=== PATIENT | female | born 1955 | race Caucasian/White ===

== ENCOUNTER 2019-09-01 10:49 | Outpatient (CLI) | payer MEDICAID, SELFPAY ==
--- NOTE | 2019-09-01 | XR_ITS ---
WS: [id number] RIGHT KNEE: 2 VIEW(S) TECHNIQUE: AP and lateral. HISTORY: PAIN JOINT KNEE RIGHT COMPARISON: None available. Moderate narrowing of patellofemoral joint space with osteophytes. Mild narrowing of the medial and l ateral compartments. No fractures or dislocation. Hypertrophic osteophytes along the joint lines, gre atest at the patellofemoral joint space. No joint effusion. No soft tissue abnormality. XR/XR knee RT 1-2V [id number] IMPRESSION: 1. Moderate patellofemoral joint space arthritis. 2. No fracture.
== END 2019-09-01 10:50 | disposition home or self-care (01) ==
LOC: RADWPI 13:18
PROVIDERS: Family Provider Internal Medicine; Visit Provider Family Medicine
DX: M25.561 Pain in right knee (principal)

== ENCOUNTER → 2019-11-02 10:04 | Outpatient (BNVA) | payer MEDICAID, SELFPAY | PROVIDERS: Family Provider Internal Medicine; Referring Provider Family Medicine; Visit Provider Specialist | DX: M25.561 Pain in right knee (principal); M25.562 Pain in left knee; M17.11 Unilateral primary osteoarthritis, right knee | CPT/HCPCS: 73560; 73565 ==

== ENCOUNTER 2020-05-18 08:41 | Emergency (ER) | payer MEDICAID, SELFPAY ==
[2020-05-18 08:50] VITALS: BP 132/77; PULSE 56; RESP 16; TEMP 37.1; O2SAT 96; BMI 40.7
--- NOTE | 2020-05-18 08:50 | XR_ITS ---
WS: [id number] XR chest 1V portable [id number] REASON FOR EXAM: syncope FINDINGS: Mild to moderate tortuosity and ectasia of the thoracic aorta. Normal heart size. Calcified granulomatous changes in both hemithoraces, predominating on the right. No active pulmonary parenchymal pleural disease. Dorsal kyphosis with no significant thoracic vertebral body compression deformity. Mild degenerative spondylosis in the thoracic spine. XR/XR chest 1V portable [id number] IMPRESSION: No acute chest abnormality.
--- NOTE | 2020-05-18 09:20 | ED_ITS ---
HPI - Altered Mental Status General: Chief Complaint: Altered Mental Status Stated Complaint: ALOC, low BS Time Seen by Provider: 05/18/20 08:52 History of Present Illness: HPI narrative: 64-year-old female patient presents to the emergency department via EMS. She was found unresponsive by her spouse, EMS was contacted, CBG reading 47. Glucagon was administered during EMS transport. Patient became alert and oriented. She reports hypoglycemic episodes x2 days. She reports yesterday morning, a.m. CBG fasting was 54. She reports 2-day history of cough congestion. She reports low-grade fever last night at 100.0. She reports history of COPD, she is not on home O2 supplementation. She reports use of inhalers, Ventolin. She reports wheezing. She reports hungry upon exam, she reports feels well, O2 saturation on room air 96%. She denies chest pain or increased shortness of breath. MD complaint: decreased responsiveness (Due to hypoglycemia, now resolved) Timing confirmed by: spouse Context: change in medication and recent fever (100.0 last night) Associated symptoms: Reports no associated symptoms Treatments prior to arrival: glucose Review of Systems General: Reports: 10 or more systems reviewed and unremarkable except in HPI and below Const: Reports: fever(s) and chills; Denies: body aches, fatigue or diaphoresis Eyes: Denies: blurry vision or eye redness ENMT: Denies: throat pain, hoarseness, dental pain, ear or mastoid pain, disequilibrium, nasal discharge, nasal congestion, post nasal drip or sinus pain Card: Reports: swelling of feet/ankles (Chronic, lymphedema); Denies: chest pain, palpitations, irregular heart rhythm or orthopnea Resp: Reports: productive cough (White), wheezing, change in phlegm color and chest congestion; Denies: dyspnea, non-productive cough, pain on inspiration or hemoptysis GI: Denies: abdominal pain, nausea, vomiting, heartburn or constipation : Denies: difficulty voiding or dysuria Musc: Denies: neck pain, back pain or extremity pain Skin/Breast: Denies: rash or pruritus Neuro: Denies: headache(s), weakness in extremities or behavioral changes Mario/Lymph: Denies: easy bruising PFS ED PFSH: Social History Smoking and tobacco status: never smoked Alcohol intake: never Physical Exam Const: COMMON NORMALS: no acute distress, patient oriented x3, healthy appearing, alert and well nourished GENERAL APPEARANCE: cooperative, comfortable, well kempt and well hydrated NUTRITIONAL APPEARANCE: obese ORIENTATION/CONSCIOUSNESS: Yes awake, Yes oriented to person, Yes oriented to place and Yes oriented to time HENMT: COMMON NORMALS: normocephalic, atraumatic, external ears normal, Normal external nose present and moist oral mucous membranes HEAD & SCALP: normal to inspection, normocephalic and atraumatic FACE & SINUS: normal facial exam NOSE: Normal external nose present EXTERNAL EAR: Yes external ears normal MOUTH: Normal oral and palatal mucosa present THROAT: posterior oropharynx normal Eye: COMMON NORMALS: Equal, round and reactive pupils present and EOMs intact bilaterally GENERAL EYE: appearance normal, both eyes and all related structures PUPIL: Yes Equal, round and reactive pupils present Neck/C-Spine: COMMON NORMALS: full ROM, no lymphadenopathy and supple GENERAL: Yes normal visual inspection and Yes trachea midline CERVICAL SPINE: Yes cervical ROM normal Lymph: LYMPHATIC: no lymphadenopathy noted Chest: COMMONS NORMALS: normal inspection of the chest and normal palpation of entire chest wall Resp: COMMON NORMALS: normal respiratory effort and clear to auscultation bilaterally AUSCULTATION: clear to auscultation bilaterally, no rhonchi, no wheezes and diminished lung sounds on the left in the lower lung corona Cardio: COMMON NORMALS: regular rate, regular rhythm, S1 normal heart sound present, S2 normal heart sound present and Peripheral pulses 2+ throughout RATE: regular rate RHYTHM: regular rhythm HEART SOUNDS: S1 normal heart sound present and S2 normal heart sound present PERIPHERAL PULSES: Peripheral pulses 2+ throughout and other (Lymphedema to the BLE. Negative erythema or tenderness to the BLE) GI: COMMON NORMALS: Normal to inspection, nondistended, normoactive bowel sounds present, Soft to palpation and non-tender INSPECTION: Yes normal to inspection PALPATION: Yes Soft to palpation : COMMON NORMALS: Yes no CVA tenderness BLADDER/KIDNEY EXAM: Yes no CVA tenderness Back/Pelvis: COMMON NORMALS: no CVA tenderness and thoracic and lumbar spine normal to inspection Extremity: COMMON NORMALS: normal to inspection and capillary refill normal Neuro: COMMON NORMALS: patient oriented x3 and no focal motor deficits SENSORIUM/ORIENTATION: Yes alert, Yes oriented to person, Yes oriented to place and Yes oriented to time Psych: COMMON NORMALS: mental status grossly normal, Normal thought process present and cooperative APPEARANCE: Yes well kempt ACTIVITY/MOTOR BEHAVIOR: Yes appropriate eye contact THOUGHT PROCESS: Normal thought process present Skin: COMMON NORMALS: no rashes or lesions noted and turgor normal GENERAL SKIN EXAM: no rashes or lesions noted and turgor normal Course ED course: 64-year-old female patient presents to the emergency department with altered mental status, unresponsive secondary to hypoglycemia, blood sugar reading 47. She reports past 2 days of hypoglycemia, remains on glyburide at home. Accu-Chek here in the ED was 170 after eating breakfast. She reports feels great and is requesting to go home. She does not wish to stay in the hospital, she reports upon further evaluation potential possible COVID exposure through healthcare worker who cares for her daughter. Healthcare worker did not have symptoms but is being tested. She agrees to be tested here in the ED with call back to her tomorrow with results. She will be sent home with oxygen sensor, will monitor her oxygen at home and return to the emergency room if her oxygen drops below 92%. During her stay here in the emergency department her O2 saturation has remained 96 to 98% on room air. Reports feels great and agrees to follow-up with her primary care physician Dr. Richards in 5 to 7 days. She agrees to return to the emergency department if she develops chest pain, worsening shortness of breath or worsening symptoms. She is also requesting an antibiotic for her bronchitis. She reports can take amoxicillin but is allergic to penicillin, states penicillin gives her elevated temperature. She states unable to take doxycycline secondary to nausea vomiting that develops. She is requesting amoxicillin as antibiotic choice for bronchitis. She is aware cough and congestion could be related to COVID, viral illness. Agrees to continue with Ventolin inhalers. Vital Signs: Vital signs: Vital Signs Temperature 98.8 F 05/18/20 08:50 Pulse Rate 66 05/18/20 12:30 Respiratory Rate 20 H 05/18/20 12:30 Blood Pressure 158/80 05/18/20 12:30 Pulse Oximetry 96 05/18/20 12:30 MDM - Altered Mental Status Lab Data: Labs: Lab Results 10/07/20 10/07/20 10/07/20 Range/Units 09:39 09:39 09:39 WBC 9.2 (4.0-10.0) 10^3/ uL RBC 4.46 (4.1-5.3) 10^6/u L Hgb 13.7 (11.5-15.3) g/dL Hct 43.2 (37.0-47.0) % MCV 96.9 (81-99) fL MCH 30.7 (28.0-34.0) pg MCHC 31.7 (30.0-36.0) g/dL RDW 13.0 (12.1-15.1) % Plt Count 162 (130-400) 10^3/c mm MPV 10.7 H (7.4-10.4) fL Neut % (Auto) 83.2 % Lymph % (Auto) 7.5 % [place] % (Auto) 9.0 % Eos % (Auto) 0.0 % Baso % (Auto) 0.1 % Neut # (Auto) 7.68 (1.8-7.7) 10^3/u L Lymph # (Auto) 0.7 L (0.8-4.8) 10^3/u L [place] # (Auto) 0.8 (0.2-0.9) 10^3/u L Eos # (Auto) 0.0 (0.0-0.8) 10^3/u L Baso # (Auto) 0.0 (0.0-0.1) 10^3/u L Nucleated RBC % (a uto) 0 % Nucleated RBCs # 0.0 /100WBC Sodium 138 (136-145) mmol/L Potassium 4.2 (3.5-5.1) mmol/L Chloride 101 (98-107) mmol/L Carbon Dioxide 29 (22-29) mmol/L Anion Gap 12.2 (5-19) BUN 20 (8-23) mg/dL Creatinine 1.0 H (0.5-0.9) mg/dL GFR Calculation 55.8 L (90-130) mL/min Glucose 122 H (65-115) mg/dL POC Glucose (70-110) mg/dL Calculated Osmolal ity 290 (285-295) mOsm/k g Lactate 1.3 (0.5-2.2) mmol/L Calcium 9.4 (8.5-10.5) mg/dL Total Bilirubin 0.2 (0.15-1.2) mg/dL AST 32 (0-32) U/L ALT 27 (0-33) U/L Alkaline Phosphata se 74 (35-105) IU/L Total Protein 7.0 (6.6-8.7) g/dL Albumin 4.0 (3.5-5.2) g/dL Globulin 3.0 (1.3-4.6) g/dL Urine Color (Yellow) Urine Appearance (CLEAR) Urine pH (5-7) Ur Specific Gravit y (1.005-1.030) Urine Protein (Negative) Urine Glucose (UA) (Normal) Urine Ketones (Negative) Urine Blood (Negative) Urine Nitrate (Negative) Urine Bilirubin (Negative) Urine Urobilinogen (Negative) mg/dL Ur Leukocyte Esha ase (Negative) Urine RBC (0-2) /hpf Urine WBC (0-5) /hpf Ur Squamous Epith Cells (0-5) /hpf Amorphous Sediment Urine Bacteria (NONE) /hpf 05/18/20 05/18/20 Range/Units 11:13 11:30 WBC (4.0-10.0) 10^3/ uL RBC (4.1-5.3) 10^6/u L Hgb (11.5-15.3) g/dL Hct (37.0-47.0) % MCV (81-99) fL MCH (28.0-34.0) pg MCHC (30.0-36.0) g/dL RDW (12.1-15.1) % Plt Count (130-400) 10^3/c mm MPV (7.4-10.4) fL Neut % (Auto) % Lymph % (Auto) % [place] % (Auto) % Eos % (Auto) % Baso % (Auto) % Neut # (Auto) (1.8-7.7) 10^3/u L Lymph # (Auto) (0.8-4.8) 10^3/u L [place] # (Auto) (0.2-0.9) 10^3/u L Eos # (Auto) (0.0-0.8) 10^3/u L Baso # (Auto) (0.0-0.1) 10^3/u L Nucleated RBC % (a uto) % Nucleated RBCs # /100WBC Sodium (136-145) mmol/L Potassium (3.5-5.1) mmol/L Chloride (98-107) mmol/L Carbon Dioxide (22-29) mmol/L Anion Gap (5-19) BUN (8-23) mg/dL Creatinine (0.5-0.9) mg/dL GFR Calculation (90-130) mL/min Glucose (65-115) mg/dL POC Glucose 173 (70-110) mg/dL Calculated Osmolal ity (285-295) mOsm/k g Lactate (0.5-2.2) mmol/L Calcium (8.5-10.5) mg/dL Total Bilirubin (0.15-1.2) mg/dL AST (0-32) U/L ALT (0-33) U/L Alkaline Phosphata se (35-105) IU/L Total Protein (6.6-8.7) g/dL Albumin (3.5-5.2) g/dL Globulin (1.3-4.6) g/dL Urine Color Yellow (Yellow) Urine Appearance Sl hazy (CLEAR) Urine pH 5 (5-7) Ur Specific Gravit y 1.025 (1.005-1.030) Urine Protein Neg (Negative) Urine Glucose (UA) Norm (Normal) Urine Ketones Negative (Negative) Urine Blood Neg (Negative) Urine Nitrate Negative (Negative) Urine Bilirubin Neg (Negative) Urine Urobilinogen Norm (Negative) mg/dL Ur Leukocyte Esha ase Trace H (Negative) Urine RBC 0-4 H (0-2) /hpf Urine WBC 5-10 H (0-5) /hpf Ur Squamous Epith Cells 5-10 H (0-5) /hpf Amorphous Sediment Not Reportable Urine Bacteria 4+ H (NONE) /hpf Imaging Data^: CXR: Radiologist's impression: [address] [address] XRay Report Signed Patient: Celeste Rose #: [id number] : 6Acct#:[id number] Age/Sex: 64 / FADM Date: 05/18/20 Loc: ERRoom/Bed: Attending Dr: Ordering Provider/Ordering MD: Christine Conley Date of Service: 05/18/20 Procedure(s): XR chest 1V portable [id number] Accession Number(s): [id number] Report Number: [id number] WS: [id number] XR chest 1V portable [id number] REASON FOR EXAM: syncope FINDINGS: Mild to moderate tortuosity and ectasia of the thoracic aorta. Normal heart size. Calcified granulomatous changes in both hemithoraces, predominating on the right. No active pulmonary parenchymal pleural disease. Dorsal kyphosis with no significant thoracic vertebral body compression deformity. Mild degenerative spondylosis in the thoracic spine. XR/XR chest 1V portable [id number] IMPRESSION: No acute chest abnormality. Dictated By:Dagobetro Covington Jr, MD Signed By:Dagoberto Covington Jr MDSigned Date/Time:05/18/20912 DD/ 0 Discharge Plan Discharge Patient Disposition: Home Clinical Impression: Hypoglycemia, Acute bronchitis with COPD, Suspected 2019-nCoV infection Condition: Stable Prescriptions: New Augmentin 875-125 mg tablet 1 tab PO Q12H Qty: 14 RF: 0 Discontinued glyburide 5 mg Tablet 10 mg PO BID RF: 0 No Action acyclovir 200 mg capsule 400 mg PO BID RF: 0 cholecalciferol (vitamin D3) 25,000 unit capsule 50,000 unit PO .weekly RF: 0 fluoxetine 20 mg capsule 20 mg PO DAILY RF: 0 rosuvastatin 10 mg tablet 10 mg PO DAILY RF: 0 furosemide [Lasix] 40 mg tablet 40 mg PO DAILY RF: 0 losartan 50 mg tablet 50 mg PO DAILY RF: 0 Bydureon BCise 2 mg/0.85 mL auto-injector 2 mg SUBCUT Q7D RF: 0 valacyclovir 500 mg tablet 500 mg PO DAILY PRNRF: 0 psyllium husk [Daily Fiber] 0.52 gram capsule 0.52 gm PO TID RF: 0 Discharge Orders: Discharge Order (Routine); Ordered 05/18/20 Ordered By: Christine Conley Referrals: Irene Valladares [Family Provider] - Discharge Diet: Usual diet Discharge Activity: Resume usual activity Patient Instructions: Hypoglycemia, Chronic Bronchitis (ED) Activity Restrictions/Additional Instructions: COVID-19 results will be called to you, you were tested in the emergency department You have been supplied in oxygen sensor. Monitor your oxygen several times daily, if oxygen saturation drops below 92%, you are to return to the emergency department. Continue Tylenol as needed for fever/chills. Take antibiotics until all gone. Continue inhalers as directed Follow-up with your primary care provider in 5 to 7 days If you develop worsening shortness of breath, worsening cough or development of chest pain, low oxygen level of less than 92%, you will need to return to the emergency department for evaluation. Appointment with Dr. Richards on May 25, 2020, Saturday, at 10:45 AM. Eat frequent meals. Continue to monitor blood sugars and record for your follow-up appointment with Dr. Richards, stop glyburide Discharge Date/Time: 05/18/20 13:21 Coding Level of Care Code ED Livestock Farmworker for Chg Fwd Exam Comprehensive
[2020-05-18 09:47] LABS: Basophils % 0.1 %; Hematocrit 43.2 % (37.0-47.0); Hemoglobin 13.7 g/dL (11.5-15.3); Lymphocytes # 0.7 10^3/uL (0.8-4.8); Lymphocytes % 7.5 %; Mean Corpuscular HGB Conc 31.7 g/dL (30.0-36.0); Mean Corpuscular Hemoglobin 30.7 pg (28.0-34.0); Mean Corpuscular Volume 96.9 fL (81-99); Mean Platelet Volume 10.7 fL (7.4-10.4); Monocytes # 0.8 10^3/uL (0.2-0.9); Neutrophils # 7.68 10^3/uL (1.8-7.7); Neutrophils % 83.2 %; Nucleated Red Blood Cells % 0 %; Platelet Count 162 10^3/cmm (130-400); Red Blood Count 4.46 10^6/uL (4.1-5.3); White Blood Count 9.2 10^3/uL (4.0-10.0)
[2020-05-18 10:04] LABS: Alanine Aminotransferase 27 U/L (0-33); Alkaline Phosphatase 74 IU/L (35-105); Anion Gap 12.2 (5-19); Aspartate Amino Transferase 32 U/L (0-32); Blood Urea Nitrogen 20 mg/dL (8-23); Calcium 9.4 mg/dL (8.5-10.5); Carbon Dioxide 29 mmol/L (22-29); Chloride 101 mmol/L (98-107); Glomerular Filtration Rate 55.8 mL/min (90-130); Glucose 122 mg/dL (65-115); Osmolality Calculated 290 mOsm/kg (285-295); Potassium 4.2 mmol/L (3.5-5.1); Sodium 138 mmol/L (136-145); Total Bilirubin 0.2 mg/dL (0.15-1.2)
[2020-05-18 10:05] LABS: Lactate (Lactic Acid level) 1.3 mmol/L (0.5-2.2)
[2020-05-18 11:15] LABS: Glucose Point of Care 173 mg/dL (70-110)
[2020-05-18 11:48] LABS: Add Urine Microscopic? YES; Bilirubin Urine Neg (Negative); Blood Urine Neg (Negative); Glucose Urine UA Norm (Normal); Ketones Urine Negative (Negative); Leukocyte Esterase Urine Trace (Negative); Nitrate Urine Negative (Negative); Protein Urine Neg (Negative); Specific Gravity, Urine 1.025 (1.005-1.030); Urine Appearance SL Hazy (CLEAR); Urine Color Yellow (Yellow); Urobilinogen Urine Norm (Negative); pH Urine 5 (5-7)
[2020-05-18 11:51] LABS: Bacteria Urine 4+ /hpf; RBC Urine 0-4 /hpf (0-2)
[2020-05-18 11:52] LABS: Add Urine Culture? Yes
--- NOTE | 2020-05-18 11:57 | DCPLANNER ---
auto fleet manager was asked to schedule a follow up appointment for patient with primary care physician. auto fleet manager called [facility] [place], a follow up appointment was scheduled for Monday, May 25, 2020 at 10:[address] Richards. auto fleet manager informed ED physician of the scheduled appointment.
[2020-05-18 12:30] VITALS: BP 158/80; PULSE 66; RESP 20; O2SAT 96
[2020-05-19 20:17] LABS: Quest SARS-CoV-2 RNA DETECTED (NOT DETECTED)
--- NOTE | 2020-05-20 08:32 | PC.NURSE ---
Pt called and notified of positive COVID result.
--- NOTE | 2020-06-03 16:48 | DCPLANNER ---
Patient had a follow up appointment scheduled for 05.25.20 at [facility] with Dr. Richards - appointment was cancelled.
== END 2020-05-18 13:21 | disposition home or self-care (01) ==
PROVIDERS: Emergency Provider Nurse Practitioner Family; Family Provider Internal Medicine
DX: U07.1 COVID-19 (principal); J44.0 Chronic obstructive pulmonary disease with (acute) lower respiratory infection; E16.2 Hypoglycemia, unspecified
CPT/HCPCS: 12345; 36416; 71045; 80053; 81001; 82962; 83605; 85025; 87086; 87635; 99283; 99284; 99291

== ENCOUNTER 2020-05-28 12:05 | Emergency (ER) | payer MEDICAID, SELFPAY ==
[2020-05-28 12:13] VITALS: PULSE 63; RESP 14; TEMP 36.8; O2SAT 94; BMI 42.3
--- NOTE | 2020-05-28 12:23 | XRR_ITS ---
PROCEDURE INFORMATION: Exam: XR Chest, 1 View Exam date and time: 05/28/2020 12:24 PM Age: 64 years old Clinical indication: Cough; Additional info: Covid +, cough TECHNIQUE: Imaging protocol: XR of the chest Views: 1 view. COMPARISON: CR XR chest 1V portable [id number] 05/18/2020 8:55 AM FINDINGS: Lungs: Right upper lobe granuloma is seen stable since prior. The lungs are otherwise clear Pleural space: Unremarkable. No pleural effusion. No pneumothorax. Heart/Mediastinum: Unremarkable. No cardiomegaly. Bones/joints: Unremarkable. XR/XR chest 1V portable [id number] IMPRESSION: No acute findings.
--- NOTE | 2020-05-28 12:29 | ED_ITS ---
HPI - General Adult General: Chief complaint: General Medical Stated complaint: COVID +/cough Time Seen by Provider: 05/28/20 12:23 History of Present Illness: HPI narrative: Patient presents with Covid positive patient today she got a cough going on is got some sinus drainage. Sats have been up and high 80s low 90s up to 94% while walking. Denies fever diarrhea loss of taste or smell. Does have some dysuria. She states that she not take her diabetic medications right now because I told her to stop and then she tells medication person that she just out. She had some medicines filled at the end of the month. She said blood sugars she is checking them the run about the 120s 140s complaint: Covid positive with cough Onset (ago): day(s) Associated symptoms: Reports cough; Deny chest pain, dyspnea, headache(s), nausea, rash or vomiting Review of Systems Const: Denies: fever(s), chills or body aches Eyes: Denies: change in vision or blurry vision ENMT: Reports: nasal congestion and sinus pain; Denies: throat pain Card: Denies: chest pain or dyspnea on exertion Resp: Reports: non-productive cough; Denies: dyspnea or productive cough GI: Denies: abdominal pain, nausea or vomiting Musc: Denies: extremity pain Skin/Breast: Denies: rash Neuro: Denies: headache(s) Psych: Denies: anxiety or depression Mario/Lymph: Denies: easy bruising PFS ED PFSH: Social History Smoking and tobacco status: never smoked Alcohol intake: never Physical Exam Const: COMMON NORMALS: no acute distress, average body habitus and patient oriented x3 HENMT: COMMON NORMALS: normocephalic HEAD & SCALP: normal to inspection and normocephalic FACE & SINUS: normal facial exam Eye: COMMON NORMALS: conjunctivae normal GENERAL EYE: appearance normal, both eyes and all related structures CONJUNCTIVA: Yes conjunctivae normal Neck/C-Spine: COMMON NORMALS: no JVD Chest: COMMONS NORMALS: normal inspection of the chest Resp: COMMON NORMALS: normal respiratory effort Cardio: COMMON NORMALS: no JVD, regular rate and regular rhythm RATE: regular rate RHYTHM: regular rhythm Extremity: COMMON NORMALS: normal to inspection and full ROM Neuro: COMMON NORMALS: patient oriented x3 Course Vital Signs: Vital signs: Vital Signs Temperature 98.2 F 05/28/20 12:13 Pulse Rate 87 05/28/20 13:08 Respiratory Rate 18 05/28/20 13:08 Blood Pressure 152/86 05/28/20 13:08 Pulse Oximetry 97 05/28/20 13:08 [facility] - General Adult Lab Data: Labs: Lab Results 05/28/20 05/28/20 05/28/20 Range/Units 12:49 12:49 13:07 WBC 4.2 (4.0-10.0) 10^3/ uL RBC 4.45 (4.1-5.3) 10^6/u L Hgb 13.4 (11.5-15.3) g/dL Hct 41.8 (37.0-47.0) % MCV 93.9 (81-99) fL MCH 30.1 (28.0-34.0) pg MCHC 32.1 (30.0-36.0) g/dL RDW 12.7 (12.1-15.1) % Plt Count 169 (130-400) 10^3/c mm MPV 10.1 (7.4-10.4) fL Neut % (Auto) 44.3 % Lymph % (Auto) 39.2 % [place] % (Auto) 14.7 % Eos % (Auto) 1.4 % Baso % (Auto) 0.2 % Neut # (Auto) 1.86 (1.8-7.7) 10^3/u L Lymph # (Auto) 1.7 (0.8-4.8) 10^3/u L [place] # (Auto) 0.6 (0.2-0.9) 10^3/u L Eos # (Auto) 0.1 (0.0-0.8) 10^3/u L Baso # (Auto) 0.0 (0.0-0.1) 10^3/u L Nucleated RBC % (a uto) 0 % Nucleated RBCs # 0.0 /100WBC Sodium 142 (136-145) mmol/L Potassium 4.0 (3.5-5.1) mmol/L Chloride 109 H (98-107) mmol/L Carbon Dioxide 24 (22-29) mmol/L Anion Gap 13.0 (5-19) BUN 16 (8-23) mg/dL Creatinine 0.8 (0.5-0.9) mg/dL GFR Calculation 72.2 L (90-130) mL/min Glucose 155 H (65-115) mg/dL Calculated Osmolal ity 298 H (285-295) mOsm/k g Calcium 9.9 (8.5-10.5) mg/dL Total Bilirubin 0.4 (0.15-1.2) mg/dL AST 26 (0-32) U/L ALT 21 (0-33) U/L Alkaline Phosphata se 77 (35-105) IU/L Total Protein 6.8 (6.6-8.7) g/dL Albumin 3.4 L (3.5-5.2) g/dL Globulin 3.4 (1.3-4.6) g/dL Urine Color Dark yellow (Yellow) Urine Appearance Hazy A (CLEAR) Urine pH 5 (5-7) Ur Specific Gravit y 1.020 (1.005-1.030) Urine Protein 1+ H (Negative) Urine Glucose (UA) Norm (Normal) Urine Ketones 1+ H (Negative) Urine Blood 3+ H (Negative) Urine Nitrate Negative (Negative) Urine Bilirubin 1+ H (Negative) Urine Urobilinogen 4 H (Negative) mg/dL Ur Leukocyte Esha ase Trace H (Negative) Urine RBC 25-40 H (0-2) /hpf Urine WBC 25-40 H (0-5) /hpf Ur Squamous Epith Cells 80-100 H (0-5) /hpf Ur Transition Epit h Cell 5-10 /hpf Amorphous Sediment Not Reportable Urine Bacteria 2+ H (NONE) /hpf Urine Mucus 3+ /hpf Discharge Plan Discharge Patient Disposition: Home Clinical Impression: COVID-19, Sinus complaint Hematuria Qualifiers: Hematuria type: benign essential microscopic Qualified Code(s): R31.1 - Benign essential microscopic hematuria Condition: Stable Prescriptions: New Decadron 6 mg tablet 6 mg PO DAILY Qty: 7 RF: 0 Zithromax Z-Rizwan 250 mg tablet See Rx Instructions .ROUTE .COMPLEX Qty: 6 RF: 0 No Action acyclovir 200 mg capsule 400 mg PO BID RF: 0 cholecalciferol (vitamin D3) 25,000 unit capsule 50,000 unit PO .weekly RF: 0 fluoxetine 20 mg capsule 20 mg PO DAILY RF: 0 rosuvastatin 10 mg tablet 10 mg PO DAILY RF: 0 furosemide [Lasix] 40 mg tablet 40 mg PO DAILY RF: 0 losartan 50 mg tablet 50 mg PO DAILY RF: 0 psyllium husk [Daily Fiber] 0.52 gram capsule 0.52 gm PO TID RF: 0 Discharge Orders: Discharge Order (Routine); Ordered 05/28/20 Ordered By: Guido Platt Referrals: Irene Valladares [Primary Care Provider] - Discharge Diet: Advance as tolerated Discharge Activity: Resume usual activity Patient Instructions: Upper Respiratory Infection (ED) Activity Restrictions/Additional Instructions: Follow-up with medical provider as directed. Take medications as prescribed. Return to the ER or your medical provider if condition worsens. Please read and understand discharge instructions. If any questions ask please. Coding Level of Care Code ED Steel Rule Die Maker Apprentice for Karl Fwd Exam Comprehensive
[2020-05-28 12:56] LABS: Basophils % 0.2 %; Eosinophils # 0.1 10^3/uL (0.0-0.8); Eosinophils % 1.4 %; Hematocrit 41.8 % (37.0-47.0); Hemoglobin 13.4 g/dL (11.5-15.3); Lymphocytes # 1.7 10^3/uL (0.8-4.8); Lymphocytes % 39.2 %; Mean Corpuscular HGB Conc 32.1 g/dL (30.0-36.0); Mean Corpuscular Hemoglobin 30.1 pg (28.0-34.0); Mean Corpuscular Volume 93.9 fL (81-99); Mean Platelet Volume 10.1 fL (7.4-10.4); Monocytes # 0.6 10^3/uL (0.2-0.9); Monocytes % 14.7 %; Neutrophils # 1.86 10^3/uL (1.8-7.7); Neutrophils % 44.3 %; Nucleated Red Blood Cells % 0 %; Platelet Count 169 10^3/cmm (130-400); Red Blood Count 4.45 10^6/uL (4.1-5.3); Red Cell Distribution Width 12.7 % (12.1-15.1); White Blood Count 4.2 10^3/uL (4.0-10.0)
[2020-05-28 13:08] VITALS: BP 152/86; PULSE 87; RESP 18; O2SAT 97
[2020-05-28 13:22] LABS: Alanine Aminotransferase 21 U/L (0-33); Albumin Level 3.4 g/dL (3.5-5.2); Alkaline Phosphatase 77 IU/L (35-105); Aspartate Amino Transferase 26 U/L (0-32); Blood Urea Nitrogen 16 mg/dL (8-23); Calcium 9.9 mg/dL (8.5-10.5); Carbon Dioxide 24 mmol/L (22-29); Chloride 109 mmol/L (98-107); Globulin 3.4 g/dL (1.3-4.6); Glomerular Filtration Rate 72.2 mL/min (90-130); Glucose 155 mg/dL (65-115); Osmolality Calculated 298 mOsm/kg (285-295); Sodium 142 mmol/L (136-145); Total Bilirubin 0.4 mg/dL (0.15-1.2); Total Protein 6.8 g/dL (6.6-8.7)
[2020-05-28 13:34] LABS: Blood Urine 3+ (Negative); Glucose Urine UA Norm (Normal); Ketones Urine 1+ (Negative); Protein Urine 1+ (Negative); Urine Appearance Hazy (CLEAR); Urine Color Dark Yellow (Yellow); pH Urine 5 (5-7)
[2020-05-28 13:35] LABS: Nitrate Urine Negative (Negative)
[2020-05-28 13:36] LABS: Add Urine Microscopic? YES; Bilirubin Urine 1+ (Negative); Leukocyte Esterase Urine Trace (Negative); Urobilinogen Urine 4 mg/dL (Negative)
[2020-05-28 13:38] LABS: RBC Urine 25-40 /hpf (0-2); Squamous Epithelial Cell Urine 80-100 /hpf (0-5); WBC Urine 25-40 /hpf (0-5)
[2020-05-28 13:39] LABS: Add Urine Culture? No; Bacteria Urine 2+ /hpf; Mucus Urine 3+ /hpf
--- NOTE | 2020-05-28 13:55 | PC.NURSE ---
pt Pradeep contacted at pt's request for a ride home.
== END 2020-05-28 14:57 | disposition home or self-care (01) ==
PROVIDERS: Emergency Provider Nurse Practitioner Family; PCP Internal Medicine
DX: U07.1 COVID-19 (principal); R31.1 Benign essential microscopic hematuria
CPT/HCPCS: 12345; 36415; 71045; 80053; 81001; 85025; 99281; 99283

== ENCOUNTER 2020-06-06 09:42 | Emergency (ER) | payer MEDICAID, SELFPAY ==
--- NOTE | 2020-06-06 09:49 | XR_ITS ---
WS: [id number] Exam: XR chest 1V portable [id number] Date/Time of Exam: 06/06/2020 9:49 AM Reason For Exam: dyspnea/cough Comparison 05/28/2020. The lungs are clear and fully expanded. Normal cardiomediastinal structures and bony elements. No ple ural effusions. XR/XR chest 1V portable [id number] IMPRESSION: 1. No acute cardiopulmonary finding. No change.
--- NOTE | 2020-06-06 09:50 | ECG_ITS ---
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 Measurements Intervals [place] Rate: 62 P: -1 WV: 149 QRS: -48 QRSD: 102 T: 49 QT: 389 QTc: 396 Interpretive Statements SINUS RHYTHM LEFT ANTERIOR FASCICULAR BLOCK [QRS AXIS <= -45, QR IN I, RS IN II] Compared to ECG 12/06/2015 19:32:45 Left anterior fascicular block now present Sinus bradycardia no longer present Myocardial infarct finding no longer present Electronically Signed On 06-07-2020 7:19:55 CDT by Waleska Dumont M.D. [id number] [email or web address]
[2020-06-06 09:51] VITALS: BP 152/77; PULSE 98; RESP 18; TEMP 36.6; O2SAT 97; BMI 42.3
--- NOTE | 2020-06-06 09:51 | W.ED.SOB ---
HPI - SOB/Dyspnea General: Chief Complaint: Upper Respiratory Infection Stated Complaint: COVID+ 10 Cough/Weak Time Seen by Provider: 06/06/20 09:47 History of Present Illness: HPI Narrative: 64-year-old female who presents to the emergency room with complaints of cough and generalized weakness. She tested positive on May 18 with a PCR test here at the hospital as documented in the chart. Complaining of cough and some chest discomfort. Some generalized weakness. She has not had any vomiting or diarrhea myalgias have resolved as well. MD elicited complaint: shortness of breath and cough Pertinent past history: other (Covid + 05/18/2020) Context: recent illness (COVID-19) Timing: intermittent and progressively worsening Severity: moderate Exacerbating factors: exertion and coughing Relieving factors: rest Known history of: diabetes Associated symptoms: Reports chest congestion, chest pain and cough; Deny abdominal pain, diaphoresis, dizziness, extremity pain, fever(s), hemoptysis, lightheadedness, myalgias, nausea, orthopnea, palpitations, paresthesias, polydipsia, polyuria, rash, sense of impending doom, syncope or vomiting Treatment prior to arrival: none Review of Systems Const: Denies: fever(s) or diaphoresis ENMT: Denies: throat pain, ear or mastoid pain, nasal discharge or nasal congestion Card: Reports: chest pain; Denies: palpitations, lightheadedness, syncope or orthopnea Resp: Reports: chest congestion; Denies: hemoptysis GI: Denies: abdominal pain, nausea or vomiting : Denies: flank pain, difficulty voiding, dysuria, urinary frequency or urinary urgency Musc: Denies: extremity pain Skin/Breast: Denies: rash or pruritus Neuro: Denies: dizziness Endo: Denies: polyuria or polydipsia PFSH ED PFSH: Social History Smoking and tobacco status: never smoked Alcohol intake: never Physical Exam Const: COMMON NORMALS: no acute distress GENERAL APPEARANCE: cooperative and comfortable ORIENTATION/CONSCIOUSNESS: Yes awake, Yes oriented to person, Yes oriented to place and Yes oriented to time HENMT: COMMON NORMALS: normocephalic, atraumatic and hearing grossly normal bilaterally HEAD & SCALP: normocephalic and atraumatic Eye: COMMON NORMALS: Equal, round and reactive pupils present, EOMs intact bilaterally, conjunctivae normal and no scleral icterus CONJUNCTIVA: Yes conjunctivae normal PUPIL: Yes Equal, round and reactive pupils present Neck/C-Spine: COMMON NORMALS: full ROM, no lymphadenopathy, supple and no JVD Lymph: LYMPHATIC: no lymphadenopathy noted and no lymphedema noted Resp: COMMON NORMALS: normal respiratory effort, No retractions, No use of accessory muscles and clear to auscultation bilaterally AUSCULTATION: clear to auscultation bilaterally Cardio: COMMON NORMALS: no JVD, regular rate, regular rhythm and No murmurs present (Cardio) RATE: regular rate RHYTHM: regular rhythm GI: COMMON NORMALS: Soft to palpation and No hepatosplenomegaly present AUSCULTATION: Yes normoactive bowel sounds PALPATION: Yes Soft to palpation, No Tenderness to palpation present (GI), No Guarding due to palpation present (GI) and Yes No hepatosplenomegaly present Extremity: COMMON NORMALS: normal to inspection, capillary refill normal, no clubbing, cyanosis or edema, no calf tenderness and no pedal edema Neuro: SENSORIUM/ORIENTATION: Yes oriented to person, Yes oriented to place and Yes oriented to time Skin: COMMON NORMALS: no rashes or lesions noted GENERAL SKIN EXAM: no rashes or lesions noted Course Vital Signs: Vital signs: Vital Signs Temperature 97.8 F 06/06/20 16:01 Pulse Rate 82 06/06/20 16:01 Respiratory Rate 24 H 06/06/20 16:01 Blood Pressure 133/57 06/06/20 16:01 Pulse Oximetry 94 06/06/20 16:01 MDM - SOB/Dyspnea MDM Narrative: Medical decision making narrative: Patient was found to have pulmonary embolism most likely secondary to her COVID-19 infection as part of this sequela. We will go ahead and start her on Eliquis standard treatment regimen have her follow-up with her regular doctor in 1 to 2 days any worsening or change symptoms recheck Lab Data: Labs: Lab Results 06/06/20 06/06/20 06/06/20 Range/Units 10:23 11:06 11:06 WBC 12.2 H (4.0-10.0) 10^3/ uL RBC 4.96 (4.1-5.3) 10^6/u L Hgb 14.8 (11.5-15.3) g/dL Hct 45.6 (37.0-47.0) % MCV 91.9 (81-99) fL MCH 29.8 (28.0-34.0) pg MCHC 32.5 (30.0-36.0) g/dL RDW 12.5 (12.1-15.1) % Plt Count 160 (130-400) 10^3/c mm MPV 11.8 H (7.4-10.4) fL Neut % (Auto) 64.3 % Lymph % (Auto) 21.3 % [place] % (Auto) 11.6 % Eos % (Auto) 1.0 % Baso % (Auto) 0.2 % Neut # (Auto) 7.86 H (1.8-7.7) 10^3/u L Lymph # (Auto) 2.6 (0.8-4.8) 10^3/u L [place] # (Auto) 1.4 H (0.2-0.9) 10^3/u L Eos # (Auto) 0.1 (0.0-0.8) 10^3/u L Baso # (Auto) 0.0 (0.0-0.1) 10^3/u L Nucleated RBC % (a uto) 0 % Nucleated RBCs # 0.0 /100WBC D-Dimer 5.61 H (0-0.59) ug/mIFE U Specimen Type Arterial Sample Site Radial, left ABG pH 7.44 (7.35-7.45) ABG pCO2 37.5 (35-45) mmHg ABG pO2 78.8 L (80.0-100.0) mmH g ABG HCO3 25.2 (22-26) mmol/L ABG O2 Saturation 97.1 ABG Base Excess 1.2 (-2.0-2.0) mmol/ L Jean Marie Test Pos A-a O2 Gradient 3.2 L (5-10) mmHg Hematocrit 47.5 H (37-47) % Hgb O2 Saturation 95.4 (95-100) % Carboxyhemoglobin 1.2 (0.4-20.1) %THgb Methemoglobin 0.6 (0.4-1.5) % Total Hemoglobin 15.5 (12-16) g/dL Sodium 141.0 (131-143) mmol/L Potassium 3.9 (3.5-5.0) mmol/L Glucose 232.0 H (70-115) mg/dL Ionized Calcium 1.3 (1.1-1.4) mmol/L O2 Delivery Device Room air FiO2 21.0 % [place] [employer] [address] ID glc Chloride (98-107) mmol/L Carbon Dioxide (22-29) mmol/L Anion Gap (5-19) BUN (8-23) mg/dL Creatinine (0.5-0.9) mg/dL GFR Calculation (90-130) mL/min Calculated Osmolal ity (285-295) mOsm/k g Calcium (8.5-10.5) mg/dL Total Bilirubin (0.15-1.2) mg/dL AST (0-32) U/L ALT (0-33) U/L Alkaline Phosphata se (35-105) IU/L Troponin T Baselin e (0-10) ng/L Troponin T 120 Min [place] (0-10) ng/L Delta Troponin T (0-10) ABS# Total Protein (6.6-8.7) g/dL Albumin (3.5-5.2) g/dL Globulin (1.3-4.6) g/dL Urine Color (Yellow) Urine Appearance (CLEAR) Urine pH (5-7) Ur Specific Gravit y (1.005-1.030) Urine Protein (Negative) Urine Glucose (UA) (Normal) Urine Ketones (Negative) Urine Blood (Negative) Urine Nitrate (Negative) Urine Bilirubin (Negative) Urine Urobilinogen (Negative) mg/dL Ur Leukocyte Esha ase (Negative) Urine RBC (0-2) /hpf Urine WBC (0-5) /hpf Ur Squamous Epith Cells (0-5) /hpf Calcium Oxalate Cr ystal /hpf Amorphous Sediment /hpf Urine Bacteria (NONE) /hpf Urine Mucus /hpf 06/06/20 06/06/20 06/06/20 Range/Units 11:06 11:06 12:14 WBC (4.0-10.0) 10^3/ uL RBC (4.1-5.3) 10^6/u L Hgb (11.5-15.3) g/dL Hct (37.0-47.0) % MCV (81-99) fL MCH (28.0-34.0) pg MCHC (30.0-36.0) g/dL RDW (12.1-15.1) % Plt Count (130-400) 10^3/c mm MPV (7.4-10.4) fL Neut % (Auto) % Lymph % (Auto) % [place] % (Auto) % Eos % (Auto) % Baso % (Auto) % Neut # (Auto) (1.8-7.7) 10^3/u L Lymph # (Auto) (0.8-4.8) 10^3/u L [place] # (Auto) (0.2-0.9) 10^3/u L Eos # (Auto) (0.0-0.8) 10^3/u L Baso # (Auto) (0.0-0.1) 10^3/u L Nucleated RBC % (a uto) % Nucleated RBCs # /100WBC D-Dimer (0-0.59) ug/mIFE U Specimen Type Sample Site ABG pH (7.35-7.45) ABG pCO2 (35-45) mmHg ABG pO2 (80.0-100.0) mmH g ABG HCO3 (22-26) mmol/L ABG O2 Saturation ABG Base Excess (-2.0-2.0) mmol/ L Jean Marie Test A-a O2 Gradient (5-10) mmHg Hematocrit (37-47) % Hgb O2 Saturation (95-100) % Carboxyhemoglobin (0.4-20.1) %THgb Methemoglobin (0.4-1.5) % Total Hemoglobin (12-16) g/dL Sodium 136 (131-143) mmol/L Potassium 4.0 (3.5-5.0) mmol/L Glucose 229 H (70-115) mg/dL Ionized Calcium (1.1-1.4) mmol/L O2 Delivery Device FiO2 % [place] [address] [employer] [address] ID Chloride 103 (98-107) mmol/L Carbon Dioxide 24 (22-29) mmol/L Anion Gap 13.0 (5-19) BUN 26 H (8-23) mg/dL Creatinine 0.9 (0.5-0.9) mg/dL GFR Calculation 63.0 L (90-130) mL/min Calculated Osmolal ity 294 (285-295) mOsm/k g Calcium 10.1 (8.5-10.5) mg/dL Total Bilirubin 0.5 (0.15-1.2) mg/dL AST 11 (0-32) U/L ALT 25 (0-33) U/L Alkaline Phosphata se 74 (35-105) IU/L Troponin T Baselin e 18 H (0-10) ng/L Troponin T 120 Min [place] (0-10) ng/L Delta Troponin T (0-10) ABS# Total Protein 6.2 L (6.6-8.7) g/dL Albumin 3.5 (3.5-5.2) g/dL Globulin 2.7 (1.3-4.6) g/dL Urine Color Dark yellow (Yellow) Urine Appearance Sl hazy (CLEAR) Urine pH 5 (5-7) Ur Specific Gravit y 1.025 (1.005-1.030) Urine Protein Trace (Negative) Urine Glucose (UA) Norm (Normal) Urine Ketones 1+ H (Negative) Urine Blood 2+ H (Negative) Urine Nitrate Negative (Negative) Urine Bilirubin 1+ H (Negative) Urine Urobilinogen Norm (Negative) mg/dL Ur Leukocyte Esha ase 1+ H (Negative) Urine RBC 5-10 H (0-2) /hpf Urine WBC 5-10 H (0-5) /hpf Ur Squamous Epith Cells 5-10 H (0-5) /hpf Calcium Oxalate Cr ystal 10-15 H /hpf Amorphous Sediment 1+ /hpf Urine Bacteria 1+ H (NONE) /hpf Urine Mucus Trace /hpf 06/06/20 Range/Units 14:07 WBC (4.0-10.0) 10^3/ uL RBC (4.1-5.3) 10^6/u L Hgb (11.5-15.3) g/dL Hct (37.0-47.0) % MCV (81-99) fL MCH (28.0-34.0) pg MCHC (30.0-36.0) g/dL RDW (12.1-15.1) % Plt Count (130-400) 10^3/c mm MPV (7.4-10.4) fL Neut % (Auto) % Lymph % (Auto) % [place] % (Auto) % Eos % (Auto) % Baso % (Auto) % Neut # (Auto) (1.8-7.7) 10^3/u L Lymph # (Auto) (0.8-4.8) 10^3/u L [place] # (Auto) (0.2-0.9) 10^3/u L Eos # (Auto) (0.0-0.8) 10^3/u L Baso # (Auto) (0.0-0.1) 10^3/u L Nucleated RBC % (a uto) % Nucleated RBCs # /100WBC D-Dimer (0-0.59) ug/mIFE U Specimen Type Sample Site ABG pH (7.35-7.45) ABG pCO2 (35-45) mmHg ABG pO2 (80.0-100.0) mmH g ABG HCO3 (22-26) mmol/L ABG O2 Saturation ABG Base Excess (-2.0-2.0) mmol/ L Jean Marie Test A-a O2 Gradient (5-10) mmHg Hematocrit (37-47) % Hgb O2 Saturation (95-100) % Carboxyhemoglobin (0.4-20.1) %THgb Methemoglobin (0.4-1.5) % Total Hemoglobin (12-16) g/dL Sodium (131-143) mmol/L Potassium (3.5-5.0) mmol/L Glucose (70-115) mg/dL Ionized Calcium (1.1-1.4) mmol/L O2 Delivery Device FiO2 % [place] [employer] [facility] ID Chloride (98-107) mmol/L Carbon Dioxide (22-29) mmol/L Anion Gap (5-19) BUN (8-23) mg/dL Creatinine (0.5-0.9) mg/dL GFR Calculation (90-130) mL/min Calculated Osmolal ity (285-295) mOsm/k g Calcium (8.5-10.5) mg/dL Total Bilirubin (0.15-1.2) mg/dL AST (0-32) U/L ALT (0-33) U/L Alkaline Phosphata se (35-105) IU/L Troponin T Baselin e (0-10) ng/L Troponin T 120 Min [place] 15.94 H (0-10) ng/L Delta Troponin T -2.06 L (0-10) ABS# Total Protein (6.6-8.7) g/dL Albumin (3.5-5.2) g/dL Globulin (1.3-4.6) g/dL Urine Color (Yellow) Urine Appearance (CLEAR) Urine pH (5-7) Ur Specific Gravit y (1.005-1.030) Urine Protein (Negative) Urine Glucose (UA) (Normal) Urine Ketones (Negative) Urine Blood (Negative) Urine Nitrate (Negative) Urine Bilirubin (Negative) Urine Urobilinogen (Negative) mg/dL Ur Leukocyte Esha ase (Negative) Urine RBC (0-2) /hpf Urine WBC (0-5) /hpf Ur Squamous Epith Cells (0-5) /hpf Calcium Oxalate Cr ystal /hpf Amorphous Sediment /hpf Urine Bacteria (NONE) /hpf Urine Mucus /hpf Discharge Plan Discharge Patient Disposition: Home Clinical Impression: Pulmonary embolism, COVID-19 Condition: Stable Prescriptions: New iCatapult DVT-PE Treat 30D Start 5 mg (74 tabs) tablets,dose pack See Rx Instructions .ROUTE .COMPLEX Qty: 74 RF: 0 No Action fluoxetine 20 mg capsule 20 mg PO DAILY RF: 0 rosuvastatin 10 mg tablet 10 mg PO DAILY RF: 0 furosemide [Lasix] 40 mg tablet 40 mg PO DAILY RF: 0 losartan 50 mg tablet 50 mg PO DAILY RF: 0 glyburide 5 mg Tablet See Rx Instructions .ROUTE .COMPLEX RF: 0 acyclovir 400 mg Tablet 400 mg PO BID RF: 0 Fiber-Tabs 625 mg Tablet 625 mg PO TID PRN (Reason: unknown) RF: 0 ergocalciferol (vitamin D2) 1,250 mcg (50,000 unit) Capsule 50,000 unit PO Q7D RF: 0 Farnaz-[place] Plus Sinus-Cough 5-10-325 mg Capsule 1 cap PO BID PRN (Reason: unknown) RF: 0 Bydureon 2 mg/0.65 mL Pen Injector See Rx Instructions .ROUTE .COMPLEX RF: 0 Discharge Orders: Discharge Order (Routine); Ordered 06/06/20 Ordered By: Gianfranco Mccormick Referrals: Irene Valladares [Primary Care Provider] - Discharge Diet: Usual diet Discharge Activity: Increase activity as tolerated Activity Restrictions/Additional Instructions: Start with blood thinner as recommended on the prescription. Follow-up with your primary care doctor in the next 3 days return to the ER if you have worsening symptoms. Discharge Date/Time: 06/06/20 15:55 Coding Level of Care Code ED Beading Machine Operator for Karl Fwd Exam Comprehensive
[2020-06-06 10:34] LABS: ABG PCO2 37.5 mmHg (35-45); ABG PH Result 7.44 (7.35-7.45); Alveolar-Arterial Oxygen Gradi 3.2 mmHg (5-10); Arterial Blood Gas Hematocrit 47.5 % (37-47); Base Excess ABG 1.2 mmol/L (-2.0-2.0); Blood Gas Allen Test Pos; Blood Gas Operator Identificat glc; Blood Gas Sample Site Radial, left; Blood Gas Sample Type Arterial; Carboxyhemoglobin 1.2 %THgb (0.4-20.1); HCO3 ABG 25.2 mmol/L (22-26); HGB O2 Sat 95.4 % (95-100); Ionized Calcium Level - ABG 1.3 mmol/L (1.1-1.4); Methemoglobin 0.6 % (0.4-1.5); Oxygen Device ROOM AIR; Oxygen Saturation ABG 97.1; PO2 ABG 78.8 mmHg (80.0-100.0); Potassium Level - ABG 3.9 mmol/L (3.5-5.0); Total Hemoglobin 15.5 g/dL (12-16)
[2020-06-06 11:19] LABS: Basophils % 0.2 %; Eosinophils # 0.1 10^3/uL (0.0-0.8); Hematocrit 45.6 % (37.0-47.0); Hemoglobin 14.8 g/dL (11.5-15.3); Lymphocytes # 2.6 10^3/uL (0.8-4.8); Lymphocytes % 21.3 %; Mean Corpuscular HGB Conc 32.5 g/dL (30.0-36.0); Mean Corpuscular Hemoglobin 29.8 pg (28.0-34.0); Mean Corpuscular Volume 91.9 fL (81-99); Mean Platelet Volume 11.8 fL (7.4-10.4); Monocytes # 1.4 10^3/uL (0.2-0.9); Monocytes % 11.6 %; Neutrophils # 7.86 10^3/uL (1.8-7.7); Neutrophils % 64.3 %; Nucleated Red Blood Cells % 0 %; Red Blood Count 4.96 10^6/uL (4.1-5.3); Red Cell Distribution Width 12.5 % (12.1-15.1); White Blood Count 12.2 10^3/uL (4.0-10.0)
[2020-06-06 11:37] VITALS: BP 139/65; PULSE 62; RESP 21; O2SAT 97
[2020-06-06 11:37] LABS: Alanine Aminotransferase 25 U/L (0-33); Albumin Level 3.5 g/dL (3.5-5.2); Alkaline Phosphatase 74 IU/L (35-105); Aspartate Amino Transferase 11 U/L (0-32); Blood Urea Nitrogen 26 mg/dL (8-23); Calcium 10.1 mg/dL (8.5-10.5); Carbon Dioxide 24 mmol/L (22-29); Chloride 103 mmol/L (98-107); Globulin 2.7 g/dL (1.3-4.6); Glucose 229 mg/dL (65-115); Osmolality Calculated 294 mOsm/kg (285-295); Sodium 136 mmol/L (136-145); Total Bilirubin 0.5 mg/dL (0.15-1.2); Total Protein 6.2 g/dL (6.6-8.7)
[2020-06-06 11:38] LABS: D Dimer 5.61 ug/mIFEU (0-0.59); Troponin(5th) Baseline 18 ng/L (0-10)
--- NOTE | 2020-06-06 11:55 | CT_ITS ---
WS: [id number] CT CHEST ANGIOGRAPHY WITH REFORMATS HISTORY: elevated d dimer TECHNIQUE: Contiguous axial images are obtained through the chest during arterial injection of intrav enous contrast. Images are reconstructed to evaluate the pulmonary arteries. MIP imaging also reviewe d. All CT scans at [facility] use at least one of these dose optimization techniques: aut omated exposure control; mA and/or kV adjustment per patient size (includes targeted exams where dose is matched to clinical indication); or iterative reconstruction. CONTRAST: Omnipaque 350; 95 mL IV. DLP: 698.43 mGy.cm COMPARISON: None available. Adequate opacification of the pulmonary arteries. Centrally there is no pulmonary embolism. There is significant pulmonary embolic burden in the RIGHT middle and RIGHT lower lobe pulmonary arteries. Yary pect there are very small emboli in the subsegmental branches of the LEFT upper and lower lobes. Mild enlargement of pulmonary artery. Mild atherosclerosis aorta. No RIGHT heart strain. Heart chambers a re slightly enlarged. No pericardial or pleural effusion. Study is limited by motion but there is mild diffuse groundglass attenuation. No mediastinal or hilar adenopathy. Bilateral substernal thyroid. Thyroid is enlarged and lobular. This can be further evaluated by ultra sound if necessary. Small hiatal hernia. Mild hepatic steatosis. CT/CT angio chest PE protcl [id number] IMPRESSION: 1. Moderate pulmonary embolic burden, most significant in the RIGHT middle and RIGHT lower lobe pulmonary arteries. 2. Mild diffuse haziness over both lungs consistent with a diagnosis of Covid 19. 3. Mild cardiomegaly. 4. Substernal thyromegaly. Consider thyroid ultrasound evaluation on an outpat ient basis. Notified Gianfranco Mccormick DO at 06/06/2020 3:14 PM.
[2020-06-06 12:02] LABS: Platelet Count 160 10^3/cmm (130-400); Slide Review Slide Review Perform
[2020-06-06 12:54] LABS: Specific Gravity, Urine 1.025 (1.005-1.030); Urine Appearance SL Hazy (CLEAR); Urine Color Dark Yellow (Yellow); pH Urine 5 (5-7)
[2020-06-06 12:55] LABS: Add Urine Microscopic? YES; Bilirubin Urine 1+ (Negative); Blood Urine 2+ (Negative); Glucose Urine UA Norm (Normal); Ketones Urine 1+ (Negative); Leukocyte Esterase Urine 1+ (Negative); Nitrate Urine Negative (Negative); Protein Urine Trace (Negative); Urobilinogen Urine Norm (Negative)
[2020-06-06 13:00] LABS: Bacteria Urine 1+ /hpf
[2020-06-06 13:01] LABS: Add Urine Culture? No; Amorphous Sediment Urine 1+ /hpf; Mucus Urine TRACE /hpf
[2020-06-06] MEDS: acetaminophen 500 mg Tablet 1000 MG PO (13:56)
[2020-06-06] MEDS: LORazepam 2 mg/mL INJ 1 mL 1 MG IVP (13:57)
[2020-06-06 14:43] LABS: Troponin 5 2HR 15.94 ng/L (0-10)
[2020-06-06 14:45] LABS: Troponin 5 2HR Delta -2.06 ABS# (0-10)
--- NOTE | 2020-06-06 14:59 | PC.NURSE ---
pt to CT by stretcher with tech
[2020-06-06] MEDS: iohexol 350 mg/mL 100 mL Btl IV (15:02)
[2020-06-06 15:15] VITALS: BP 127/63; PULSE 67; RESP 18; O2SAT 94
--- NOTE | 2020-06-06 15:16 | PC.NURSE ---
PT stated she is pain free after the Tylenol. Pt stated feeling better since the crackers and milk Reviewed with pt waiting for CT results. SUNNY Resendiz notified , pt is back in the room, waiting for results.
[2020-06-06 16:01] VITALS: BP 133/57; PULSE 82; RESP 24; TEMP 36.6; O2SAT 94
== END 2020-06-06 15:55 | disposition home or self-care (01) ==
PROVIDERS: Emergency Provider Family Medicine; PCP Internal Medicine
DX: U07.1 COVID-19 (principal); I26.99 Other pulmonary embolism without acute cor pulmonale
CPT/HCPCS: 12345; 36415; 36600; 71045; 71275; 80051; 80053; 81001; 82810; 83986; 84484; 85025; 85378; 93005; 96374; 96375; 99283; 99284; 99291; J2060; Q9967

== ENCOUNTER 2021-11-21 13:34 | Outpatient (CLI) | payer MEDICARE, MEDICAID, SELFPAY ==
--- NOTE | 2021-11-21 13:41 | XR_ITS ---
WS: [id number] DEXA (DUAL ENERGY X-RAY ABSORPTIOMETRY) Bone mineral density was performed using a Saisei machine. HISTORY: POST MENOPAUSAL COMPARISON: None available. Lumbar spine BMD (L1-L4): 1.486 g/cm2 T score: 2.6 Z score: 3.0 Total hip BMD: Left: 0.977 g/cm2. T score: -0.2 Z score: 0.2 Right: 0.959 g/cm2. T score: -0.4 Z score: 0.0 10 year probability of a major osteoporotic fracture is 11%. XR/XR DEXA peripheral [id number] IMPRESSION: NORMAL BONE MINERAL DENSITY based upon the WHO classification for females.
== END 2021-11-21 13:35 | disposition home or self-care (01) ==
LOC: RAD 13:36
PROVIDERS: PCP Internal Medicine; Visit Provider Nurse Practitioner
DX: Z78.0 Asymptomatic menopausal state (principal)
CPT/HCPCS: 77081

== ENCOUNTER 2022-01-11 08:23 | Outpatient (CLI) | payer MEDICARE, MEDICAID, SELFPAY ==
--- NOTE | 2022-01-11 08:42 | MM_ITS ---
WS: [id number] LEFT 3D TOMOSYNTHESIS DIGITAL MAMMOGRAPHY WITH CAD CLINICAL INFORMATION: SCREENING RIGHT nipple discharge. COMPARISON: September 12, 2020 TECHNIQUE: 3 views of the left breast were obtained. FINDINGS: Scattered fibroglandular densities of the left breast. Progressed ovoid nodule upper LEFT breast huong uring 7.5 mm best seen on the MLO view. This appears to be at the 12:00 position or upper outer quadr ant on the cc view. Recommend spot compression diagnostic mammography and ultrasound for further brendon luation. RIGHT breast is unremarkable and unchanged. MM/[place] [id number] IMPRESSION: BI-RADS: 0-Incomplete: Need additional imaging evaluation FOLLOW UP: Need Additional Imaging Recommend LEFT breast spot compression diagnostic mammography and ultrasound fo r further evaluation. Ultrasound focused at the 12:00 position and covering the upper-outer quadrant.
== END 2022-01-11 08:24 | disposition home or self-care (01) ==
LOC: RAD 08:26
PROVIDERS: PCP Internal Medicine; Visit Provider Family Medicine
DX: Z12.31 Encounter for screening mammogram for malignant neoplasm of breast (principal)
CPT/HCPCS: 77063; 77067

== ENCOUNTER 2022-02-09 08:01 | Outpatient (CLI) | payer MEDICARE, MEDICAID, SELFPAY ==
--- NOTE | 2022-02-09 08:10 | MM_ITS ---
WS: [id number] LEFT 3D TOMOSYNTHESIS DIGITAL MAMMOGRAPHY WITH CAD CLINICAL INFORMATION: ABNORMAL MAMMO COMPARISON: January 11, 2022 TECHNIQUE: 3 views of the left breast were obtained. FINDINGS: Scattered fibroglandular densities of the left breast. Previously described ovoid nodule upper outer LEFT breast measuring 7 mm near the 12:00 position not as well-defined today and partially compresses out on the spot compression views. Ultrasound is pending. ULTRASOUND BREAST LEFT TECHNIQUE: Ultrasound left breast focused area of concern. CLINICAL INFORMATION: ABNORMAL MAMMO COMPARISON: None. FINDINGS: Ultrasound LEFT breast at the 12 to 3:00 position. A few underlying incidental anechoic cyst with thr ough transmission. Hypoechoic lesion near the areola 1:00 measuring 3.3 x 5.0 mm is not definitely cystic and recommend further evaluation with ultrasound-guided biopsy/aspiration. This is taller than wide and demonstrat es a small amount of shadowing. No significant through transmission. MM/[place] [id number] IMPRESSION: BI-RADS: 4-Suspicious Finding-Biopsy Should Be Considered FOLLOW UP: US Guided Biopsy Recommended Recommend ultrasound-guided biopsy/aspiration of the hypoechoic lesion at the 1 :00 position
== END 2022-02-09 08:02 | disposition home or self-care (01) ==
PROVIDERS: PCP Internal Medicine; Visit Provider Family Medicine
DX: N60.02 Solitary cyst of left breast (principal); R92.8 Other abnormal and inconclusive findings on diagnostic imaging of breast
CPT/HCPCS: 76642; 77061

== ENCOUNTER 2022-07-18 23:31 | Observation (INO) | payer MEDICARE, MEDICAID, SELFPAY ==
[2022-07-18 23:32] VITALS: BMI 46.9
--- NOTE | 2022-07-18 23:36 | XRR_ITS ---
PROCEDURE INFORMATION: Exam: XR Chest Exam date and time: 07/18/2022 11:41 PM Age: 66 years old Clinical indication: Patient HX: C/O cough TECHNIQUE: Imaging protocol: Radiologic exam of the chest. Views: 1 view. COMPARISON: CR XR chest 1V portable [id number] 06/06/2020 11:08 AM FINDINGS: Lungs: Calcified granuloma noted at the right lung apex. No consolidation. Pleural spaces: Unremarkable. No pleural effusion. No pneumothorax. Heart/Mediastinum: Unremarkable. No cardiomegaly. Bones/joints: Unremarkable. XR/XR chest 1V portable [id number] IMPRESSION: No acute findings.
[2022-07-18 23:39] VITALS: BP 147/56; PULSE 78; RESP 18; TEMP 37.6; O2SAT 90
--- NOTE | 2022-07-18 23:43 | ED_ITS ---
HPI - SOB/Dyspnea General: Chief Complaint: Shortness of Breath/Dyspnea Stated Complaint: COUGH Time Seen by Provider: 07/18/22 23:36 History of Present Illness: HPI Narrative: 66-year-old female comes in today with complaints of illness x4 days. Patient reports 1 episode of emesis this morning. Patient reports that she had some confusion today which concerned the family. Patient continued to have symptoms tonight which they have been brought her to the emergency room by EMS. Patient does have a history of diabetes and hypertension. Associated symptoms: Reports fever(s), nausea and vomiting (X1); Deny chest pain Review of Systems Const: Reports: fever(s) ENMT: Denies: throat pain Card: Denies: chest pain Resp: Reports: dyspnea and non-productive cough GI: Reports: nausea and vomiting (X1) : Denies: difficulty voiding Neuro: Reports: confusion PFSH ED PFSH: Social History Smoking and tobacco status: never smoked Alcohol intake: never Physical Exam Const: COMMON NORMALS: alert HENMT: COMMON NORMALS: normocephalic HEAD & SCALP: normocephalic Neck/C-Spine: COMMON NORMALS: full ROM Resp: EFFORT & INSPECTION: Yes able to speak in complete sentences AUSCULTATION: diminished lung sounds (Bilateral bases) Cardio: COMMON NORMALS: regular rate and regular rhythm RATE: regular rate RHYTHM: regular rhythm Extremity: COMMON NORMALS: full ROM Neuro: SENSORIUM/ORIENTATION: Yes alert Skin: COMMON NORMALS: turgor normal GENERAL SKIN EXAM: turgor normal Course Vital Signs: Vital signs: Vital Signs Temperature 99.6 F 07/18/22 23:39 Pulse Rate 86 07/19/22 00:40 Respiratory Rate 14 07/19/22 00:40 Blood Pressure 147/56 07/18/22 23:39 Pulse Oximetry 92 07/19/22 00:40 Oxygen Delivery Me thod 07/19/22 00:40 Oxygen Flow Rate 2 07/19/22 00:40 MDM - SOB/Dyspnea Medical Decision Making 66-year-old female comes in tonight with complaints of cough and congestion, and fever. On exam patient has decreased breath sounds in the bases. Abdomen soft nontender. Patient is alert and oriented. No edema is noted in the extremities. Vital signs are normal except for some hypoxia. Differential diagnosis includes pneumonia, viral syndrome, COVID-19 versus influenza a, urinary tract infection. Chest x-ray reported no acute abnormalities. CBC was unremarkable. CMP noted a blood glucose of 197 and creatinine 1.1. Influenza was negative and COVID 19 test antigen was negative. Urinalysis showed some significant white blood cells. Patient was tried without oxygen but her O2 sats dropped to 85. Reviewed exam with Dr. Pederson who recommended follow-up with hospitalist for admission. Patient will be admitted to hospitalist for hypoxia, upper respiratory infection, UTI. Patient was given 500 of Levaquin p.o. Patient was maintained on oxygen. Reviewed exam with Dr. Law who agreed to admission. Lab Data 07/18/22 23:52 07/18/22 23:52 Labs/Radiology: Radiology Impressions Chest X-Ray 07/18/22 23:36 IMPRESSION: No acute findings. Laboratory Results WBC 7.7 10^3/uL (4.0-10.0) 07/18/22 23:52 RBC 4.38 10^6/uL (4.1-5.3) 07/18/22 23:52 Hgb 13.4 g/dL (11.5-15.3) 07/18/22 23:52 Hct 42.2 % (37.0-47.0) 07/18/22 23:52 MCV 96.3 fl (81-99) 07/18/22 23:52 MCH 30.6 pg (28.0-34.0) 07/18/22 23:52 MCHC 31.8 g/dL (30.0-36.0) 07/18/22 23:52 RDW 12.6 % (12.1-15.1) 07/18/22 23:52 Plt Count 160 10^3/cmm (130-400) 07/18/22 23:52 MPV 10.5 fL (7.4-10.4) H 07/18/22 23:52 Neut % (Auto) 74.6 % 07/18/22 23:52 Lymph % (Auto) 11.9 % 07/18/22 23:52 [place] % (Auto) 12.3 % 07/18/22 23:52 Eos % (Auto) 0.3 % 12/07/22 23:52 Baso % (Auto) 0.5 % 07/18/22 23:52 Neut # (Auto) 5.78 10^3/uL (1.8-7.7) 07/18/22 23:52 Lymph # (Auto) 0.9 10^3/uL (0.8-4.8) 07/18/22 23:52 [place] # (Auto) 1.0 10^3/uL (0.2-0.9) H 07/18/22 23:52 Eos # (Auto) 0.0 10^3/uL (0.0-0.8) 07/18/22 23:52 Baso # (Auto) 0.0 10^3/uL (0.0-0.1) 07/18/22 23:52 Nucleated RBC % (auto) 0 % 07/18/22 23:52 Nucleated RBCs # 0.0 /100WBC 07/18/22 23:52 Sodium 141 mmol/L (136-145) 07/18/22 23:52 Potassium 4.2 mmol/L (3.5-5.1) 07/18/22 23:52 Chloride 103 mmol/L (98-107) 07/18/22 23:52 Carbon Dioxide 29 mmol/L (22-29) 07/18/22 23:52 Anion Gap 13.2 (5-19) 07/18/22 23:52 BUN 18 mg/dL (8-23) 07/18/22 23:52 Creatinine 1.1 mg/dL (0.5-0.9) H 07/18/22 23:52 GFR Calculation 49.7 mL/min (90-130) L 07/18/22 23:52 Glucose 197 mg/dL (65-115) H 07/18/22 23:52 Calculated Osmolality 299 mOsm/kg (285-295) H 07/18/22 23:52 Calcium 10.0 mg/dL (8.5-10.5) 07/18/22 23:52 Total Bilirubin 0.4 mg/dL (0.15-1.2) 07/18/22 23:52 AST 21 U/L (0-32) 07/18/22 23:52 ALT 19 U/L (0-33) 07/18/22 23:52 Alkaline Phosphatase 71 U/L (35-105) 07/18/22 23:52 Total Protein 7.1 g/dL (6.6-8.7) 07/18/22 23:52 Albumin 3.9 g/dL (3.5-5.2) 07/18/22 23:52 Globulin 3.2 g/dL (1.3-4.6) 07/18/22 23:52 Urine Color Yellow (Yellow) 07/19/22 00:20 Urine Appearance Sl hazy (CLEAR) A 07/19/22 00:20 Urine pH 7 (5-7) 07/19/22 00:20 Ur Specific [place] 1.015 (1.005-1.030) 07/19/22 00:20 Urine Protein Neg (Negative) 07/19/22 00:20 Urine Glucose (UA) Norm (Normal) 07/19/22 00:20 Urine Ketones 1+ (Negative) H 07/19/22 00:20 Urine Blood 2+ (Negative) H 07/19/22 00:20 Urine Nitrate Negative (Negative) 07/19/22 00:20 Urine Bilirubin Neg (Negative) 07/19/22 00:20 Urine Urobilinogen 1 mg/dL (Negative) H 07/19/22 00:20 Ur Leukocyte Esterase 2+ (Negative) H 07/19/22 00:20 Urine RBC 5-10 /hpf (0-2) H 07/19/22 00:20 Urine WBC 25-40 /hpf (0-5) H 07/19/22 00:20 Ur Squamous Epith Cells 5-10 /hpf (0-5) H 07/19/22 00:20 Amorphous Sediment Not Reportable 07/19/22 00:20 Urine Bacteria 2+ /hpf (NONE) H 07/19/22 00:20 Influenza Type A Ag negative (Negative) 07/18/22 23:52 Influenza Type B Ag negative (Negative) 07/18/22 23:52 SARS-CoV-2 Ag (Rapid) negative (Negative) 07/18/22 23:52 Discharge Plan Discharge Patient Disposition: Admitted As Inpatient Clinical Impression: Hypoxia, Acute UTI (urinary tract infection) URI (upper respiratory infection) Qualifiers: URI type: unspecified URI Qualified Code(s): J06.9 - Acute upper respiratory infection, unspecified Condition: Stable Discharge Diet: Usual diet Discharge Activity: Increase activity as tolerated Coding Level of Care Code ED Balance Wheel Screw Hole Tapper for Chg Fwd Exam Detailed
[2022-07-18 23:59] LABS: Basophils % 0.5 %; Eosinophils % 0.3 %; Hematocrit 42.2 % (37.0-47.0); Hemoglobin 13.4 g/dL (11.5-15.3); Lymphocytes # 0.9 10^3/uL (0.8-4.8); Lymphocytes % 11.9 %; Mean Corpuscular HGB Conc 31.8 g/dL (30.0-36.0); Mean Corpuscular Hemoglobin 30.6 pg (28.0-34.0); Mean Corpuscular Volume 96.3 fl (81-99); Mean Platelet Volume 10.5 fL (7.4-10.4); Monocytes % 12.3 %; Neutrophils # 5.78 10^3/uL (1.8-7.7); Neutrophils % 74.6 %; Nucleated Red Blood Cells % 0 %; Platelet Count 160 10^3/cmm (130-400); Red Blood Count 4.38 10^6/uL (4.1-5.3); Red Cell Distribution Width 12.6 % (12.1-15.1); White Blood Count 7.7 10^3/uL (4.0-10.0)
[2022-07-19] VITALS (15 sets, daily range): BP systolic 107–146; BP diastolic 61–73; PULSE 72–90; RESP 14–24; TEMP 36.7–37.6; O2SAT 84–96
[2022-07-19] MEDS: ondansetron 2 mg/ML SDV 2 mL 4 MG IVP (00:05)
[2022-07-19] MEDS: sodium chloride 0.9% 500 ML 999 ML IV (00:05)
[2022-07-19 00:16] LABS: Influenza A by IFA negative (Negative); Influenza B by IFA negative (Negative); SARS Covid-2 Antigen negative (Negative)
[2022-07-19 00:19] LABS: Alanine Aminotransferase 19 U/L (0-33); Albumin Level 3.9 g/dL (3.5-5.2); Alkaline Phosphatase 71 U/L (35-105); Anion Gap 13.2 (5-19); Aspartate Amino Transferase 21 U/L (0-32); Blood Urea Nitrogen 18 mg/dL (8-23); Carbon Dioxide 29 mmol/L (22-29); Chloride 103 mmol/L (98-107); Globulin 3.2 g/dL (1.3-4.6); Glomerular Filtration Rate 49.7 mL/min (90-130); Glucose 197 mg/dL (65-115); Osmolality Calculated 299 mOsm/kg (285-295); Potassium 4.2 mmol/L (3.5-5.1); Sodium 141 mmol/L (136-145); Total Bilirubin 0.4 mg/dL (0.15-1.2); Total Protein 7.1 g/dL (6.6-8.7)
[2022-07-19] MEDS: ipratropium-albuterol 3 mL Neb INHALATION ×2 (00:39→08:12)
[2022-07-19 01:17] LABS: Urine Appearance SL Hazy (CLEAR); Urine Color Yellow (Yellow)
[2022-07-19 01:18] LABS: Add Urine Microscopic? YES; Bilirubin Urine Neg (Negative); Blood Urine 2+ (Negative); Glucose Urine UA Norm (Normal); Ketones Urine 1+ (Negative); Leukocyte Esterase Urine 2+ (Negative); Nitrate Urine Negative (Negative); Protein Urine Neg (Negative); Specific Gravity, Urine 1.015 (1.005-1.030); Urobilinogen Urine 1 mg/dL (Negative); WBC Urine 25-40 /hpf (0-5); pH Urine 7 (5-7)
[2022-07-19 01:19] LABS: Add Urine Culture? Yes; Bacteria Urine 2+ /hpf
[2022-07-19] MEDS: levoFLOXacin 500 mg Tablet PO (02:04)
--- NOTE | 2022-07-19 02:51 | P.HP_ITS ---
Providers/Chief Complaint Admitting Physician: Cooper Law MD Primary Care Provider: Irene Valladares Chief Complaint: COUGH History of Present Illness Celeste Rose is a 66 year old female who has a history of diabetes, hypertension, presented to the hospital with chief complaint of confusion and chest congestion. Patient stating that her symptoms started on Saturday, her symp toms were chest congestion, nasal congestion, nonproductive cough and 1 episode of emesis. Her symptoms gradually got worse and today she was not able to breathe without getting worked up that prompted her visit to the ER. She has not noticed any fever, chest pain, she is endorsing diarrhea which started today. Patient suffered from COVID-19 last year and then developed PE she has been taken off Eliquis In the ER she is requiring 2 L of oxygen I requested COVID PCR which came back positive for influenza A, abnormal UA however patient is awake and alert slightly lethargic and fatigued, mild BREANN D-dimer 1.1, in the ER she received levofloxacin and DuoNeb and IV fluids Review of Systems Const: Reports: chills, body aches and fatigue Eyes: Denies: change in vision ENMT: Denies: throat pain Card: Denies: chest pain Resp: Reports: dyspnea GI: Reports: nausea and diarrhea : Denies: flank pain Musc: Denies: neck pain Skin/Breast: Denies: rash Neuro: Denies: headache(s) Psych: Reports: anxiety Endo: Denies: polyuria Mario/Lymph: Denies: easy bruising All/Imm: Denies: urticaria Medications/Allergies Home Medications Medication Instructions Recorded Confirmed Last Taken Type fluoxetine 20 mg capsule 20 mg PO DAILY 11/02/19 06/06/20 06/05/20 History furosemide 40 mg tablet (Lasix) 40 mg PO DAILY 11/02/19 06/06/20 06/05/20 History losartan 50 mg tablet 50 mg PO DAILY 11/02/19 06/06/20 06/05/20 History rosuvastatin 10 mg tablet 10 mg PO DAILY 11/02/19 06/06/20 06/05/20 History acyclovir 400 mg tablet 400 mg PO BID 06/06/20 06/06/20 06/05/20 History apixaban 5 mg (74 tabs) tablets in See Rx Instructions PO .COMPLEX 06/06/20 Unknown Rx a dose pack (Eliquis DVT-PE Treat #74 ea 30D Start) calcium polycarbophil 625 mg 625 mg PO TID PRN unknown 06/06/20 06/06/20 06/05/20 History tablet (Fiber-Tabs) ergocalciferol (vitamin D2) 1,250 50,000 unit PO Q7D 06/06/20 06/06/20 Unknown History mcg (50,000 unit) capsule exenatide microspheres 2 mg/0.65 See Rx Instructions .Route .COMPLEX 06/06/20 06/06/20 Unknown History mL subcutaneous pen injector ([employer]) glyburide 5 mg tablet See Rx Instructions .Route .COMPLEX 06/06/20 06/06/20 Unknown History phenylephrine 5 1 cap PO BID PRN unknown 06/06/20 06/06/20 Unknown History mg-dextromethorphan 10 mg-acetaminophen 325 mg capsule (Farnaz-[place] Plus Sinus-Cough) levofloxacin 500 mg tablet 500 mg PO DAILY 5 days #5 tabs 07/19/22 Unknown Rx Allergies Allergy/AdvReac Type Severity Reaction Status Date / Time Penicillins Allergy High Fevers Verified 06/06/20 11:07 PFSH Acute PFSH: Medical History COPD (chronic obstructive pulmonary disease) COVID-19 Herpes Hyperlipidemia Hypertension Morbid obesity with BMI of 45.0-49.9, adult Primary osteoarthritis of right knee Pulmonary embolism COVID related Type 2 diabetes mellitus Surgical History (Updated 07/19/22 @ 04:11 by Cooper Law MD) History of appendectomy S/P partial hysterectomy Family History Denies family history of CAD (coronary artery disease) Social History Smoking and tobacco status: never smoked Alcohol intake: never Vitals/I&O/Wt Last Vital Signs Temp 98.0 F 07/19/22 02:33 Pulse 86 07/19/22 02:33 Resp 17 07/19/22 02:33 BP 110/67 07/19/22 02:33 Pulse Ox 94 07/19/22 02:33 O2 Del Method 07/19/22 02:33 O2 Flow Rate 2 07/19/22 02:33 07/18/22 07/18/22 07/19/22 14:59 22:59 06:59 Intake Total 500 / 500 Balance 500 / 500 Weight last 48 hrs Weight 132.931 kg Weight 127.913 kg Physical Exam Narrative: Morbidly obese female Nonpitting edema of legs Currently on 2 L No audible stridor or wheezing Nasal congestion Fatigued and lethargic Awake and alert Nonfocal neuro exam Pleasant and cooperative Laying supine Data 07/18/22 23:52 07/18/22 23:52 A&P Assessment and plan (1) Hypoxia: (2) URI (upper respiratory infection): Qualifiers: URI type: unspecified URI Qualified Code(s): J06.9 - Acute upper respiratory infection, unspecified (3) Acute UTI (urinary tract infection): (4) AMS (altered mental status): Plan Acute hypoxia related to influenza A Chest x-ray did not show pneumonia Trend vitals, check procalcitonin Add Tamiflu DuoNeb every 4 as needed UTI, acute metabolic encephalopathy related to UTI: Improving I will start her on ceftriaxone Generalized weakness and fatigue related to viral illness Diarrhea: 1 episode in the ER Morbidly obese, lymphedema, no acute exacerbation of her underlying CHF Patient should get sleep study done outpatient Full code Cardiac diet DVT prophylaxis Lovenox Attestations Medical Necessity Statement*: Anticipating discharge within 48 hours Time Spent in Patient Care: 40 Coding Level of Care Code Acute Release Of Information Clerk for Juliag Fwcarol Diagnoses Hypoxia R09.02 URI (upper respiratory infection) J06.9 URI type: unspecified URI Acute UTI (urinary tract infection) N39.0 AMS (altered mental status) R41.82
[2022-07-19] MEDS: enoxaparin 40 mg/0.4 mL Syringe SUBCUT (03:12)
[2022-07-19] MEDS: sodium chloride 0.9% 1,000 ML 75 ML IV (03:12)
[2022-07-19 03:28] LABS: Adenovirus Not Detected (NOT DETECT); Chlamydia Pneumoniae Not Detected (NOT DETECT); Coronavirus 229E,HKU1,NL63,OC4 Not Detected (NOT DETECT); Human Metapneumovirus Not Detected (NOT DETECT); Human Rhinovirus/Enterovirus Not Detected (NOT DETECT); Influenza A Detected (NOT DETECT); Influenza A H1 Not Detected (NOT DETECT); Influenza A H1-2009 Detected (NOT DETECT); Influenza A H3 Not Detected (NOT DETECT); Influenza B Not Detected (NOT DETECT); Mycoplasma Pneumoniae Not Detected (NOT DETECT); Parainfluenza Virus Type 1 Not Detected (NOT DETECT); Parainfluenza Virus Type 2 Not Detected (NOT DETECT); Parainfluenza Virus Type 3 Not Detected (NOT DETECT); Parainfluenza Virus Type 4 Not Detected (NOT DETECT); Respiratory Syncytial Virus A Not Detected (NOT DETECT); Respiratory Syncytial Virus B Not Detected (NOT DETECT); SARS-COV-2 Not Detected (NOT DETECT)
[2022-07-19 03:31] LABS: Influenza A Detected (NOT DETECT); Influenza A H1 Not Detected (NOT DETECT); Influenza A H1-2009 Detected (NOT DETECT); Influenza A H3 Not Detected (NOT DETECT); Influenza B Not Detected (NOT DETECT); Results from Genmark
[2022-07-19 04:05] LABS: D Dimer 1.17 ug/mIFEU (0-0.59)
[2022-07-19 04:16] LABS: Procalcitonin 0.09 ng/mL (0-0.5)
[2022-07-19 04:18] LABS: Estmated Average Glucose 160; Hemoglobin A1C 7.2 % (4.0-6.0)
[2022-07-19 04:31] LABS: Thyroid Stimulating Hormone 1.28 uIU/mL (0.27-4.20); Vitamin B12 500 pg/mL (232-1245)
[2022-07-19 04:35] LABS: ABG PCO2 49.4 mmHg (35-45); Arterial Blood Gas Hematocrit 38.4 % (37-47); Base Excess ABG 4.4 mmol/L (-2.0-2.0); Blood Gas Allen Test Pos; Blood Gas Operator Identificat BD; Blood Gas Sample Site Brachial, left; Blood Gas Sample Type Arterial; HCO3 ABG 30.2 mmol/L (22-26); Oxygen Device NC; PO2 ABG 65.1 mmHg (80.0-100.0)
[2022-07-19 06:33] LABS: Glucose Point of Care 205 mg/dL (70-110)
[2022-07-19] MEDS: sennosides-docusate Tablet 1 TAB PO (08:35)
[2022-07-19] MEDS: oseltamivir phosphate 75 mg Capsule PO ×2 (08:35→17:41)
[2022-07-19] MEDS: potassium chloride ER 20 mEq Tablet PO (08:35)
[2022-07-19] MEDS: cefTRIAXone 1,000 MG in sodium chloride 0.9% (plus) 50 ML 100 MG IV (08:36)
[2022-07-19] MEDS: insulin lispro 100 unit/1 mL SUBCUT ×3 (08:36→17:41)
[2022-07-19] MEDS: FUROsemide 40 mg Tablet PO (08:36)
[2022-07-19 11:08] LABS: Glucose Point of Care 199 mg/dL (70-110)
--- NOTE | 2022-07-19 12:49 | P.PN_ITS ---
Subjective Subjective: Ms. Rose was seen and examined this morning, continue to complain of significant cough shortness of breath, generalized body pain.Has been afebrile overnight. Medications: Medication Review Details: Generic Name Dose Route Start Last Admin Trade Name Harjinder PRN Reason Stop Dose Admin Albuterol/Ipratrop ium 3 ml 07/19/22 03:05 07/19/22 08:12 Ipratropium-Albu terol 3 Ml Neb INHALATION 3 ml Q6H PRN Administration SHORTNESS OF ELIJAH TH Enoxaparin Sodium 40 mg 07/19/22 04:15 07/19/22 05:14 Enoxaparin 40 Mg /0.4 Ml Syringe SUBCUT Not Given Q24H ZOILA Furosemide 40 mg 07/19/22 08:00 07/19/22 08:36 Furosemide 40 Mg Tablet PO 40 mg DAILY@0800 ZOILA Administration Ceftriaxone Sodium 1,000 mg/ 50 mls @ 100 mls/ hr 07/19/22 09:00 07/19/22 09:49 Sodium Chloride IV Infused DAILY ZOILA Infusion Protocol Insulin Human Lisp ro 0 unit 07/19/22 08:00 07/19/22 12:25 Insulin Lispro 1 00 Unit/1 Ml SUBCUT 6 unit TIDWM ZOILA Administration Protocol Oseltamivir Phosph ate 75 mg 07/19/22 09:00 07/19/22 08:35 Oseltamivir Phos phate 75 Mg Capsul e PO 75 mg BID ZOILA Administration Potassium Chloride 20 meq 07/19/22 09:00 07/19/22 08:35 Potassium Chlori de Er 20 Meq Table t PO 20 meq DAILY ZOILA Administration Senna/Docusate Sod ium 1 tab 07/19/22 09:00 07/19/22 08:35 Sennosides-Docus ate Tablet PO 1 tab DAILY ZOILA Administration Vitals/I&O/Wt Last Vital Signs Temp 99.0 F 07/19/22 11:36 Pulse 72 07/19/22 11:36 Resp 24 H 07/19/22 11:36 BP 115/66 07/19/22 11:36 Pulse Ox 93 07/19/22 11:36 O2 Del Method 07/19/22 11:36 O2 Flow Rate 1 07/19/22 11:36 07/18/22 07/19/22 07/19/22 22:59 06:59 14:59 Intake Total 701.25 / 701.25 1208.75 / 1208.75 Balance 701.25 / 701.25 1208.75 / 1208.75 Weight last 48 hrs Weight 132.931 kg Weight 132.931 kg Weight 127.913 kg Physical Exam Resp: EFFORT & INSPECTION: Yes symmetric chest movement OTHER: Diminished air entry bilaterally Cardio: COMMON NORMALS: regular rate, regular rhythm, S1 normal heart sound present, S2 normal heart sound present, No gallops present (Cardio), No murmurs present (Cardio), No rub (Cardio) and Peripheral pulses 2+ throughout RATE: regular rate RHYTHM: regular rhythm HEART SOUNDS: S1 normal heart sound present and S2 normal heart sound present PERIPHERAL PULSES: Peripheral pulses 2+ throughout GI: COMMON NORMALS: Normal to inspection, nondistended, normoactive bowel sounds present, Soft to palpation, non-tender, No hepatosplenomegaly present and no masses AUSCULTATION: Yes normoactive bowel sounds PALPATION: Yes Soft to palpation and Yes No hepatosplenomegaly present RECTAL EXAM: deferred Extremity: COMMON NORMALS: no clubbing, cyanosis or edema and no pedal edema Data 07/18/22 23:52 07/18/22 23:52 A&P Assessment and plan (1) Hypoxia: (2) URI (upper respiratory infection): Qualifiers: URI type: unspecified URI Qualified Code(s): J06.9 - Acute upper respiratory infection, unspecified (3) Acute UTI (urinary tract infection): (4) AMS (altered mental status): Plan 66-year-old female with past medical history of pretension diabetes chronic lymphedema, COPD, morbid obesity, was brought in with chief complaint of , confusion, shortness of breath, cough, nasal congestion, generalized weakness, generalized body pain, emesis 1 episode, started this Saturday. Currently she is being managed for: Assessment: Acute metabolic encephalopathy secondary to UTI and influenza Acute hypoxia secondary to influenza History of hypertension History of diabetes History of COPD Morbid obesity Generalized weakness and fatigue Plan: X-ray chest: No acute findings Procalcitonin:0.09 D-dimer 1.17 HbA1c 7.2 Follow urine culture Continue Tamiflu, antitussives, DuoNebs Continue ceftriaxone Continue sliding scale insulin, monitor fingerstick glucose Continue Lasix 40 p.o. daily Full code Cardiac diet DVT prophylaxis Lovenox Attestations Medical Necessity Statement*: Patient is to be in hospital management of influenza generalized weakness, shortness of breath cough, Coding Level of Care Code Acute Strategic Marketing Leader for Chg Fwd Exam Expanded Problem Focused Diagnoses Hypoxia R09.02 URI (upper respiratory infection) J06.9 URI type: unspecified URI Acute UTI (urinary tract infection) N39.0 AMS (altered mental status) R41.82
[2022-07-19] MEDS: benzonatate 100 mg Capsule 200 MG PO ×2 (16:26→20:35)
[2022-07-19 17:30] LABS: Glucose Point of Care 181 mg/dL (70-110)
[2022-07-19 20:59] LABS: Glucose Point of Care 164 mg/dL (70-110)
[2022-07-20] VITALS (7 sets, daily range): BP systolic 118–152; BP diastolic 63–75; PULSE 64–74; RESP 15–22; TEMP 36.7–37.4; O2SAT 89–95
[2022-07-20 03:09] LABS: Basophils % 0.3 %; Hematocrit 39.5 % (37.0-47.0); Hemoglobin 12.5 g/dL (11.5-15.3); Lymphocytes # 1.1 10^3/uL (0.8-4.8); Lymphocytes % 18.5 %; Mean Corpuscular HGB Conc 31.6 g/dL (30.0-36.0); Mean Corpuscular Hemoglobin 30.9 pg (28.0-34.0); Mean Corpuscular Volume 97.5 fl (81-99); Mean Platelet Volume 10.6 fL (7.4-10.4); Monocytes # 1.1 10^3/uL (0.2-0.9); Monocytes % 18.2 %; Neutrophils % 62.5 %; Nucleated Red Blood Cells % 0 %; Platelet Count 146 10^3/cmm (130-400); Red Blood Count 4.05 10^6/uL (4.1-5.3); Red Cell Distribution Width 12.9 % (12.1-15.1); White Blood Count 5.8 10^3/uL (4.0-10.0)
[2022-07-20 03:47] LABS: Anion Gap 13.2 (5-19); Blood Urea Nitrogen 19 mg/dL (8-23); Calcium 9.4 mg/dL (8.5-10.5); Carbon Dioxide 30 mmol/L (22-29); Chloride 101 mmol/L (98-107); Glomerular Filtration Rate 49.7 mL/min (90-130); Glucose 179 mg/dL (65-115); NT Pro B Type Natriuretic Pept 462 pg/mL (0-125); Osmolality Calculated 297 mOsm/kg (285-295); Potassium 4.2 mmol/L (3.5-5.1); Sodium 140 mmol/L (136-145)
[2022-07-20] MEDS: enoxaparin 40 mg/0.4 mL Syringe SUBCUT (04:57)
[2022-07-20 07:05] LABS: Glucose Point of Care 172 mg/dL (70-110)
[2022-07-20] MEDS: FUROsemide 40 mg Tablet PO (08:56)
[2022-07-20] MEDS: benzonatate 100 mg Capsule 200 MG PO (08:56)
[2022-07-20] MEDS: potassium chloride ER 20 mEq Tablet PO (08:56)
[2022-07-20] MEDS: sennosides-docusate Tablet 1 TAB PO (08:56)
[2022-07-20] MEDS: oseltamivir phosphate 75 mg Capsule PO (08:56)
[2022-07-20] MEDS: cefTRIAXone 1,000 MG in sodium chloride 0.9% (plus) 50 ML 100 MG IV (08:57)
[2022-07-20] MEDS: insulin lispro 100 unit/1 mL SUBCUT ×2 (08:57→11:49)
--- NOTE | 2022-07-20 10:04 | PM.DCS ---
Discharge Providers Date of Admission: 07/19/22 01:37 Date of Discharge: July 20, 2022 Attending Provider at Admission: Cooper Law MD Attending Provider at Discharge: Michael June MD Primary Care Provider: Irene Valladares Diagnoses at Discharge Discharge Diagnosis (1) Hypoxia: Status: Acute (2) URI (upper respiratory infection): Status: Acute Qualifiers: URI type: unspecified URI Qualified Code(s): J06.9 - Acute upper respiratory infection, unspecified (3) Acute UTI (urinary tract infection): Status: Acute (4) AMS (altered mental status): Status: Acute Reason for Visit Reason for Visit: COUGH Hospital Course Hospital Course 66-year-old female with past medical history of pretension diabetes chronic lymphedema, COPD, morbid obesity, was brought in with chief complaint of , confusion, shortness of breath, cough, nasal congestion, generalized weakness, generalized body pain, emesis 1 episode, started this Saturday.She was admitted for the management of acute metabolic encephalopathy secondary to UTI and Influenza, and acute hypoxia secondary to influenza, she was kept on Tamiflu, nebs, antitussives, ceftriaxone for UTI, supplemental oxygen as needed, to which she responded well, at the time of discharge she was alert awake oriented x3, encephalopathy has completely resolved, she was saturating well on room air did not qualify for home oxygen, she was discharged to complete the Tamiflu course, as well as on p.o. levofloxacin to complete the course of UTI.Responded well to above medical management and was discharged stable condition to home. She will continue to follow PCP as outpatient. Physical Exam Resp: EFFORT & INSPECTION: Yes symmetric chest movement OTHER: Clear to auscultation bilaterally Cardio: COMMON NORMALS: regular rate, regular rhythm, S1 normal heart sound present, S2 normal heart sound present, No gallops present (Cardio), No murmurs present (Cardio), No rub (Cardio) and Peripheral pulses 2+ throughout RATE: regular rate RHYTHM: regular rhythm HEART SOUNDS: S1 normal heart sound present and S2 normal heart sound present PERIPHERAL PULSES: Peripheral pulses 2+ throughout GI: COMMON NORMALS: Normal to inspection, nondistended, normoactive bowel sounds present, Soft to palpation, non-tender, No hepatosplenomegaly present and no masses AUSCULTATION: Yes normoactive bowel sounds PALPATION: Yes Soft to palpation and Yes No hepatosplenomegaly present RECTAL EXAM: deferred Extremity: NARRATIVE EXTREMITY EXAM: Chronic lymphedema in bilateral lower extremity Discharge Data Studies Completed and Pending Completed Studies During Hospitalization Category Date Time Status XR chest 1V portable 12800 Stat Exams 07/18/22 23:36 Completed Pending at discharge Category Date Time Status BMP [Basic Metabolic Panel] AM LABS Lab 07/21/22 04:00 Ordered BMP [Basic Metabolic Panel] AM LABS Lab 07/22/22 04:00 Ordered CBC Auto Diff [Complete Blood Count w/Auto] AM LABS Lab 07/21/22 04:00 Ordered CBC Auto Diff [Complete Blood Count w/Auto] AM LABS Lab 07/22/22 04:00 Ordered Urine Culture Stat Lab 07/19/22 00:20 Received Radiology Impressions Chest X-Ray 07/18/22 23:36 IMPRESSION: No acute findings. Laboratory Results WBC 5.8 10^3/uL (4.0-10.0) 07/20/22 02:43 RBC 4.05 10^6/uL (4.1-5.3) L 07/20/22 02:43 Hgb 12.5 g/dL (11.5-15.3) 07/20/22 02:43 Hct 39.5 % (37.0-47.0) 07/20/22 02:43 MCV 97.5 fl (81-99) 07/20/22 02:43 MCH 30.9 pg (28.0-34.0) 07/20/22 02:43 MCHC 31.6 g/dL (30.0-36.0) 07/20/22 02:43 RDW 12.9 % (12.1-15.1) 07/20/22 02:43 Plt Count 146 10^3/cmm (130-400) 07/20/22 02:43 MPV 10.6 fL (7.4-10.4) H 07/20/22 02:43 Neut % (Auto) 62.5 % 07/20/22 02:43 Lymph % (Auto) 18.5 % 07/20/22 02:43 [place] % (Auto) 18.2 % 07/20/22 02:43 Eos % (Auto) 0.0 % 07/20/22 02:43 Baso % (Auto) 0.3 % 07/20/22 02:43 Neut # (Auto) 3.60 10^3/uL (1.8-7.7) 07/20/22 02:43 Lymph # (Auto) 1.1 10^3/uL (0.8-4.8) 07/20/22 02:43 [place] # (Auto) 1.1 10^3/uL (0.2-0.9) H 07/20/22 02:43 Eos # (Auto) 0.0 10^3/uL (0.0-0.8) 07/20/22 02:43 Baso # (Auto) 0.0 10^3/uL (0.0-0.1) 07/20/22 02:43 Nucleated RBC % (auto) 0 % 07/20/22 02:43 Nucleated RBCs # 0.0 /100WBC 07/20/22 02:43 D-Dimer 1.17 ug/mIFEU (0-0.59) H 07/19/22 03:26 Specimen Type Arterial 07/19/22 04:30 Sample Site Brachial, left 07/19/22 04:30 ABG pH 7.40 (7.35-7.45) 07/19/22 04:30 ABG pCO2 49.4 mmHg (35-45) H 07/19/22 04:30 ABG pO2 65.1 mmHg (80.0-100.0) L 07/19/22 04:30 ABG HCO3 30.2 mmol/L (22-26) H 07/19/22 04:30 ABG Base Excess 4.4 mmol/L (-2.0-2.0) H 07/19/22 04:30 Jean Marie Test Pos 07/19/22 04:30 Hematocrit 38.4 % (37-47) 07/19/22 04:30 O2 Delivery Device Nc 07/19/22 04:30 O2 Liters/Min 2.0 % 07/19/22 04:30 FiO2 28.0 % 07/19/22 04:30 Dermatology Procedural Physician ID Bd 07/19/22 04:30 Sodium 140 mmol/L (136-145) 07/20/22 02:43 Potassium 4.2 mmol/L (3.5-5.1) 07/20/22 02:43 Chloride 101 mmol/L (98-107) 07/20/22 02:43 Carbon Dioxide 30 mmol/L (22-29) H 07/20/22 02:43 Anion Gap 13.2 (5-19) 07/20/22 02:43 BUN 19 mg/dL (8-23) 07/20/22 02:43 Creatinine 1.1 mg/dL (0.5-0.9) H 07/20/22 02:43 GFR Calculation 49.7 mL/min (90-130) L 07/20/22 02:43 Glucose 179 mg/dL (65-115) H 07/20/22 02:43 POC Glucose 172 mg/dL (70-110) H 07/20/22 06:40 Estimat Average Glucose 160 07/19/22 03:26 Hemoglobin A1c 7.2 % (4.0-6.0) H 07/19/22 03:26 Calculated Osmolality 297 mOsm/kg (285-295) H 07/20/22 02:43 Calcium 9.4 mg/dL (8.5-10.5) 07/20/22 02:43 Total Bilirubin 0.4 mg/dL (0.15-1.2) 07/18/22 23:52 AST 21 U/L (0-32) 07/18/22 23:52 ALT 19 U/L (0-33) 07/18/22 23:52 Alkaline Phosphatase 71 U/L (35-105) 07/18/22 23:52 NT-Pro-B Natriuret Pep 462 pg/mL (0-125) H 07/20/22 02:43 Total Protein 7.1 g/dL (6.6-8.7) 07/18/22 23:52 Albumin 3.9 g/dL (3.5-5.2) 07/18/22 23:52 Globulin 3.2 g/dL (1.3-4.6) 07/18/22 23:52 Vitamin B12 500 pg/mL (232-1245) 07/19/22 03:26 Procalcitonin 0.09 ng/mL (0-0.5) 07/19/22 03:26 TSH 1.28 uIU/mL (0.27-4.20) 07/19/22 03:26 Urine Color Yellow (Yellow) 07/19/22 00:20 Urine Appearance Sl hazy (CLEAR) A 07/19/22 00:20 Urine pH 7 (5-7) 07/19/22 00:20 Ur Specific [place] 1.015 (1.005-1.030) 07/19/22 00:20 Urine Protein Neg (Negative) 07/19/22 00:20 Urine Glucose (UA) Norm (Normal) 07/19/22 00:20 Urine Ketones 1+ (Negative) H 07/19/22 00:20 Urine Blood 2+ (Negative) H 07/19/22 00:20 Urine Nitrate Negative (Negative) 07/19/22 00:20 Urine Bilirubin Neg (Negative) 07/19/22 00:20 Urine Urobilinogen 1 mg/dL (Negative) H 07/19/22 00:20 Ur Leukocyte Esterase 2+ (Negative) H 07/19/22 00:20 Urine RBC 5-10 /hpf (0-2) H 07/19/22 00:20 Urine WBC 25-40 /hpf (0-5) H 07/19/22 00:20 Ur Squamous Epith Cells 5-10 /hpf (0-5) H 07/19/22 00:20 Amorphous Sediment Not Reportable 07/19/22 00:20 Urine Bacteria 2+ /hpf (NONE) H 07/19/22 00:20 Nasal Influ A H1 2009 PCR Detected (NOT DETECT) A 07/19/22 03:30 Coronavirus 229E (PCR) Not detected (NOT DETECT) 07/19/22 01:39 Influenza A (H1) PCR Not detected (NOT DETECT) 07/19/22 03:30 Influenza A (H3) PCR Not detected (NOT DETECT) 07/19/22 03:30 Influenza Type A Ag negative (Negative) 07/18/22 23:52 Influenza Type A (PCR) Detected (NOT DETECT) A 07/19/22 03:30 Influenza Type B Ag negative (Negative) 07/18/22 23:52 Influenza Type B (PCR) Not detected (NOT DETECT) 07/19/22 03:30 SARS-CoV-2 (PCR) Not detected (NOT DETECT) 07/19/22 01:39 SARS-CoV-2 Ag (Rapid) negative (Negative) 07/18/22 23:52 Vitals Last Vital Signs Temp 98.4 F 07/20/22 07:40 Pulse 73 07/20/22 08:23 Resp 16 07/20/22 08:23 BP 118/63 07/20/22 07:40 Pulse Ox 94 07/20/22 08:23 O2 Del Method 07/20/22 08:23 O2 Flow Rate 2 07/20/22 08:23 Discharge Plan Discharge Patient Disposition: Home Condition: Stable Prescriptions: New acetaminophen 500 mg Tablet 500 mg PO Q4H PRN (Reason: fever) Qty: 14 0RF benzonatate 100 mg Capsule 200 mg PO TID 7 Days Qty: 42 0RF oseltamivir 75 mg Capsule 75 mg PO BID 4 Days Qty: 8 0RF levofloxacin 500 mg tablet 500 mg PO DAILY 5 Days Qty: 5 0RF Continued fluoxetine 20 mg capsule 20 mg PO DAILY furosemide [Lasix] 40 mg tablet 40 mg PO DAILY acyclovir 400 mg Tablet 400 mg PO BID calcium polycarbophil [Fiber-Tabs] 625 mg Tablet 625 mg PO TID PRN (Reason: unknown) ergocalciferol (vitamin D2) 1,250 mcg (50,000 unit) Capsule 50,000 unit PO Q7D Rx Instructions: takes on fridays [place] Plus Sinus-Cough 5-10-325 mg Capsule 1 cap PO BID PRN (Reason: unknown) Rx Instructions: pt states she has been taking alot of this lately Bydureon 2 mg/0.65 mL Pen Injector See Rx Instructions .ROUTE .COMPLEX Rx Instructions: 2 mg subcutaneously every 7 days Lantus U-100 Insulin 100 unit/mL Solution 30 unit SUBCUT BID gabapentin 300 mg Capsule 300 mg PO TID lovastatin 20 mg Tablet 20 mg PO DAILY losartan 100 mg Tablet 100 mg PO DAILY Januvia 100 mg Tablet 100 mg PO DAILY Discharge Orders: Discharge Order (Routine); Ordered 07/20/22 Ordered By: Michael June Referrals: Irene Valladares [Primary Care Provider] - 07/25/22 11:30 am (Please arrive to check-in by 11:15) Discharge Diet: Usual diet Discharge Activity: Increase activity as tolerated Patient Instructions: Benzonatate (By mouth), Acetaminophen (By mouth), Levofloxacin (By mouth), Oseltamivir (By mouth), Urinary Tract Infection in Women (ED), Influenza (DC), Opioid Safety Activity Restrictions/Additional Instructions: Encourage plenty of fluids. Use acetaminophen and ibuprofen for pain and fever. Give antibiotics daily for the next 5 days. Follow-up with primary care in 5 days for recheck. Return to ER for new concerns, or worsening symptoms. Discharge Attestations Time Spent in Discharge Care*: greater than 30 min Quality Metrics Clinical Quality Measures [ No reported AMI, CVA or VTE this stay] Coding Level of Care Code Acute g FW DC note Diagnoses Hypoxia R09.02 URI (upper respiratory infection) J06.9 URI type: unspecified URI Acute UTI (urinary tract infection) N39.0 AMS (altered mental status) R41.82
--- NOTE | 2022-07-20 11:13 | PC.CHAP ---
Pastoral Care Encounter/Spiritual Assessment Type of Contact [] Declined designer writer visit [] Patient/Family/Request visit [] Outpatient visit [] Follow-up visit [] Physician referral [] Code/Alert [x] Routine visit [] Staff referral [] Actively dying [] Patient sleeping [] Family support [] [] Out of room [] Palliative care [] [] Receiving care in room [] Pre-surgical visit [] Trauma [] Long length of stay [] ICU visit [] Other: Relational/Emotional Strength [] Patient feels connected with others/family/visitors/staff [] Distress [] Loneliness/isolation [] Abandonment Spirituality of Patient [x] Person of [place] [] Attends Lutheran of their [place] [x] Believes in Prayer [] Reads Bible or Rastafari materials [] There are Spiritual issues to be addressed Credit Specialist Interventions [x] Prayer [] Active listening [] Non-anxious presence [] Spiritual/emotional support [] Crisis/trauma care [] Spiritual counseling [] Bereavement support [] Provided bereavement packet [] Provided Bible/devotional materials [] Provided toy/stuffed animal, coloring book to patient or family member [] Provided Communion [] Anointing/[place] [] Salvation [] Completed spiritual assessment [] Other: Impact on Illness or Injury [] Angry [] Fearful [] Anxious [] Often cries [] Exhaustion [] Unable to work [] Unable to attend zoroastrian [] Unable to walk/stand [] Unable to read [] Unable to drive [] Unable to eat/drink [] Unable to sleep [] Unable to be with family [] Patient intubated [] Other: Summary Time spent with patient 5 min
[2022-07-20 11:24] LABS: Glucose Point of Care 187 mg/dL (70-110)
== END 2022-07-20 13:37 | disposition home or self-care (01) ==
LOC: ER 07-19 01:32 → MEDSURG 07-19 02:06
PROVIDERS: Admitting Provider Internal Medicine; Emergency Provider Nurse Practitioner Family; PCP Internal Medicine; Visit Provider Internal Medicine
DX: R09.02 Hypoxemia (principal); J06.9 Acute upper respiratory infection, unspecified; N39.0 Urinary tract infection, site not specified; R41.82 Altered mental status, unspecified; E11.9 Type 2 diabetes mellitus without complications; J44.9 Chronic obstructive pulmonary disease, unspecified; E66.01 Morbid (severe) obesity due to excess calories; Z99.81 Dependence on supplemental oxygen; E78.5 Hyperlipidemia, unspecified; J10.1 Influenza due to other identified influenza virus with other respiratory manifestations; R19.7 Diarrhea, unspecified; I89.0 Lymphedema, not elsewhere classified
CPT/HCPCS: 36415; 36416; 36600; 71045; 80048; 80053; 81001; 82607; 82803; 82962; 83036; 83880; 84145; 84443; 85025; 85378; 87086; 87426; 87631; 87635; 87804; 94640; 94760; 96365; 96372; 96375; 97116; 97161; 99285; G0378; J0696; J1650; J1815; J2405; J7030; J7040

== ENCOUNTER 2023-02-17 12:41 | Emergency (ER) | payer MEDICARE, MEDICAID, SELFPAY ==
[2023-02-17 12:48] VITALS: BP 179/70; PULSE 61; RESP 18; TEMP 36.7; O2SAT 94
[2023-02-17 14:23] VITALS: BP 188/71; O2SAT 95
[2023-02-17 14:40] LABS: Glucose Point of Care 95 mg/dL (70-110)
--- NOTE | 2023-02-17 14:44 | ECG_ITS ---
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 Measurements Intervals [place] Rate: 56 P: 30 [place]: 149 QRS: -14 QRSD: 105 T: 51 QT: 388 QTc: 376 Interpretive Statements SINUS BRADYCARDIA Unusual R wave progression Compared to ECG 06/06/2020 10:29:44 Sinus rhythm no longer present Left anterior fascicular block no longer present Electronically Signed On 02-18-2023 8:11:06 CDT by Donald Casanova M.D. [id number]
[2023-02-17 15:00] VITALS: BP 166/73; PULSE 54; RESP 17; O2SAT 94
[2023-02-17 16:08] LABS: Basophils % 0.4 %; Eosinophils # 0.1 10^3/uL (0.0-0.8); Eosinophils % 0.5 %; Hematocrit 43.2 % (37.0-47.0); Hemoglobin 13.7 g/dL (11.5-15.3); Lymphocytes # 2.3 10^3/uL (0.8-4.8); Lymphocytes % 23.8 %; Mean Corpuscular HGB Conc 31.7 g/dL (30.0-36.0); Mean Corpuscular Hemoglobin 30.4 pg (28.0-34.0); Mean Platelet Volume 11.7 fL (7.4-10.4); Monocytes # 0.8 10^3/uL (0.2-0.9); Monocytes % 8.7 %; Neutrophils # 6.43 10^3/uL (1.8-7.7); Neutrophils % 66.3 %; Nucleated Red Blood Cells % 0 %; Platelet Count 199 10^3/cmm (130-400); Red Cell Distribution Width 12.6 % (12.1-15.1); White Blood Count 9.7 10^3/uL (4.0-10.0)
[2023-02-17 16:33] LABS: Lactic Sepsis W/Reflex 1.1 mmol/L (0.5-2.2)
[2023-02-17 16:35] LABS: Troponin(5th) Baseline 35 ng/L (0-10)
[2023-02-17 16:41] LABS: Alanine Aminotransferase 16 U/L (0-33); Albumin Level 3.8 g/dL (3.5-5.2); Alkaline Phosphatase 73 U/L (35-105); Aspartate Amino Transferase 14 U/L (0-32); Blood Urea Nitrogen 18 mg/dL (8-23); Carbon Dioxide 27 mmol/L (22-29); Chloride 102 mmol/L (98-107); Globulin 3.3 g/dL (1.3-4.6); Glomerular Filtration Rate 49.5 mL/min (90-130); Glucose 84 mg/dL (65-115); Lipase 9 U/L (13-60); Magnesium 2.1 mg/dL (1.7-2.3); NT Pro B Type Natriuretic Pept 165 pg/mL (0-125); Osmolality Calculated 285 mOsm/kg (285-295); Sodium 137 mmol/L (136-145); Total Bilirubin 0.3 mg/dL (0.15-1.2); Total Protein 7.1 g/dL (6.6-8.7)
[2023-02-17 16:45] LABS: Add Urine Microscopic? NO; Charge for UA Resulting for Rev
[2023-02-17 16:58] LABS: Bilirubin Urine Neg (Negative); Blood Urine Neg (Negative); Glucose Urine UA Norm (Normal); Ketones Urine Negative (Negative); Leukocyte Esterase Urine Negative (Negative); Nitrate Urine Negative (Negative); Protein Urine Neg (Negative); Specific Gravity, Urine 1.015 (1.005-1.030); Sulfosalicylic Acid Urine Negative (Negative); Urine Appearance Clear (CLEAR); Urine Color Yellow (Yellow); Urobilinogen Urine Norm (Negative); pH Urine 9 (5-7)
--- NOTE | 2023-02-17 17:11 | ECG_ITS ---
[facility] Test Date: 2023-02-17 Pat Name: Celeste Rose Department: Room: Gender: Female Law Clerk: : 1955 Requested By: Jazz Main Order Number: [id number] Rosa MD: Donald Casanova M.D. Measurements Intervals [place] Rate: 55 P: 64 [place]: 169 QRS: -23 QRSD: 104 T: 46 QT: 396 QTc: 381 Interpretive Statements SINUS BRADYCARDIA POSSIBLE ANTERIOR MYOCARDIAL INFARCTION , PROBABLY OLD [30 ms Q WAVE IN V3/V4, OR R < 0.2 mV IN V4] Compared to ECG 02/17/2023 14:44:27 No significant changes Electronically Signed On 02-18-2023 8:14:46 CDT by Donald Casanova M.D. [id number]
[2023-02-17] MEDS: ondansetron 2 mg/ML SDV 2 mL 4 MG IVP (17:44)
--- NOTE | 2023-02-17 19:00 | CTR_ITS ---
PROCEDURE INFORMATION: Exam: CT Abdomen And Pelvis With Contrast Exam date and time: 02/17/2023 7:27 PM Age: 67 years old Clinical indication: Nausea and vomiting; Prior surgery; Surgery date: 6+ months; Surgery type: Appy. Partial hysterectomy. Patient HX: Persistent n/v. ; Additional info: Abdominal pain TECHNIQUE: Imaging protocol: Computed tomography of the abdomen and pelvis with contrast. Radiation optimization: All CT scans at this facility use at least one of these dose optimization techniques: automated exposure control; mA and/or kV adjustment per patient size (includes targeted exams where dose is matched to clinical indication); or iterative reconstruction. Contrast material: OMNI 350; Contrast volume: 100 ml; Contrast route: INTRAVENOUS (IV); REPORTING DATA: Count of CT and Cardiac NM exams in prior 12 months: This patient has received 0 known CTs and 0 known cardiac nuclear medicine studies in the 12 months prior to the current study. COMPARISON: CT angio chest PE protcl [id number] 06/06/2020 2:55 PM RADIATION DOSE METRICS: Total DLP (mGy-cm): 1291.67 FINDINGS: Liver: Low-density hepatic lesions have benign features the larger of which measures 9 mm. Gallbladder and bile ducts: Gallbladder is filled with stones. Pancreas: Normal. No ductal dilation. Spleen: The spleen is mildly enlarged measuring 12.9 centimetres. Adrenal glands: 13 mm nonspecific right adrenal nodular lesion. Kidneys and ureters: Normal. No hydronephrosis. Stomach and bowel: There is fluid and debris in the distal esophagus consistent with reflux. There is diverticulosis of the colon without evidence of diverticulitis. Appendix: No evidence of appendicitis. Intraperitoneal space: Unremarkable. No free air. No significant fluid collection. Vasculature: There is scattered atherosclerotic plaque in the aorta and iliac arteries. Lymph nodes: Unremarkable. No enlarged lymph nodes. Urinary bladder: Unremarkable as visualized. Reproductive: The uterus is not visualized, consistent with hysterectomy. Bones/joints: Unremarkable. No acute fracture. Soft tissues: Unremarkable. CT/CT abdomen pelvis w con* [id number] IMPRESSION: 1. There is fluid and debris in the distal esophagus consistent with reflux. 2. Gallbladder is filled with stones. 3. The spleen is mildly enlarged. 4. There is a 13 mm nonspecific right adrenal gland lesion.
[2023-02-17] MEDS: iohexol 350 mg/mL 500 mL Btl (per mL) IV (19:30)
--- NOTE | 2023-02-17 19:38 | ED_ITS ---
HPI - Nausea/Vomiting/Diarrhea General: Chief complaint: Nausea/Vomiting/Diarrhea Stated complaint: N/V/D Time Seen by Provider: 02/17/23 14:19 History of Present Illness: This patient is a 67 year old presenting for vomiting that started last night. She says that she has not been able to keep anything down and the only medicine has had been able to take is her lantus insulin. She denies abdominal pain or fever. No diarrhea. She denies any history of stomach problems. No one else is sick around her. She denies cardiac problems. She has not had surgery on her abdomen. PFS ED PFSH: Medical History (Updated 02/17/23 @ 23:05 by Jazz Mantilla MD) Acute UTI (urinary tract infection) COPD (chronic obstructive pulmonary disease) COVID-19 Herpes Hyperlipidemia Hypertension Hypoxia Morbid obesity with BMI of 45.0-49.9, adult Primary osteoarthritis of right knee Pulmonary embolism COVID related Type 2 diabetes mellitus URI (upper respiratory infection) Surgical History (Updated 07/19/22 @ 04:11 by Cooper Law MD) History of appendectomy S/P partial hysterectomy Family History Denies family history of CAD (coronary artery disease) Social History Smoking and tobacco status: never smoked Alcohol intake: never Substance/Drug Use: never Physical Exam Const: COMMON NORMALS: no acute distress, patient oriented x3, no limitations and alert GENERAL APPEARANCE: cooperative and comfortable NUTRITIONAL APPEARANCE: obese HENMT: HEAD & SCALP: normal to inspection FACE & SINUS: normal facial exam Eye: GENERAL EYE: appearance normal, both eyes and all related structures Neck/C-Spine: COMMON NORMALS: supple, no meningeal signs and no JVD Chest: COMMONS NORMALS: normal inspection of the chest Resp: COMMON NORMALS: normal respiratory effort, No use of accessory muscles and clear to auscultation bilaterally AUSCULTATION: clear to auscultation bilaterally Cardio: COMMON NORMALS: no JVD, regular rate, regular rhythm and No murmurs present (Cardio) RATE: regular rate RHYTHM: regular rhythm GI: COMMON NORMALS: Normal to inspection, nondistended, normoactive bowel sounds present, Soft to palpation and non-tender INSPECTION: Yes normal to inspection AUSCULTATION: Yes normoactive bowel sounds PALPATION: Yes Soft to palpation Back/Pelvis: COMMON NORMALS: thoracic and lumbar spine normal to inspection Extremity: COMMON NORMALS: normal to inspection OTHER: edema/obesity of arms and legs Neuro: COMMON NORMALS: patient oriented x3, moves all extremities, no focal motor deficits and no sensory deficits noted SENSORIUM/ORIENTATION: Yes alert MENINGEAL SIGNS: Yes no meningeal signs Psych: COMMON NORMALS: mental status grossly normal, cooperative and normal affect Skin: COMMON NORMALS: no rashes or lesions noted and turgor normal GENERAL SKIN EXAM: no rashes or lesions noted and turgor normal Course Vital Signs: Vital signs: Vital Signs Temperature 98.0 F 02/17/23 12:48 Pulse Rate 58 L 02/17/23 23:00 Respiratory Rate 17 02/17/23 15:00 Blood Pressure 176/67 02/17/23 23:00 Pulse Oximetry 97 02/17/23 23:00 Oxygen Delivery Me thod Room Air 02/17/23 20:00 MDM - Nausea/Vomiting/Diarrhea Medical Decision Making Benign abdominal exam - but patient unable to keep down food or fluid. Diabetic and on insulin. She did not get hypoglycemic in the ED but this was monitored. Labs unremarkable - however she still complains of nausea and vomited when given a PO challenge. CT pending. CT with gallstones - patient continues to complain of severe nausea. She now complains of RUQ pain when specifically asked. US done and shows stones, but no fluid or ductal dilatation noted. On re-evaluation following the US - patient is feeling better, tolerated PO fluids and wanted to go home. Lab Data 02/17/23 14:51 02/17/23 14:51 Radiology Impressions Abdomen/Pelvis CT 02/17/23 19:00 IMPRESSION: 1. There is fluid and debris in the distal esophagus consistent with reflux. 2. Gallbladder is filled with stones. 3. The spleen is mildly enlarged. 4. There is a 13 mm nonspecific right adrenal gland lesion. Laboratory Results WBC 9.7 10^3/uL (4.0-10.0) 02/17/23 14:51 RBC 4.50 10^6/uL (4.1-5.3) 02/17/23 14:51 Hgb 13.7 g/dL (11.5-15.3) 02/17/23 14:51 Hct 43.2 % (37.0-47.0) 02/17/23 14:51 MCV 96.0 fl (81-99) 02/17/23 14:51 MCH 30.4 pg (28.0-34.0) 02/17/23 14:51 MCHC 31.7 g/dL (30.0-36.0) 02/17/23 14:51 RDW 12.6 % (12.1-15.1) 02/17/23 14:51 Plt Count 199 10^3/cmm (130-400) 02/17/23 14:51 MPV 11.7 fL (7.4-10.4) H 02/17/23 14:51 Neut % (Auto) 66.3 % 02/17/23 14:51 Lymph % (Auto) 23.8 % 02/17/23 14:51 [place] % (Auto) 8.7 % 02/17/23 14:51 Eos % (Auto) 0.5 % 02/17/23 14:51 Baso % (Auto) 0.4 % 02/17/23 14:51 Neut # (Auto) 6.43 10^3/uL (1.8-7.7) 02/17/23 14:51 Lymph # (Auto) 2.3 10^3/uL (0.8-4.8) 02/17/23 14:51 [place] # (Auto) 0.8 10^3/uL (0.2-0.9) 02/17/23 14:51 Eos # (Auto) 0.1 10^3/uL (0.0-0.8) 02/17/23 14:51 Baso # (Auto) 0.0 10^3/uL (0.0-0.1) 02/17/23 14:51 Nucleated RBC % (auto) 0 % 02/17/23 14:51 Nucleated RBCs # 0.0 /100WBC 02/17/23 14:51 Sodium 137 mmol/L (136-145) 02/17/23 14:51 Potassium 4.0 mmol/L (3.5-5.1) 02/17/23 14:51 Chloride 102 mmol/L (98-107) 02/17/23 14:51 Carbon Dioxide 27 mmol/L (22-29) 02/17/23 14:51 Anion Gap 12.0 (5-19) 02/17/23 14:51 BUN 18 mg/dL (8-23) 02/17/23 14:51 Creatinine 1.1 mg/dL (0.5-0.9) H 02/17/23 14:51 GFR Calculation 49.5 mL/min (90-130) L 02/17/23 14:51 Glucose 84 mg/dL (65-115) 02/17/23 14:51 POC Glucose 95 mg/dL (70-110) 02/17/23 14:35 Calculated Osmolality 285 mOsm/kg (285-295) 02/17/23 14:51 Lactic Acid 1.1 mmol/L (0.5-2.2) 02/17/23 15:18 Calcium 10.0 mg/dL (8.5-10.5) 02/17/23 14:51 Magnesium 2.1 mg/dL (1.7-2.3) 02/17/23 14:51 Total Bilirubin 0.3 mg/dL (0.15-1.2) 02/17/23 14:51 AST 14 U/L (0-32) 02/17/23 14:51 ALT 16 U/L (0-33) 02/17/23 14:51 Alkaline Phosphatase 73 U/L (35-105) 02/17/23 14:51 Troponin T Baseline 35 ng/L (0-10) H 02/17/23 14:51 Troponin T 120 Minute 37.10 ng/L (0-10) H 02/17/23 17:48 Delta Troponin T 2.10 ABS# (0-10) 02/17/23 17:48 Troponin T Hi Sens 6Hr 41.23 ng/L (0-10) H 02/17/23 21:08 Troponin T Hi Sens 6Hr Delta 6.23 ng/L (0-12) 02/17/23 21:08 NT-Pro-B Natriuret Pep 165 pg/mL (0-125) H 02/17/23 14:51 Total Protein 7.1 g/dL (6.6-8.7) 02/17/23 14:51 Albumin 3.8 g/dL (3.5-5.2) 02/17/23 14:51 Globulin 3.3 g/dL (1.3-4.6) 02/17/23 14:51 Lipase 9 U/L (13-60) L 02/17/23 14:51 Urine Color Yellow (Yellow) 02/17/23 16:24 Urine Appearance Clear (CLEAR) 02/17/23 16:24 Urine pH 9 (5-7) H 02/17/23 16:24 Ur Specific [place] 1.015 (1.005-1.030) 02/17/23 16:24 Urine Protein Neg (Negative) 02/17/23 16:24 Urine Glucose (UA) Norm (Normal) 02/17/23 16:24 Urine Ketones Negative (Negative) 02/17/23 16:24 Urine Blood Neg (Negative) 02/17/23 16:24 Urine Nitrate Negative (Negative) 02/17/23 16:24 Urine Bilirubin Neg (Negative) 02/17/23 16:24 Prot Sulfosalicylic Acd Negative (Negative) 02/17/23 16:24 Urine Urobilinogen Norm mg/dL (Negative) 02/17/23 16:24 Ur Leukocyte Esterase Negative (Negative) 02/17/23 16:24 Discharge Plan Discharge Patient Disposition: Home Clinical Impression: Nausea & vomiting, Cholelithiasis Condition: Stable Prescriptions: New ondansetron 4 mg tablet,disintegrating 4 mg PO Q6H PRN (Reason: nausea and vomiting) Qty: 10 0RF No Action fluoxetine 20 mg capsule 20 mg PO DAILY furosemide [Lasix] 40 mg tablet 40 mg PO DAILY acyclovir 400 mg Tablet 400 mg PO BID ergocalciferol (vitamin D2) 1,250 mcg (50,000 unit) Capsule 50,000 unit PO Q7D Rx Instructions: takes on fridays insulin glargine [Lantus U-100 Insulin] 100 unit/mL Solution 82 unit SUBCUT BID gabapentin 300 mg Capsule 300 mg PO TID lovastatin 20 mg Tablet 20 mg PO DAILY losartan 100 mg Tablet 100 mg PO DAILY Januvia 100 mg Tablet 100 mg PO DAILY acetaminophen 500 mg Tablet 500 mg PO Q4H PRN (Reason: fever) Qty: 14 0RF Discharge Orders: Discharge ED (Routine); Ordered 02/17/23 Ordered By: Jazz Mantilla Referrals: Ene Richards MD [Primary Care Provider] - Patient Instructions: Opioid Safety, Pain Management Activity Restrictions/Additional Instructions: Take a bland diet until your nausea is gone. Follow up with your doctor r egarding the stones in your gallbladder. Return to the ED if new or worse symptoms. Coding Level of Care Code ED Respiratory Therapy Aide for Karl Longoria
[2023-02-17 20:00] VITALS: BP 164/94; PULSE 60; O2SAT 94
--- NOTE | 2023-02-17 20:37 | ECG_ITS ---
[facility] Test Date: 2023-02-17 Pat Name: Celeste Rose Department: Room: Gender: Female Safety Person: : 1955 Requested By: Jazz Main Order Number: [id number] Rosa MD: Donald Casanova M.D. Measurements Intervals Xenia Rate: 62 P: 57 MI: 159 QRS: -5 QRSD: 104 T: 42 QT: 392 QTc: 400 Interpretive Statements SINUS RHYTHM WITH SINUS ARRHYTHMIA POSSIBLE ANTERIOR MYOCARDIAL INFARCTION , PROBABLY OLD [30 ms Q WAVE IN V3/V4, OR R < 0.2 mV IN V4] Compared to ECG 02/17/2023 17:11:41 Sinus bradycardia no longer present Myocardial infarct finding still present Electronically Signed On 02-18-2023 8:16:03 CDT by Donald Casanova M.D. [id number]
--- NOTE | 2023-02-17 20:47 | USR_ITS ---
PROCEDURE INFORMATION: Exam: US Abdomen, Limited; Right Upper Quadrant Exam date and time: 02/17/2023 10:16 PM Age: 67 years old Clinical indication: Abnormal findings; Abnormal radiologic finding of the abdomen; Radiologic exam and body structure: Abd CT; Additional info: Gallstones on CT, vomiting TECHNIQUE: Imaging protocol: Real time ultrasound of the abdomen with image documentation. Limited exam focused on the right upper quadrant. COMPARISON: CT abdomen pelvis w con* [id number] 02/17/2023 7:27 PM FINDINGS: Liver: Liver measures 18 cm, mildly echogenic. Gallbladder: Gallbladder contains stones and is contracted. The wall was difficult to accurately measure, perhaps 2 mm. Biliary ducts: 5.5 mm CBD. Pancreas: The pancreas is not well seen due to overlying bowel gas. It shows no focal abnormality, however. Right kidney: Unremarkable. No solid renal mass or hydronephrosis. US/US gall bladder [id number] IMPRESSION: 1. The gallbladder is contracted and contains numerous stones. No overt wall thickening. Advise surgical consultation. Consider HIDA scan if indicated. 2. Large and steatotic liver. 3. Nondilated CBD.
[2023-02-17 21:53] LABS: Troponin 5 6HR 41.23 ng/L (0-10)
[2023-02-17 21:57] LABS: Troponin 5 6HR Delta 6.23 ng/L (0-12)
[2023-02-17 22:30] VITALS: BP 146/71; PULSE 51; O2SAT 96
[2023-02-17 23:00] VITALS: BP 176/67; PULSE 58; O2SAT 97
== END 2023-02-17 23:19 | disposition home or self-care (01) ==
PROVIDERS: Emergency Provider Emergency Medicine; PCP Family Medicine
DX: K80.20 Calculus of gallbladder without cholecystitis without obstruction (principal); E11.9 Type 2 diabetes mellitus without complications; I10 Essential (primary) hypertension; E78.5 Hyperlipidemia, unspecified; J44.9 Chronic obstructive pulmonary disease, unspecified; E66.01 Morbid (severe) obesity due to excess calories; Z68.42 Body mass index [BMI] 45.0-49.9, adult; Z86.16 Personal history of COVID-19; Z79.84 Long term (current) use of oral hypoglycemic drugs
CPT/HCPCS: 36415; 36416; 74177; 76705; 80053; 81003; 82962; 83605; 83690; 83735; 83880; 84484; 85025; 93005; 96374; 99284; J2405; Q9967

== ENCOUNTER 2023-02-19 08:59 | Observation (INO) | payer MEDICARE, MEDICAID, SELFPAY ==
[2023-02-19] VITALS (9 sets, daily range): BP systolic 141–174; BP diastolic 51–79; PULSE 54–59; RESP 16–20; TEMP 36.2–36.7; O2SAT 90–94; BMI 48.6
[2023-02-19 10:29] LABS: Basophils % 0.4 %; Eosinophils # 0.1 10^3/uL (0.0-0.8); Hematocrit 44.6 % (37.0-47.0); Hemoglobin 13.7 g/dL (11.5-15.3); Lymphocytes # 1.9 10^3/uL (0.8-4.8); Lymphocytes % 21.1 %; Mean Corpuscular HGB Conc 30.7 g/dL (30.0-36.0); Mean Corpuscular Volume 97.8 fl (81-99); Monocytes # 0.7 10^3/uL (0.2-0.9); Monocytes % 8.1 %; Neutrophils # 6.18 10^3/uL (1.8-7.7); Nucleated Red Blood Cells % 0 %; Platelet Count 170 10^3/cmm (130-400); Red Blood Count 4.56 10^6/uL (4.1-5.3); Red Cell Distribution Width 12.6 % (12.1-15.1)
--- NOTE | 2023-02-19 10:53 | W.ED.NAVMDI ---
HPI - Nausea/Vomiting/Diarrhea General: Chief complaint: Nausea/Vomiting/Diarrhea Stated complaint: N/V not able to keep meds down Time Seen by Provider: 02/19/23 09:03 Source: patient Mode of arrival: ambulatory Limitations: no limitations History of Present Illness: Patient is a 67-year-old female presents to ED today with a complaint of vomiting and inability to swallow/keep anything down over the past 3 days. Patient was seen at our facility on Saturday ago for the symptoms. Her ED work-up was essentially benign. Her blood work was unremarkable. Patient underwent CT imaging. Results of this below: CT/CT abdomen pelvis w con* [id number] IMPRESSION: 1. ? There is fluid and debris in the distal esophagus consistent with reflux. 2. ? Gallbladder is filled with stones. 3. ? The spleen is mildly enlarged. 4. ? There is a 13 mm nonspecific right adrenal gland lesion. Patient followed up with her primary care provider yesterday who told her if symptoms persisted she needed to return to the emergency department. Patient states anytime she eats or drinks she gets a pain to substernal region and then immediately vomits up that food and drink and then coughs up phlegm. Patient is not having any abdominal pain. She states she had a bowel movement yesterday and is passing flatulence. No fevers. Does not feel nauseous at rest. She states during recent her ED stay?she was given IV Zofran and Reglan without any improvement of her nausea and vomiting. Patient has never had abdominal surgery. PMH significant for COPD, HTN, HLD, morbid obesity, CHF, DM, neuropathy MD elicited complaint: nausea and vomiting Onset (ago): day(s) Associated nausea: Yes Associated abdominal pain: No Location of pain: None Exacerbating factors: eating Relieving factors: vomiting Associated symtoms: Reports nausea; Denies chest pain, dysuria, fatigue, headache(s) or malaise Review of Systems Const: Denies: fever(s), chills, body aches, fatigue or malaise Card: Denies: chest pain Resp: Denies: dyspnea GI: Reports: nausea and vomiting; Denies: abdominal pain, hematemesis, GI cramping, change in bowel habits, hematochezia or melena : Denies: flank pain, difficulty voiding, dysuria or urinary urgency Musc: Denies: neck pain, back pain, extremity pain or joint pain Skin/Breast: Denies: rash Neuro: Denies: headache(s), numbness in extremities, weakness in extremities or sensory changes PFSH ED PFSH: Medical History Acute UTI (urinary tract infection) COPD (chronic obstructive pulmonary disease) COVID-19 Herpes Hyperlipidemia Hypertension Hypoxia Morbid obesity with BMI of 45.0-49.9, adult Primary osteoarthritis of right knee Pulmonary embolism COVID related Type 2 diabetes mellitus URI (upper respiratory infection) Surgical History History of appendectomy S/P partial hysterectomy Family History Denies family history of CAD (coronary artery disease) Social History Smoking and tobacco status: never smoked Alcohol intake: never Substance/Drug Use: never Physical Exam Const: COMMON NORMALS: no acute distress, patient oriented x3, no limitations, alert and well nourished GENERAL APPEARANCE: cooperative NUTRITIONAL APPEARANCE: obese morbidly obese ORIENTATION/CONSCIOUSNESS: Yes awake, Yes oriented to person, Yes oriented to place and Yes oriented to time HENMT: COMMON NORMALS: normocephalic and atraumatic HEAD & SCALP: normal to inspection, normocephalic and atraumatic Neck/C-Spine: COMMON NORMALS: full ROM, no lymphadenopathy, supple and no meningeal signs Chest: COMMONS NORMALS: normal inspection of the chest and normal palpation of entire chest wall Resp: COMMON NORMALS: normal respiratory effort and clear to auscultation bilaterally AUSCULTATION: clear to auscultation bilaterally Cardio: COMMON NORMALS: regular rate and regular rhythm RATE: regular rate RHYTHM: regular rhythm GI: COMMON NORMALS: Normal to inspection, nondistended, normoactive bowel sounds present, Soft to palpation, non-tender, No hepatosplenomegaly present and no masses PALPATION: Yes Soft to palpation and Yes No hepatosplenomegaly present : COMMON NORMALS: Yes no CVA tenderness BLADDER/KIDNEY EXAM: Yes no CVA tenderness Back/Pelvis: COMMON NORMALS: no CVA tenderness Neuro: BARBARA COMA SCALE: document GCS findings Barbara coma scale eye opening: Spontaneous [place] coma scale verbal response: Orientated Barbara coma scale motor response: Obey commands [place] coma scale total score: 15 COMMON NORMALS: patient oriented x3 SENSORIUM/ORIENTATION: Yes alert, Yes oriented to person, Yes oriented to place and Yes oriented to time MENINGEAL SIGNS: Yes no meningeal signs Skin: COMMON NORMALS: no rashes or lesions noted GENERAL SKIN EXAM: no rashes or lesions noted Course ED course: Attempted GI cocktail after IV Compazine and seconds after ingesting the liquid she immediately vomits it up along with throat clearing/phlegm. Patient's symptoms sound mechanical. She has not been able to eat/drink for 3 days now. She is a diabetic. I spoke with Dr. Watson who agrees that we should consult with GI for possible inpatient hospitalization and EGD to further evaluate. Consultations: Consultation #1: Dr. Leiva-will plan for endoscopy tomorrow morning; recommends admit to hospitalist Consultation #2: Dr. Fortune-accepts admission, requesting order for HIDA scan Vital Signs: Vital signs: Vital Signs Temperature 98.1 F 02/19/23 09:06 Pulse Rate 55 L 02/19/23 10:51 Respiratory Rate 16 02/19/23 10:51 Blood Pressure 171/76 02/19/23 10:51 Pulse Oximetry 91 02/19/23 10:51 Oxygen Delivery Me thod Room Air 02/19/23 09:06 MDM - Nausea/Vomiting/Diarrhea Medical Decision Making Patient has not been able to swallow any type of food, liquid, or medications for 3 days now. Her history and physical presentation seems suspicious for an esophageal stricture/obstruction. I spoke to Dr. Leiva with plan for endoscopy tomorrow morning. Dr. Fortune will admit the patient. He is requesting HIDA scan imaging to be done on the inpatient side. Dr. Watson aware of patient and agrees with current plan. Lab Data 02/19/23 10:23 02/19/23 10:23 Radiology Impressions Chest X-Ray 02/19/23 11:02 IMPRESSION: No acute findings. Laboratory Results WBC 9.0 10^3/uL (4.0-10.0) 02/19/23 10:23 RBC 4.56 10^6/uL (4.1-5.3) 02/19/23 10:23 Hgb 13.7 g/dL (11.5-15.3) 02/19/23 10:23 Hct 44.6 % (37.0-47.0) 02/19/23 10:23 MCV 97.8 fl (81-99) 02/19/23 10:23 MCH 30.0 pg (28.0-34.0) 02/19/23 10:23 MCHC 30.7 g/dL (30.0-36.0) 02/19/23 10:23 RDW 12.6 % (12.1-15.1) 02/19/23 10:23 Plt Count 170 10^3/cmm (130-400) 02/19/23 10:23 MPV 11.0 fL (7.4-10.4) H 02/19/23 10:23 Neut % (Auto) 69.0 % 02/19/23 10:23 Lymph % (Auto) 21.1 % 02/19/23 10:23 Rosebud % (Auto) 8.1 % 02/19/23 10:23 Eos % (Auto) 1.0 % 02/19/23 10:23 Baso % (Auto) 0.4 % 02/19/23 10:23 Neut # (Auto) 6.18 10^3/uL (1.8-7.7) 02/19/23 10:23 Lymph # (Auto) 1.9 10^3/uL (0.8-4.8) 02/19/23 10:23 Rosebud # (Auto) 0.7 10^3/uL (0.2-0.9) 02/19/23 10:23 Eos # (Auto) 0.1 10^3/uL (0.0-0.8) 02/19/23 10:23 Baso # (Auto) 0.0 10^3/uL (0.0-0.1) 02/19/23 10:23 Nucleated RBC % (auto) 0 % 02/19/23 10:23 Nucleated RBCs # 0.0 /100WBC 02/19/23 10:23 Sodium 142 mmol/L (136-145) 02/19/23 10:23 Potassium 4.5 mmol/L (3.5-5.1) 02/19/23 10:23 Chloride 106 mmol/L (98-107) 02/19/23 10:23 Carbon Dioxide 26 mmol/L (22-29) 02/19/23 10:23 Anion Gap 14.5 (5-19) 02/19/23 10:23 BUN 22 mg/dL (8-23) 02/19/23 10:23 Creatinine 1.1 mg/dL (0.5-0.9) H 02/19/23 10:23 GFR Calculation 49.5 mL/min (90-130) L 02/19/23 10:23 Glucose 152 mg/dL (65-115) H 02/19/23 10:23 Calculated Osmolality 300 mOsm/kg (285-295) H 02/19/23 10:23 Calcium 10.1 mg/dL (8.5-10.5) 02/19/23 10:23 Total Bilirubin 0.5 mg/dL (0.15-1.2) 02/19/23 10:23 AST 16 U/L (0-32) 02/19/23 10:23 ALT 18 U/L (0-33) 02/19/23 10:23 Alkaline Phosphatase 77 U/L (35-105) 02/19/23 10:23 Total Protein 7.0 g/dL (6.6-8.7) 02/19/23 10:23 Albumin 3.9 g/dL (3.5-5.2) 02/19/23 10:23 Globulin 3.1 g/dL (1.3-4.6) 02/19/23 10:23 Lipase 9 U/L (13-60) L 02/19/23 10:23 Urine Color Yellow (Yellow) 02/19/23 11:20 Urine Appearance Sl hazy (CLEAR) A 02/19/23 11:20 Urine pH 5 (5-7) 02/19/23 11:20 Ur Specific [place] 1.025 (1.005-1.030) 02/19/23 11:20 Urine Protein Trace (Negative) 02/19/23 11:20 Urine Glucose (UA) Norm (Normal) 02/19/23 11:20 Urine Ketones 2+ (Negative) H 02/19/23 11:20 Urine Blood Neg (Negative) 02/19/23 11:20 Urine Nitrate Negative (Negative) 02/19/23 11:20 Urine Bilirubin 1+ (Negative) H 02/19/23 11:20 Urine Urobilinogen 1 mg/dL (Negative) H 02/19/23 11:20 Ur Leukocyte Esterase Negative (Negative) 02/19/23 11:20 Urine RBC 0-4 /hpf (0-2) H 02/19/23 11:20 Urine WBC 0-4 /hpf (0-5) H 02/19/23 11:20 Ur Squamous Epith Cells 10-15 /hpf (0-5) H 02/19/23 11:20 Amorphous Sediment Not Reportable 02/19/23 11:20 Urine Bacteria 1+ /hpf (NONE) H 02/19/23 11:20 Urine Mucus 1+ /hpf 02/19/23 11:20 Discharge Plan Discharge Patient Disposition: Admitted As Inpatient Clinical Impression: Esophageal dysphagia Condition: Stable Coding Level of Care Code ED [employer] for Karl Longoria
--- NOTE | 2023-02-19 11:02 | XRR_ITS ---
PROCEDURE INFORMATION: Exam: XR Chest Exam date and time: 02/19/2023 11:21 AM Age: 67 years old Clinical indication: Angina pectoris; Patient HX: Chest pain, bronchitis TECHNIQUE: Imaging protocol: Radiologic exam of the chest. Views: 1 view. COMPARISON: CR XR chest 1V portable [id number] 07/18/2022 11:41 PM FINDINGS: Lungs: There is no consolidation. There are high density nodules in the right hilum and right upper lobe similar to the 07/18/2022 suggesting calcified granulomas. Pleural spaces: There is no pleural effusion or pneumothorax. Heart/Mediastinum: Cardiomediastinal contours are unremarkable. Bones/joints: Bones are unremarkable. XR/XR chest 1V portable [id number] IMPRESSION: No acute findings.
[2023-02-19 11:05] LABS: Alanine Aminotransferase 18 U/L (0-33); Albumin Level 3.9 g/dL (3.5-5.2); Alkaline Phosphatase 77 U/L (35-105); Anion Gap 14.5 (5-19); Aspartate Amino Transferase 16 U/L (0-32); Blood Urea Nitrogen 22 mg/dL (8-23); Calcium 10.1 mg/dL (8.5-10.5); Carbon Dioxide 26 mmol/L (22-29); Chloride 106 mmol/L (98-107); Globulin 3.1 g/dL (1.3-4.6); Glomerular Filtration Rate 49.5 mL/min (90-130); Glucose 152 mg/dL (65-115); Lipase 9 U/L (13-60); Osmolality Calculated 300 mOsm/kg (285-295); Potassium 4.5 mmol/L (3.5-5.1); Sodium 142 mmol/L (136-145); Total Bilirubin 0.5 mg/dL (0.15-1.2)
[2023-02-19] MEDS: prochlorperazine 10 mg/2 mL Inj 5 MG IVP (11:15)
[2023-02-19] MEDS: alum-mag-hydroxide-sime 30 mL UDC PO (11:15)
[2023-02-19] MEDS: sucralfate 1 gm/10 mL Oral Liq UDC PO (11:15)
--- NOTE | 2023-02-19 11:44 | PC.PHAR ---
pt states she takes care of her own medications-pt states she takes gabapentin 300mg bid rx filled 02/05/23 30d/s 300mg tid-lantus filled 02/18/23 33d/s 75 units bid pt states she uses 82 units bid pt states hasnt used insulin since 02/17/23-ext med history shows zofran 4mg and 8mg filled 02/18/23 pt states she is using the 8mg prn-notes are made in the pharmacy comments
[2023-02-19 12:18] LABS: Add Urine Microscopic? YES; Bilirubin Urine 1+ (Negative); Blood Urine Neg (Negative); Glucose Urine UA Norm (Normal); Ketones Urine 2+ (Negative); Leukocyte Esterase Urine Negative (Negative); Nitrate Urine Negative (Negative); Protein Urine Trace (Negative); Specific Gravity, Urine 1.025 (1.005-1.030); Urine Appearance SL Hazy (CLEAR); Urine Color Yellow (Yellow); Urobilinogen Urine 1 mg/dL (Negative); pH Urine 5 (5-7)
[2023-02-19 12:23] LABS: Add Urine Culture? No; Bacteria Urine 1+ /hpf; Mucus Urine 1+ /hpf; RBC Urine 0-4 /hpf (0-2); WBC Urine 0-4 /hpf (0-5)
[2023-02-19] MEDS: enalaprilat 1.25 mg/mL Inj 0.625 MG IVP (12:47)
--- NOTE | 2023-02-19 12:58 | PC.NURSE ---
Preparations for the Hepatobiliary (HIDA) Scan on 02/20/2023: 1) Please make sure patient eats or at least drinks an ensure tonight. 2) No pain medications after midnight. 3) NPO after midnight. Thank you. Nuclear Medicine
[2023-02-19] MEDS: sodium chloride 0.9% 1,000 ML 75 ML IV (15:51)
[2023-02-19] MEDS: pantoprazole 40 mg SDV IVP ×2 (15:51→17:25)
--- NOTE | 2023-02-19 16:08 | PM.HP ---
Providers/Chief Complaint Admitting Physician: Ronnell Farmer MD Primary Care Provider: Ene Richards MD Chief Complaint: N/V not able to keep meds down History of Present Illness Celeste Rose is a 67 year old female with past medical history of morbid obesity, hypertension, hyperlipidemia, type 2 diabetes mellitus who presents to the ER second time in last 3 days for persistent nausea and vomiting. Patient states she is not able to keep anything down including solids and liquids. She states after consuming anything she feels as if she is choking, tightness in her food pipe and she vomits the food. All symptoms started on Saturday, today is Saturday. Denies having any complaints admitted to this in the past. Denies any abdominal pain, dizziness, bowel movements different than usual. Review of Systems General: Reports: 10 or more systems reviewed and unremarkable except in HPI and below Const: Denies: fever(s), chills, body aches, change in appetite, change in weight, malaise, night sweats, diaphoresis, change in sleep pattern, daytime sleepiness or snoring Eyes: Denies: change in vision, blurry vision, photophobia, eye discomfort or eye discharge ENMT: Denies: throat pain, enlarged tonsils, hoarseness, mouth pain, oral sores, dry mouth, tinnitus, nasal congestion or post nasal drip Card: Denies: chest pain, palpitations, irregular heart rhythm, edema, swelling of feet/ankles, lightheadedness, syncope, pre-syncope, dyspnea on exertion, orthopnea, leg pain with exertion or acrocyanosis Resp: Denies: dyspnea, productive cough, non-productive cough, wheezing, stridor, pain on inspiration, change in phlegm color, hemoptysis or chest congestion GI: Denies: abdominal pain, nausea, vomiting, hematemesis, coffee ground emesis, dysphagia, heartburn, diarrhea, constipation, bloating, GI cramping, change in bowel habits, pain on defecation, hematochezia or melena : Denies: flank pain, dysuria, urinary frequency, urinary urgency, urinary hesitancy, nocturia or hematuria Musc: Denies: neck pain, back pain, extremity pain, joint pain, joint swelling, joint redness, joint stiffness or limited range of motion Neuro: Denies: headache(s), numbness in extremities, weakness in extremities, sensory changes, lack of coordination, difficulty walking, frequent falls, dizziness, vertigo, confusion, Slurred speech present, difficulty communicating thoughts or seizure-like activity Psych: Denies: anxiety, depression, mood swings, panic attacks, hopelessness or irritability Endo: Denies: polyuria, polydipsia, tired all the time, cold intolerance, excessive sweating, flushing or heat intolerance Mario/Lymph: Denies: easy bruising or easy bleeding All/Imm: Denies: tongue swelling, facial swelling or acute wheezing Medications/Allergies Home Medications Medication Instructions Recorded Confirmed Last Taken Type fluoxetine 20 mg capsule 20 mg PO QAM 11/02/19 02/19/23 02/19/23 History threw up after takin acyclovir 400 mg tablet 400 mg PO BID 06/06/20 02/19/23 02/19/23 History threw up after takin ergocalciferol (vitamin D2) 1,250 50,000 unit PO Q7D 06/06/20 02/19/23 02/15/23 History mcg (50,000 unit) capsule gabapentin 300 mg capsule 300 mg PO BID 07/19/22 02/19/23 02/19/23 History see pharmacy comment insulin glargine 100 unit/mL 82 unit SUBCUT BID 07/19/22 02/19/23 02/17/23 History subcutaneous solution (Lantus U-100 Insulin) losartan 100 mg tablet 100 mg PO QAM 07/19/22 02/19/23 02/19/23 History lovastatin 20 mg tablet 20 mg PO QPM 07/19/22 02/19/23 02/18/23 History sitagliptin phosphate 100 mg 100 mg PO QPM 07/19/22 02/19/23 02/18/23 History tablet (Januvia) furosemide 20 mg tablet 40 mg PO QAM 02/19/23 02/19/23 02/19/23 History metoclopramide HCl 10 mg tablet 10 mg PO BID PRN Nausea And 02/19/23 02/19/23 Unknown History Vomiting ondansetron 8 mg disintegrating 8 mg PO TID PRN Nausea And Vomiting 02/19/23 02/19/23 02/19/23 History tablet Allergies Allergy/AdvReac Type Severity Reaction Status Date / Time Penicillins Allergy High Fevers Verified 02/19/23 11:36 promethazine [From Phenergan] Allergy ADR-Dizzine Verified 02/19/23 11:36 ss PFSH Acute PFSH: Medical History (Updated 02/19/23 @ 16:10 by Ronnell Farmer MD) Acute UTI (urinary tract infection) COPD (chronic obstructive pulmonary disease) COVID-19 Herpes Hyperlipidemia Hypertension Hypoxia Morbid obesity with BMI of 45.0-49.9, adult Primary osteoarthritis of right knee Pulmonary embolism COVID related Type 2 diabetes mellitus URI (upper respiratory infection) Surgical History History of appendectomy S/P partial hysterectomy Family History Denies family history of CAD (coronary artery disease) Social History Smoking and tobacco status: never smoked Alcohol intake: never Substance/Drug Use: never Vitals/I&O/Wt Last Vital Signs Temp 98.1 F 02/19/23 09:06 Pulse 54 L 02/19/23 14:46 Resp 16 02/19/23 10:51 BP 141/51 02/19/23 14:46 Pulse Ox 94 02/19/23 14:46 O2 Del Method Room Air 02/19/23 15:07 Weight last 48 hrs Weight 132.449 kg Physical Exam Narrative: General: No acute distress, AO x3, morbidly obese on room air HEENT: PERRLA, pupils bilaterally equal and reactive Chest: Normal vesicular breath sounds, no added sounds, equal good air entry bilaterally CVS: S1-S2 regular, no murmurs, no tachycardia, no gallops, no rubs Abdomen: Soft, nontender, no organomegaly, bowel sounds present Neuro: No focal deficits, no facial deformity, AO x3, power 5/5 in all limbs Data 02/19/23 10:23 02/19/23 10:23 Other data: CT abdomen pelvis done on 02/17: CT/CT abdomen pelvis w con* [id number] IMPRESSION: 1. ? There is fluid and debris in the distal esophagus consistent with reflux. 2. ? Gallbladder is filled with stones. 3. ? The spleen is mildly enlarged. 4. ? There is a 13 mm nonspecific right adrenal gland lesion. Abdominal gallbladder ultrasound done on 02/17: US/US gall bladder [id number] IMPRESSION: 1. ? The gallbladder is contracted and contains numerous stones. No overt wall thickening. Advise surgical consultation. Consider HIDA scan if indicated. 2. ? Large and steatotic liver. 3. ? Nondilated CBD. ? A&P Assessment and plan (1) Nausea & vomiting: Symptoms concerning for possible esophageal dysphagia. Surgery has been consulted from the ER. Plan for EGD in a.m. N.p.o. except meds for now. Start with gentle IV hydration with normal saline at 75 cc/h. Cannot rule out esophageal dysmotility versus diabetic gastropathy. For now will await EGD and depending on the results we will plan for barium swallow. Start on IV Reglan 5 mg every 6 hourly. Protonix daily. Zofran as needed. (2) Esophageal dysphagia: (3) Cholelithiasis: Without any concerns for cholecystitis. Liver functions within limit. Check HIDA scan. (4) Type 2 diabetes mellitus: Check A1c. Continue home dose of Lantus. Insulin sliding scale at moderate dose protocol every 6 hourly. (5) Hypertension: Goal blood pressure less than 140/90 mmHg. Takes losartan at home. Continue the same for now. IV hydralazine 10 mg every 6 hourly for systolic blood pressure of more than 160 mmHg as needed. Plan CKD: Baseline creatinine around 1.1. Creatinine at baseline for now. Monitor daily. Continue home dose of losartan. N.p.o. except meds. Full code. Protonix will help for PUD prophylaxis Heparin 5000 every 12 hourly for DVT prophylaxis. Attestations Medical Necessity Statement*: Requires admission for more than 2 midnights for management of persistent nausea and vomiting hindering any oral intake while esophageal dysphagia is worked up with endoscopy, IV hydration was given no oral intake Diagnoses Nausea & vomiting R11.2 Esophageal dysphagia R13.19 Cholelithiasis K80.20 Type 2 diabetes mellitus E11.9 Hypertension I10
[2023-02-19 16:29] LABS: Glucose Point of Care 166 mg/dL (70-110)
[2023-02-19 16:53] LABS: Procalcitonin 0.05 ng/mL (0-0.5); Thyroid Stimulating Hormone 2.03 uIU/mL (0.27-4.20); Vitamin B12 364 pg/mL (232-1245)
[2023-02-19 17:11] LABS: Iron 82 ug/dL (37-145)
[2023-02-19 17:25] LABS: Percent Saturation 30.3 % (20-50); Total Iron Binding Capacity 270 mcg/dl; Unsaturated Iron Binding 188 ug/dL (112-347)
[2023-02-19] MEDS: metoclopramide 5 mg/mL SDV 2 mL IVP ×2 (17:25→21:29)
[2023-02-19] MEDS: gabapentin 300 mg Capsule PO (17:25)
[2023-02-19] MEDS: heparin 5,000 unit/mL INJ 1 mL 5000 UNIT SUBCUT (17:26)
[2023-02-19] MEDS: insulin lispro 100 unit/1 mL SUBCUT (17:26)
--- NOTE | 2023-02-19 17:27 | PM.CONSULT ---
Providers/Reason For Consult Consulting Physician/Specialty*: Dr. Franki Leiva, DO/General surgery Reason for Consult*: Dysphagia Attending Physician: Ronnell Farmer MD Primary Care Provider: Ene Richards MD History of Present Illness History of Present Illness Celeste Rose is a 67 year old female who presented to the hospital with a 3-day history of dysphagia, nausea and vomiting. She denies any significant abdominal pain. This is never happened to her before. Every time she tries to drink or eat anything she has vomited. Denies any fever or chills Review of Systems General: Reports: 10 or more systems reviewed and unremarkable except in HPI and below Medications/Allergies Home Medications Medication Instructions Recorded Confirmed Last Taken Type fluoxetine 20 mg capsule 20 mg PO QAM 11/02/19 02/19/23 02/19/23 History threw up after takin acyclovir 400 mg tablet 400 mg PO BID 06/06/20 02/19/23 02/19/23 History threw up after takin ergocalciferol (vitamin D2) 1,250 50,000 unit PO Q7D 06/06/20 02/19/23 02/15/23 History mcg (50,000 unit) capsule gabapentin 300 mg capsule 300 mg PO BID 07/19/22 02/19/23 02/19/23 History see pharmacy comment insulin glargine 100 unit/mL 82 unit SUBCUT BID 07/19/22 02/19/23 02/17/23 History subcutaneous solution (Lantus U-100 Insulin) losartan 100 mg tablet 100 mg PO QAM 07/19/22 02/19/23 02/19/23 History lovastatin 20 mg tablet 20 mg PO QPM 07/19/22 02/19/23 02/18/23 History sitagliptin phosphate 100 mg 100 mg PO QPM 07/19/22 02/19/23 02/18/23 History tablet (Januvia) furosemide 20 mg tablet 40 mg PO QAM 02/19/23 02/19/23 02/19/23 History metoclopramide HCl 10 mg tablet 10 mg PO BID PRN Nausea And 02/19/23 02/19/23 Unknown History Vomiting ondansetron 8 mg disintegrating 8 mg PO TID PRN Nausea And Vomiting 02/19/23 02/19/23 02/19/23 History tablet Allergies Allergy/AdvReac Type Severity Reaction Status Date / Time Penicillins Allergy High Fevers Verified 02/19/23 11:36 promethazine [From Phenergan] Allergy ADR-Dizzine Verified 02/19/23 11:36 ss Current Medications Generic Name Dose Route Start Last Admin Trade Name Freq PRN Reason Stop Dose Admin Fluoxetine HCl 20 mg 02/20/23 06:00 02/20/23 05:42 Fluoxetine 20 Mg Capsule PO Not Given QAM ZOILA Gabapentin 300 mg 02/19/23 18:00 02/19/23 17:25 Gabapentin 300 Mg Capsule PO 300 mg BID ZOILA Administration Heparin Sodium (Porcine) 5,000 unit 02/19/23 16:15 02/20/23 04:04 Heparin 5,000 Unit/Ml Inj 1 Ml SUBCUT 5,000 unit Q12H ZOILA Administration Sodium Chloride 1,000 mls @ 75 mls/hr 02/19/23 15:15 02/20/23 04:28 Sodium Chloride 0.9% IV 75 mls/hr .[id number] ZOILA Administration Insulin Glargine 82 unit 02/19/23 18:00 02/19/23 18:07 Insulin Glargine 100 Units/1 Ml SUBCUT 82 unit BID ZOILA Administration Insulin Human Lispro 0 unit 02/19/23 16:15 02/20/23 03:58 Insulin Lispro 100 Unit/1 Ml SUBCUT Not Given Q6H [facility] Protocol Losartan Potassium 100 mg 02/20/23 06:00 02/20/23 05:42 Losartan 50 Mg Tablet PO Not Given QAM ZOILA Metoclopramide HCl 5 mg 02/19/23 16:15 02/20/23 04:03 Metoclopramide 5 Mg/Ml Sdv 2 Ml IVP 5 mg Q6H ZOILA Administration Ondansetron HCl 4 mg 02/19/23 16:04 02/20/23 05:28 Ondansetron 2 Mg/Ml Sdv 2 Ml IVP 4 mg Q8H PRN Administration vomiting, or N/V if npo Pantoprazole Sodium 40 mg 02/19/23 16:15 02/19/23 17:25 Pantoprazole 40 Mg Sdv IVP 40 mg Q24H ZOILA Administration PFSH Acute PFSH: Medical History Acute UTI (urinary tract infection) COPD (chronic obstructive pulmonary disease) COVID-19 Herpes Hyperlipidemia Hypertension Hypoxia Morbid obesity with BMI of 45.0-49.9, adult Primary osteoarthritis of right knee Pulmonary embolism COVID related Type 2 diabetes mellitus URI (upper respiratory infection) Surgical History History of appendectomy S/P partial hysterectomy Family History Denies family history of CAD (coronary artery disease) Social History Smoking and tobacco status: never smoked Alcohol intake: never Substance/Drug Use: never Vitals/I&O/Wt Last Vital Signs Temp 98.2 F 02/20/23 04:00 Pulse 54 L 02/20/23 06:00 Resp 17 02/20/23 04:00 BP 153/73 02/20/23 04:00 Pulse Ox 91 02/20/23 04:00 O2 Del Method Room Air 02/20/23 04:00 02/19/23 02/19/23 02/20/23 14:59 22:59 06:59 Intake Total 1000 / 1000 Balance 1000 / 1000 Weight last 48 hrs Weight 292 lb Physical Exam Narrative: General : Patient is well developed , no acute distress, oriented x3 Head : Normal cephalic, a-traumatic. Ears : Pinnae and external canal are normal. Hearing is normal. Eyes : PERRLA, Sclera and injection are normal. No conjunctival discharge. Nose : Mucous membranes are without erythema. Throat : buccal mucosa is normal, gums are without significant recession or hypertrophy. Lungs : Equal chest rise bilaterally, no use of accessory muscles, trachea is midline. Cor : Rate and rhythm are normal. Abdomen : Soft, ND, NT, no g/r/m Extremities : No edema, no cyanosis or clubbing, dorsalis pedis pulses are present bilaterally, non-tender to palpation of calves. Upper extremities are normal bilaterally. Back : non-tender to palpation, no CVA tenderness. Neuro : CN II - XII intact, Upper and lower extremities have equal and full strength Data 02/20/23 05:19 02/19/23 10:23 A&P Assessment and plan (1) Cholelithiasis: (2) Esophageal dysphagia: Plan N.p.o. after midnight EGD tomorrow The risks and benefits of the procedure, including bleeding, infection, intestinal perforation requiring surgery, missed lesion were explained to the patient. The patient is understanding of the risks and wishes to proceed. Follow-up HIDA scan Medical management per hospitalist Coding Level of Care Code 08500 Diagnoses Cholelithiasis K80.20 Esophageal dysphagia R13.19
[2023-02-19] MEDS: insulin glargine 100 units/1 mL 82 UNIT SUBCUT (18:07)
[2023-02-19 21:17] LABS: Glucose Point of Care 127 mg/dL (70-110)
[2023-02-20] VITALS (19 sets, daily range): BP systolic 138–180; BP diastolic 60–128; PULSE 54–87; RESP 16–18; TEMP 36.2–37.1; O2SAT 90–95
[2023-02-20 02:28] LABS: Urine Appearance SL Hazy (CLEAR); Urine Color Yellow (Yellow)
[2023-02-20 02:29] LABS: Add Urine Microscopic? YES; Bilirubin Urine Neg (Negative); Blood Urine Neg (Negative); Glucose Urine UA Norm (Normal); Ketones Urine 1+ (Negative); Leukocyte Esterase Urine Negative (Negative); Nitrate Urine Negative (Negative); Protein Urine Neg (Negative); Specific Gravity, Urine 1.025 (1.005-1.030); Urobilinogen Urine 1 mg/dL (Negative); pH Urine 5 (5-7)
[2023-02-20 02:32] LABS: WBC Urine 0-4 /hpf (0-5)
[2023-02-20 02:33] LABS: Add Urine Culture? Yes; Bacteria Urine 3+ /hpf
[2023-02-20 04:01] LABS: Glucose Point of Care 122 mg/dL (70-110)
[2023-02-20] MEDS: metoclopramide 5 mg/mL SDV 2 mL IVP (04:03)
[2023-02-20] MEDS: heparin 5,000 unit/mL INJ 1 mL 5000 UNIT SUBCUT (04:04)
[2023-02-20] MEDS: sodium chloride 0.9% 1,000 ML 75 ML IV (04:28)
[2023-02-20] MEDS: ondansetron 2 mg/ML SDV 2 mL 4 MG IVP (05:28)
[2023-02-20 06:13] LABS: Basophils % 0.3 %; Eosinophils # 0.1 10^3/uL (0.0-0.8); Eosinophils % 1.5 %; Hemoglobin 12.2 g/dL (11.5-15.3); Lymphocytes # 2.1 10^3/uL (0.8-4.8); Lymphocytes % 23.3 %; Mean Corpuscular HGB Conc 31.3 g/dL (30.0-36.0); Mean Corpuscular Hemoglobin 30.6 pg (28.0-34.0); Mean Corpuscular Volume 97.7 fl (81-99); Mean Platelet Volume 10.9 fL (7.4-10.4); Monocytes # 0.8 10^3/uL (0.2-0.9); Monocytes % 9.3 %; Neutrophils % 65.3 %; Nucleated Red Blood Cells % 0 %; Platelet Count 170 10^3/cmm (130-400); Red Blood Count 3.99 10^6/uL (4.1-5.3); Red Cell Distribution Width 12.6 % (12.1-15.1); White Blood Count 9.1 10^3/uL (4.0-10.0)
[2023-02-20 06:41] LABS: Alanine Aminotransferase 15 U/L (0-33); Albumin Level 3.3 g/dL (3.5-5.2); Alkaline Phosphatase 64 U/L (35-105); Aspartate Amino Transferase 16 U/L (0-32); Blood Urea Nitrogen 20 mg/dL (8-23); Calcium 9.5 mg/dL (8.5-10.5); Carbon Dioxide 26 mmol/L (22-29); Chloride 107 mmol/L (98-107); Globulin 3.1 g/dL (1.3-4.6); Glomerular Filtration Rate 55.3 mL/min (90-130); Glucose 123 mg/dL (65-115); Magnesium 2.3 mg/dL (1.7-2.3); Osmolality Calculated 298 mOsm/kg (285-295); Phosphorus 2.2 mg/dL (2.5-4.5); Sodium 142 mmol/L (136-145); Total Bilirubin 0.4 mg/dL (0.15-1.2); Total Protein 6.4 g/dL (6.6-8.7)
[2023-02-20 06:47] LABS: Anion Gap 13.1 (5-19); Potassium 4.1 mmol/L (3.5-5.1)
[2023-02-20 06:50] LABS: Chol HDL Ratio 7.07 mg/dL (0.0-4.40); Cholesterol 205 mg/dL (0-200); HDL Cholesterol 29 mg/dL (60-100); LDL Cholesterol Calculated 143 mg/dL (50-129); LDL HDL Ratio 4.93 RATIO (0.00-3.22); Triglycerides 163 mg/dL (0-150)
[2023-02-20 07:05] LABS: Estmated Average Glucose 140; Folate Level 13.1 ng/mL (4.8-37.3); Hemoglobin A1C 6.5 % (4.0-6.0)
[2023-02-20 08:16] LABS: Glucose Point of Care 143 mg/dL (70-110)
[2023-02-20] MEDS: insulin glargine 100 units/1 mL 40 UNIT SUBCUT (10:25)
--- NOTE | 2023-02-20 11:24 | ANES.PAUD2 ---
Pre-Anesthetic Update Pre-Anesthetic Assessment: Date of Surgery/Procedure: 02/20/23 Proposed Procedure: Operation Date: 02/20/23 11:00 Proposed Procedures p EGD(Not Applicable) - Franki Leiva DO Labs Last 48hrs: Short CBC 02/19/23 02/20/23 Range/Units 10:23 05:19 WBC 9.0 9.1 (4.0-10.0) 10^3/ uL Hgb 13.7 12.2 (11.5-15.3) g/dL Hct 44.6 39.0 (37.0-47.0) % MCV 97.8 97.7 (81-99) fl Plt Count 170 170 (130-400) 10^3/c mm Neut % (Auto) 69.0 65.3 % Neut # (Auto) 6.18 5.90 (1.8-7.7) 10^3/u L BMP 02/19/23 02/20/23 10:23 05:19 Sodium 142 142 Potassium 4.5 4.1 Chloride 106 107 Carbon Dioxide 26 26 BUN 22 20 Creatinine 1.1 H 1.0 H Glucose 152 H 123 H Calcium 10.1 9.5 Liver Function 02/19/23 02/20/23 Range/Units 10:23 05:19 Total Bilirubin 0.5 0.4 (0.15-1.2) mg/dL AST 16 16 (0-32) U/L ALT 18 15 (0-33) U/L Alkaline Phosphata se 77 64 (35-105) U/L Albumin 3.9 3.3 L (3.5-5.2) g/dL Urine 02/19/23 02/19/23 Range/Units 01:00 11:20 Urine Color Yellow Yellow (Yellow) Urine Appearance Sl hazy A Sl hazy A (CLEAR) Urine pH 5 5 (5-7) Ur Specific Gravit y 1.025 1.025 (1.005-1.030) Urine Protein Neg Trace (Negative) Urine Glucose (UA) Norm Norm (Normal) Urine Ketones 1+ H 2+ H (Negative) Urine Nitrate Negative Negative (Negative) Urine Bilirubin Neg 1+ H (Negative) Ur Leukocyte Esha ase Negative Negative (Negative) Urine RBC None 0-4 H (0-2) /hpf Urine WBC 0-4 H 0-4 H (0-5) /hpf Vitals: Temperature 98.1 F 02/20/23 07:05 Temperature Source Oral 02/20/23 04:00 Pulse Rate 61 02/20/23 07:05 Respiratory Rate 17 02/20/23 07:05 Respiratory Effort Spontaneous, Non- Labored 02/19/23 15:07 Respiratory Depth Normal 02/19/23 15:07 Respiratory Patter n Normal 02/19/23 15:07 Blood Pressure 163/78 02/20/23 07:05 Blood Pressure Kandy n 106 02/20/23 07:05 Pulse Oximetry 90 02/20/23 07:05 Oxygen Delivery Me thod Room Air 02/20/23 04:00 Other Pertinent Information: Other Pertinent Information: Surgeon and hospitalist came to bedside, eager for rate control to proceed with procedure, hospitalist ordered amio bolus and drip. Cardiac Studies: No Data to Display
[2023-02-20 11:40] LABS: Glucose Point of Care 136 mg/dL (70-110)
--- NOTE | 2023-02-20 11:47 | PM.PN ---
Vitals/I&O/Wt Last Vital Signs Temp 98.4 F 02/20/23 11:36 Pulse 62 02/20/23 11:36 Resp 16 02/20/23 11:36 BP 155/78 02/20/23 11:36 Pulse Ox 92 02/20/23 11:36 O2 Del Method Room Air 02/20/23 04:00 02/19/23 02/20/23 02/20/23 22:59 06:59 14:59 Intake Total 1000 / 1000 Balance 1000 / 1000 Weight last 48 hrs Weight 295 lb 5 oz Weight 292 lb Data 02/20/23 05:19 02/20/23 05:19 A&P Assessment and plan (1) Cholelithiasis: (2) Esophageal dysphagia: Plan EGD with possible balloon dilation The risks and benefits of the procedure, including bleeding, infection, intestinal perforation requiring surgery, missed lesion were explained to the patient. The patient is understanding of the risks and wishes to proceed. Follow-up HIDA scan Medical management per hospitalist Attestations Medical Necessity Statement*: Per primary Coding Level of Care Code Acute Code for Chg Fwd Diagnoses Cholelithiasis K80.20 Esophageal dysphagia R13.19
--- NOTE | 2023-02-20 12:04 | PC.NURSE ---
[facility] at approx. [phone]
--- NOTE | 2023-02-20 13:25 | ANE.PACU2 ---
Inpatient post-anesthesia follow up: Airway intact: Yes Vital signs: Temperature 97.3 F Pulse Rate 63 Respiratory Rate 18 Blood Pressure 138/65 Pulse Oximetry 95 Oxygen Delivery Me thod Nasal Cannula Oxygen Flow Rate 2 Fraction of Inspir ed Oxygen Hydration adequate: Yes Nausea and vomiting: No Pain level: 1 Mental status: Baseline
[2023-02-20 14:10] LABS: Glucose Point of Care 118 mg/dL (70-110)
--- NOTE | 2023-02-20 15:28 | PM.PN ---
Subjective Subjective: No acute events overnight. Patient has remained n.p.o. Continues to feel nauseous. Today morning even though patient was n.p.o. she was given Ensure for HIDA scan after which she vomited. Awaiting EGD. Otherwise has remained hemodynamically stable and afebrile. Vitals/I&O/Wt Last Vital Signs Temp 97.3 F L 02/20/23 13:05 Pulse 63 02/20/23 13:05 Resp 18 02/20/23 13:05 BP 138/65 02/20/23 13:05 Pulse Ox 95 02/20/23 13:05 O2 Del Method Nasal Cannula 02/20/23 13:05 O2 Flow Rate 2 02/20/23 13:05 02/20/23 02/20/23 02/20/23 06:59 14:59 22:59 Intake Total 1000 / 1000 1000 / 1000 Output Total 0 / 0 Balance 1000 / 1000 1000 / 1000 Weight last 48 hrs Weight 133.951 kg Weight 132.449 kg Physical Exam Narrative: General: No acute distress, AO x3, morbidly obese on room air HEENT: PERRLA, pupils bilaterally equal and reactive Chest: Normal vesicular breath sounds, no added sounds, equal good air entry bilaterally CVS: S1-S2 regular, no murmurs, no tachycardia, no gallops, no rubs Abdomen: Soft, nontender, no organomegaly, bowel sounds present Neuro: No focal deficits, no facial deformity, AO x3, power 5/5 in all limbs Data 02/20/23 05:19 02/20/23 05:19 A&P Assessment and plan (1) Nausea & vomiting: Symptoms concerning for possible esophageal dysphagia. Plan for EGD today. Continue to NPO. Will advance diet post EGD as per EGD findings. Continue with gentle IV hydration with normal saline at 75 cc/h. Cannot rule out esophageal dysmotility versus diabetic gastropathy. For now will await EGD and depending on the results we will plan for barium swallow. Continue with IV Reglan 5 mg every 6 hourly. Protonix daily. Zofran as needed. (2) Esophageal dysphagia: (3) Cholelithiasis: Without any concerns for cholecystitis. Liver functions within limit. Check HIDA scan. (4) Type 2 diabetes mellitus: A1c 6.5. Continue home dose of Lantus. Insulin sliding scale at moderate dose protocol every 6 hourly. (5) Hypertension: Goal blood pressure less than 140/90 mmHg. Takes losartan at home. Continue the same for now. IV hydralazine 10 mg every 6 hourly for systolic blood pressure of more than 160 mmHg as needed. Plan CKD: Baseline creatinine around 1.1. Creatinine at baseline for now. Monitor daily. Continue home dose of losartan. N.p.o. except meds. Full code. Protonix will help for PUD prophylaxis Heparin 5000 every 12 hourly for DVT prophylaxis. Attestations Medical Necessity Statement*: Requires further hospitalization for management of nausea and vomiting leading to poor oral intake possibly because of esophageal dysphagia while patient awaits EGD Diagnoses Nausea & vomiting R11.2 Esophageal dysphagia R13.19 Cholelithiasis K80.20 Type 2 diabetes mellitus E11.9 Hypertension I10
[2023-02-20 16:55] LABS: Glucose Point of Care 124 mg/dL (70-110)
== END 2023-02-20 18:45 | disposition home or self-care (01) ==
LOC: ER 13:05 → MEDSURG 14:21
PROVIDERS: Surgery; Admitting Provider Student in an Organized Health Care Education/Training Program; Emergency Provider Physician Assistant; PCP Family Medicine; Visit Provider Student in an Organized Health Care Education/Training Program
PROC: 0DJ08ZZ Inspection of Upper Intestinal Tract, Via Natural or Artificial Opening Endoscopic (ICD-10-PCS; CPT 43235; principal; 2023-02-20 11:00)
DX: T18.128A Food in esophagus causing other injury, initial encounter (principal); E11.42 Type 2 diabetes mellitus with diabetic polyneuropathy; E78.5 Hyperlipidemia, unspecified; E66.01 Morbid (severe) obesity due to excess calories; Z68.42 Body mass index [BMI] 45.0-49.9, adult; Z79.4 Long term (current) use of insulin; K80.20 Calculus of gallbladder without cholecystitis without obstruction; Y99.9 Unspecified external cause status; K29.50 Unspecified chronic gastritis without bleeding; I10 Essential (primary) hypertension
CPT/HCPCS: 36415; 36416; 43247; 71045; 74177; 76705; 80053; 80061; 81001; 81003; 82607; 82746; 82962; 83036; 83540; 83550; 83605; 83690; 83735; 83880; 84100; 84145; 84443; 84484; 85025; 87077; 87086; 87186; 88305; 93005; 94664; 96372; 96374; 96375; 97116; 97161; 99284; 99285; C9113; G0378; J0330; J0780; J1644; J1815; J2405; J2704; J2765; J3010; J3490; J7030; Q9967

== ENCOUNTER → 2023-02-27 13:57 | Outpatient (BNVA) | payer MEDICARE, MEDICAID, SELFPAY | PROVIDERS: PCP Family Medicine; Visit Provider Surgery | DX: Z09 Encounter for follow-up examination after completed treatment for conditions other than malignant neoplasm (principal) | CPT/HCPCS: 99203; 99213 ==

== ENCOUNTER → 2023-03-11 08:38 | Outpatient (BNVA) | payer MEDICARE, MEDICAID, SELFPAY | PROVIDERS: PCP Family Medicine; Visit Provider Podiatrist Foot & Ankle Surgery | DX: B35.1 Tinea unguium (principal); I73.9 Peripheral vascular disease, unspecified; G62.9 Polyneuropathy, unspecified; R60.9 Edema, unspecified; E11.42 Type 2 diabetes mellitus with diabetic polyneuropathy; Z79.4 Long term (current) use of insulin | CPT/HCPCS: 11721; 99204 ==

== ENCOUNTER → 2023-04-08 11:33 | Outpatient (BNVA) | payer MEDICARE, MEDICAID, SELFPAY | PROVIDERS: PCP Family Medicine; Visit Provider Surgery | DX: R13.19 Other dysphagia (principal) | CPT/HCPCS: 99203; 99214 ==

== ENCOUNTER 2023-04-11 07:38 | Day surgery (SDC) | payer MEDICARE, MEDICAID, SELFPAY ==
[2023-04-10 08:44] VITALS: BMI 48.6
--- NOTE | 2023-04-11 06:25 | P.HPUD_ITS ---
Surgery/Procedure H&P Update DATE OF PROCEDURE: April 11, 2023 DATE H&P PERFORMED: 04/08/23 H&P UPDATE INFORMATION: I have reviewed H&P completed within last 30 days, I have examined patient prior to procedure, No changes to prior documentation and H&P is in [facility] E[place] on date indicated PLANNED PROCEDURE: Operation Date: 04/11/23 08:00 Proposed Procedures p 93405 EGD w/Balloon dial R13.19(Not Applicable) - Akbar Teresa MD
--- NOTE | 2023-04-11 06:25 | W.PM.OPSUD ---
Surgery/Procedure H&P Update DATE OF PROCEDURE: April 11, 2023 DATE H&P PERFORMED: 04/08/23 H&P UPDATE INFORMATION: I have reviewed H&P completed within last 30 days, I have examined patient prior to procedure, No changes to prior documentation and H&P is in [facility] EMR on date indicated PLANNED PROCEDURE: Operation Date: 04/11/23 08:00 Proposed Procedures p [id number] EGD w/Balloon dial R13.19(Not Applicable) - Akbar Teresa MD
[2023-04-11 07:56] VITALS: BP 165/64; PULSE 64; RESP 16; TEMP 36.3; O2SAT 94
[2023-04-11] MEDS: sodium chloride 0.9% 1,000 ML 30 ML IV (08:07)
[2023-04-11 08:11] LABS: Glucose Point of Care 133 mg/dL (70-110)
--- NOTE | 2023-04-11 08:35 | ANES.PREANE2 ---
Pre-Anesthetic Assessment Height/Weight: Height 1.65 m Weight 132.449 kg Temp Pulse Resp BP Pulse Ox O2 Del Method 97.3 F L 64 16 165/64 94 Room Air 04/11/23 07:56 04/11/23 07:56 04/11/23 07:56 04/11/23 07:56 04/11/23 07:56 04/11/23 07:56 Preop Diagnosis: Esophageal dysphagia Operation Date: 04/11/23 08:00 Proposed Procedures p [id number] EGD w/Balloon dial R13.19(Not Applicable) - Akbar Teresa MD Familial anesthetic complications: None Was Beta Lalo taken within 24 hours: N/A Was Clonidine taken within 24 hours: N/A Last intake: Intake Last Liquid Date 04/10/23 Last Liquid Time 20:00 Last Solid Date 04/10/23 Last Solid Time 20:00 Social No alcohol and No tobacco Exam alert, oriented x 3, clear to auscultation bilaterally and regular rate & rhythm Airway Submandibular: within normal limits (Small mouth opening) Cervical ROM: within normal limits Mallampati: Class III Comments: Comments: Several missing/poor dentition History/ROS No significant history except as noted and No significant complaints Pulmonary Chronic Obstructive Pulmonary Disease (Chronic bronchitis), Cough, Exertional Dyspnea and Sleep Apnea CV/HEM Coronary Artery Disease, Deep Vein Thrombosis (After COVID, patient experienced a PE. Was on anticoagulation for 2 months then was taken off), Hypertension, Myocardial Infarction (No intervention. Patient states she found out 4-5 years after it happened) and Peripheral Vascular Disease Urinary Tract Infection Hepatic None reported GI Gastroesophageal Reflux Disease Metabolic Diabetes Mellitus, Hyperlipidemia and Morbid Obesity [facility] Osteoarthritis/DJD Neuropsych Neuropathy Anesthetic Plan ASA status: 3 Anesthesia: Anesthesia Evaluation, General and MAC Risk of > 500 ml blood loss (7ml/kg in children): No Medications/Allergies Home Medications Medication Instructions Recorded Confirmed Last Taken Type fluoxetine 20 mg capsule 20 mg PO QAM 11/02/19 04/10/23 04/10/23 History acyclovir 400 mg tablet 400 mg PO BID 06/06/20 04/10/23 04/10/23 History ergocalciferol (vitamin D2) 1,250 50,000 unit PO Q7D 06/06/20 04/10/23 04/10/23 History mcg (50,000 unit) capsule gabapentin 300 mg capsule 300 mg PO BID 07/19/22 04/10/23 04/10/23 History insulin glargine 100 unit/mL 75 unit SUBCUT BID 07/19/22 04/10/23 04/10/23 History subcutaneous solution (Lantus U-100 Insulin) losartan 100 mg tablet 100 mg PO QAM 07/19/22 04/10/23 04/10/23 History sitagliptin phosphate 100 mg 100 mg PO QPM 07/19/22 04/10/23 04/10/23 History tablet (Januvia) furosemide 20 mg tablet 40 mg PO QAM 02/19/23 04/10/23 04/10/23 History amlodipine 10 mg tablet 10 mg PO DAILY #30 tabs 02/20/23 04/10/23 04/10/23 Rx lovastatin 20 mg tablet 40 mg PO QPM #30 tabs 02/20/23 04/10/23 04/10/23 Rx pantoprazole 40 mg tablet,delayed 40 mg PO BID 04/10/23 04/10/23 04/10/23 History release valacyclovir 500 mg tablet 500 mg PO BID PRN Outbreak 04/10/23 04/10/23 04/10/23 History (Valtrex) Allergies Allergy/AdvReac Type Severity Reaction Status Date / Time Penicillins Allergy High Fevers Verified 04/11/23 07:49 promethazine [From Phenergan] Allergy ADR-Dizzine Verified 04/11/23 07:49 ss Current Medications Generic Name Dose Route Start Last Admin Trade Name Freq PRN Reason Stop Dose Admin Sodium Chloride 1,000 mls @ 30 mls/hr 04/11/23 07:45 04/11/23 08:07 Sodium Chloride 0.9% IV 30 mls/hr .Q24H ZOILA Administration PFSH Anesthesia Medical History Acute UTI (urinary tract infection) COPD (chronic obstructive pulmonary disease) COVID-19 Herpes Hyperlipidemia Hypertension Hypoxia Morbid obesity with BMI of 45.0-49.9, adult Primary osteoarthritis of right knee Pulmonary embolism COVID related Type 2 diabetes mellitus URI (upper respiratory infection) Surgical History History of appendectomy S/P partial hysterectomy Family History Denies family history of CAD (coronary artery disease) Social History Smoking and tobacco status: never smoked Alcohol intake: never Substance/Drug Use: never Data Anesthesia 04/11/23 07:55 Cardiac Studies: No Data to Display
[2023-04-11 08:38] LABS: Blood Urea Nitrogen 19 mg/dL (8-23); Calcium 9.8 mg/dL (8.5-10.5); Carbon Dioxide 30 mmol/L (22-29); Chloride 104 mmol/L (98-107); Glomerular Filtration Rate 49.5 mL/min (90-130); Glucose 125 mg/dL (65-115); Osmolality Calculated 298 mOsm/kg (285-295); Sodium 142 mmol/L (136-145)
[2023-04-11 08:39] LABS: Anion Gap 12.5 (5-19); Potassium 4.5 mmol/L (3.5-5.1)
[2023-04-11 09:22] VITALS: BP 138/50; PULSE 70; RESP 14; TEMP 36.3; O2SAT 95
[2023-04-11 09:32] VITALS: BP 124/55; PULSE 69; RESP 14; O2SAT 96
[2023-04-11 09:45] VITALS: BP 145/61; PULSE 67; RESP 16; O2SAT 95
--- NOTE | 2023-04-11 10:00 | ANE.PACU2 ---
Inpatient post-anesthesia follow up: Airway intact: Yes Vital signs: Temperature 97.4 F Pulse Rate 67 Respiratory Rate 16 Blood Pressure 145/61 Pulse Oximetry 95 Oxygen Delivery Me thod Room Air Oxygen Flow Rate 5 Fraction of Inspir ed Oxygen Hydration adequate: Yes Nausea and vomiting: No Pain level: 1
== END 2023-04-11 10:00 | disposition home or self-care (01) ==
PROVIDERS: Anesthesiology; PCP Family Medicine; Visit Provider Surgery
DX: R13.19 Other dysphagia (principal); K31.7 Polyp of stomach and duodenum; K29.70 Gastritis, unspecified, without bleeding; J44.9 Chronic obstructive pulmonary disease, unspecified; G47.30 Sleep apnea, unspecified; I25.10 Atherosclerotic heart disease of native coronary artery without angina pectoris; Z86.718 Personal history of other venous thrombosis and embolism; K21.9 Gastro-esophageal reflux disease without esophagitis; E11.9 Type 2 diabetes mellitus without complications; E78.5 Hyperlipidemia, unspecified; E66.01 Morbid (severe) obesity due to excess calories; Z68.42 Body mass index [BMI] 45.0-49.9, adult; I10 Essential (primary) hypertension
CPT/HCPCS: 36415; 36416; 43239; 80048; 82962; 88305; J2704; J7030

== ENCOUNTER → 2023-04-22 08:40 | Outpatient (BNVA) | payer MEDICARE, MEDICAID, SELFPAY | PROVIDERS: PCP Family Medicine; Visit Provider Surgery | DX: Z09 Encounter for follow-up examination after completed treatment for conditions other than malignant neoplasm (principal) | CPT/HCPCS: 99213 ==

== ENCOUNTER → 2023-05-13 08:43 | Outpatient (BNVA) | payer MEDICARE, MEDICAID, SELFPAY | PROVIDERS: PCP Family Medicine; Visit Provider Podiatrist Foot & Ankle Surgery | DX: B35.1 Tinea unguium (principal); I73.9 Peripheral vascular disease, unspecified; G62.9 Polyneuropathy, unspecified; R60.9 Edema, unspecified; E11.42 Type 2 diabetes mellitus with diabetic polyneuropathy; Z79.4 Long term (current) use of insulin | CPT/HCPCS: 11721 ==

== ENCOUNTER → 2023-07-15 13:37 | Outpatient (BNVA) | payer MEDICARE, MEDICAID, SELFPAY | PROVIDERS: PCP Family Medicine; Visit Provider Podiatrist Foot & Ankle Surgery | DX: B35.1 Tinea unguium (principal); E11.8 Type 2 diabetes mellitus with unspecified complications; I73.9 Peripheral vascular disease, unspecified; G62.9 Polyneuropathy, unspecified; R60.9 Edema, unspecified; E11.42 Type 2 diabetes mellitus with diabetic polyneuropathy; Z79.4 Long term (current) use of insulin | CPT/HCPCS: 11721 ==

== ENCOUNTER → 2023-09-16 08:27 | Outpatient (BNVA) | payer MEDICARE, MEDICAID, SELFPAY | PROVIDERS: PCP Family Medicine; Visit Provider Podiatrist Foot & Ankle Surgery | DX: B35.1 Tinea unguium (principal); I73.9 Peripheral vascular disease, unspecified; G62.9 Polyneuropathy, unspecified; R60.9 Edema, unspecified; E11.42 Type 2 diabetes mellitus with diabetic polyneuropathy; Z79.4 Long term (current) use of insulin | CPT/HCPCS: 11721 ==

== ENCOUNTER 2023-11-19 08:22 | Emergency (ER) | payer MEDICARE, MEDICAID, SELFPAY ==
[2023-11-19 08:22] VITALS: BMI 49.9
[2023-11-19 08:25] VITALS: BP 117/91; PULSE 53; RESP 16; TEMP 36.6; O2SAT 96
--- NOTE | 2023-11-19 08:28 | W.ED.GENADLT ---
HPI - General Adult General: Chief complaint: Recheck/Abnormal Lab/Rx Stated complaint: Low blood sugar Time Seen by Provider: 11/19/23 08:25 History of Present Illness: 67-year-old female with a history of obesity, diabetes COPD, pulmonary embolism, hyperlipidemia and hypertension who presents to the emergency room after being found to have decreased responsiveness. EMS reports she was hypoglycemic in the 30s. She is now awake and alert. She says she had a urinary tract infection and took some antibiotics Saturday but they made her throw up all night so she is quit taking them. No fevers. No chest pain. No vomiting since Saturday. No focal motor deficits. Review of Systems Narrative: Constitutional symptoms: Negative except as documented in HPI. Skin symptoms: Negative except as documented in HPI. Eye symptoms: Negative except as documented in HPI. ENMT symptoms: Negative except as documented in HPI. Respiratory symptoms: Negative except as documented in HPI. Cardiovascular symptoms: Negative except as documented in HPI. Gastrointestinal symptoms: Negative except as documented in HPI. Genitourinary symptoms: Negative except as documented in HPI. Musculoskeletal symptoms: Negative except as documented in HPI. Neurologic symptoms: Negative except as documented in HPI. Psychiatric symptoms: Negative except as documented in HPI. Endocrine symptoms: Negative except as documented in HPI. [facility] ED PFSH: Medical History Pulmonary embolism COVID related Type 2 diabetes mellitus COPD (chronic obstructive pulmonary disease) Hypertension Hyperlipidemia Herpes Hypoxia URI (upper respiratory infection) Acute UTI (urinary tract infection) COVID-19 Primary osteoarthritis of right knee Morbid obesity with BMI of 45.0-49.9, adult Surgical History S/P partial hysterectomy History of appendectomy Family History Denies family history of CAD (coronary artery disease) Social History Smoking and tobacco/nicotine status: never used tobacco/nicotine Alcohol intake: never Substance/Drug Use: never Physical Exam Narrative: EXAM NARRATIVE: General: Alert, no acute distress. Skin: Warm, dry. Head: Normocephalic, atraumatic. Neck: Supple, trachea midline. Eye: Extraocular movements are intact. Ears, nose, mouth and throat: mucosa moist. Cardiovascular: Regular, Normal peripheral perfusion. Respiratory: Lungs are clear to auscultation, respirations are non-labored, breath sounds are equal, Symmetrical chest wall expansion. Gastrointestinal: Soft, Nontender, Non distended, Normal bowel sounds. Musculoskeletal: Normal ROM, no deformity. Neurological: Alert and oriented, No focal neurological deficit observed. Psychiatric: Cooperative, appropriate mood & affect. Course Vital Signs: Vital signs: Vital Signs Temperature 97.9 F 11/19/23 08:25 Pulse Rate 54 L 11/19/23 09:31 Respiratory Rate 16 11/19/23 08:25 Blood Pressure 153/64 11/19/23 09:31 Pulse Oximetry 92 11/19/23 09:31 Oxygen Delivery Me thod Room Air 11/19/23 09:31 MDM - General Adult Medical Decision Making Medical decision making: Differential diagnosis including but not limited to and based on the above HPI, review of systems and physical exam: In this patient with hyperglycemia would have concern for underlying infection my be exacerbating this. Concern for renal failure. CBC, BMP, lactate, blood cultures, urinalysis were ordered. Orders placed to evaluate differential diagnosis based on the above differential, HPI and physical exam Lab Review: Laboratory results were reviewed and interpreted by myself the emergency room physician. White count is 9.4. Hemoglobin 14.7. Lactate is 1.3. BUN/creatinine are 16 and 1.3. Glucose on CBC is 128. Glucose is discharge is 131. Patient is tolerating fluids. She still does have urinary tract infection and has not been taking her antibiotics ongoing to put her on Omnicef. Give her some Rocephin here. Chest x-ray: No acute process. No infiltrate. No pneumothorax. Stable cardiomegaly. This was reviewed and interpreted by myself the ER physician. Reexamination: Patient remained stable. No increased work of breathing. No altered mental status. No focal motor deficits. Lab Data 11/19/23 09:00 11/19/23 09:23 Laboratory Results WBC 9.42 10^3/uL (3.29-11.43) 11/19/23 09:00 RBC 4.87 10^6/uL (3.85-5.65) 11/19/23 09:00 Hgb 14.70 g/dL (11.27-16.99) 11/19/23 09:00 Hct 47.8 % (36-47) H 11/19/23 09:00 MCV 98.2 fl (85-98) H 11/19/23 09:00 MCH 30.2 pg (27-33) 11/19/23 09:00 MCHC 30.8 g/dL (30-55) 11/19/23 09:00 RDW 13.1 % (12.1-15.1) 11/19/23 09:00 Plt Count 196 10^3/cmm (157-399) 11/19/23 09:00 MPV 11.0 fL (7.4-10.4) H 11/19/23 09:00 Neut % (Auto) 78.8 % 11/19/23 09:00 Lymph % (Auto) 13.8 % 11/19/23 09:00 [place] % (Auto) 6.4 % 11/19/23 09:00 Eos % (Auto) 0.2 % 11/19/23 09:00 Baso % (Auto) 0.5 % 11/19/23 09:00 Neut # (Auto) 7.42 10^3/uL (1.8-7.7) 11/19/23 09:00 Lymph # (Auto) 1.3 10^3/uL (0.8-4.8) 11/19/23 09:00 [place] # (Auto) 0.6 10^3/uL (0.2-0.9) 11/19/23 09:00 Eos # (Auto) 0.0 10^3/uL (0.0-0.8) 11/19/23 09:00 Baso # (Auto) 0.1 10^3/uL (0.0-0.1) 11/19/23 09:00 Nucleated RBC % (auto) 0 % 11/19/23 09:00 Nucleated RBCs # 0.0 /100WBC 11/19/23 09:00 Sodium 144 mmol/L (136-145) 11/19/23 09:23 Potassium 4.6 mmol/L (3.5-5.1) 11/19/23 09:23 Chloride 108 mmol/L (98-107) H 11/19/23 09:23 Carbon Dioxide 28 mmol/L (22-29) 11/19/23 09:23 Anion Gap 12.6 (5-19) 11/19/23 09:23 BUN 16 mg/dL (8-23) 11/19/23 09:23 Creatinine 1.3 mg/dL (0.5-0.9) H 11/19/23 09:23 GFR Calculation 40.9 mL/min (90-130) L 11/19/23 09:23 Glucose 128 mg/dL (65-115) H 11/19/23 09:23 POC Glucose 137 mg/dL (70-110) H 11/19/23 10:03 Calculated Osmolality 301 mOsm/kg (285-295) H 11/19/23 09:23 Lactic Acid 1.3 mmol/L (0.5-2.2) 11/19/23 09:00 Calcium 10.1 mg/dL (8.5-10.5) 11/19/23 09:23 Total Bilirubin 0.3 mg/dL (0.15-1.2) 11/19/23 09:23 AST 13 U/L (0-32) 11/19/23 09:23 ALT 12 U/L (0-33) 11/19/23 09:23 Alkaline Phosphatase 82 U/L (35-105) 11/19/23 09:23 Total Protein 7.1 g/dL (6.6-8.7) 11/19/23 09: Albumin 3.4 g/dL (3.5-5.2) L 11/19/23 09:23 Globulin 3.7 g/dL (1.3-4.6) 11/19/23 09:23 Urine Color Yellow (Yellow) 11/19/23 09:07 Urine Appearance Sl hazy (CLEAR) A 11/19/23 09: Urine pH 6 (5-7) 11/19/23 09: Ur Specific [place] 1.020 (1.005-1.030) 11/19/23 09:07 Urine Protein Neg (Negative) 11/19/23 09:07 Urine Glucose (UA) Norm (Normal) 11/19/23 09: Urine Ketones 1+ (Negative) H 11/19/23 09: Urine Blood Neg (Negative) 04/09/24 09:07 Urine Nitrate Negative (Negative) 11/19/23 09:07 Urine Bilirubin Neg (Negative) 11/19/23 09:07 Urine Urobilinogen Norm mg/dL (Negative) 11/19/23 09:07 Ur Leukocyte Esterase Negative (Negative) 11/19/23 09:07 Urine RBC None /hpf (0-2) 11/19/23 09:07 Urine WBC 0-4 /hpf (0-5) H 11/19/23 09:07 Ur Squamous Epith Cells 5-10 /hpf (0-5) H 11/19/23 09:07 Amorphous Sediment Not Reportable 11/19/23 09:07 Urine Bacteria 1+ /hpf (NONE) H 11/19/23 09:07 Urine Mucus Trace /hpf 11/19/23 09:07 All radiology interpretation(s) finalized by discharge Other Data Assessment and plan: Hypoglycemia Urinary tract infection - Patient tolerating food. Glucose is now stable. Rocephin for urinary tract infection - Discharged home - Discussed findings and plan with patient. Answered any questions. - All laboratory values were reviewed and interpreted personally by myself, the ER physician - All imaging was reviewed and interpreted personally by myself, the ER physician. - Evaluation and treatment of this problem were appropriate in the emergency setting Discharge Plan Discharge Patient Disposition: Home Clinical Impression: Hypoglycemia, Urinary tract infection Condition: Stable Prescriptions: New cefdinir 300 mg capsule 300 mg PO BID 5 Days Qty: 10 0RF No Action fluoxetine 20 mg capsule 20 mg PO QAM acyclovir 400 mg Tablet 400 mg PO BID ergocalciferol (vitamin D2) 1,250 mcg (50,000 unit) Capsule 50,000 unit PO Q7D Rx Instructions: takes on th lovastatin 40 mg tablet 40 mg PO QPM cephalexin 500 mg capsule 500 mg PO TID insulin glargine [Lantus U-100 Insulin] 100 unit/mL Solution 75 unit SUBCUT BID losartan 100 mg Tablet 100 mg PO QAM Januvia 100 mg Tablet 100 mg PO QPM furosemide 20 mg tablet 40 mg PO QAM amlodipine 10 mg tablet 10 mg PO DAILY Qty: 30 0RF valacyclovir [Valtrex] 500 mg Tablet 500 mg PO BID PRN (Reason: Outbreak) pantoprazole 40 mg tablet,delayed release (DR/EC) 40 mg PO DAILY Discharge Orders: Discharge ED (Routine); Ordered 11/19/23 Ordered By: Keyla Valadez Referrals: Ene Richards MD [Primary Care Provider] - (You have been screened and evaluated and felt safe for discharge. Health conditions do change or evolve sometimes and as such it is important that you follow up with your Primary Doctor to be re checked, 3-5 days is a general good time frame for follow up. You are always welcome to return to the ED for re assessment if your symptoms are worsening or you have new concerns) Discharge Diet: Usual diet Discharge Activity: Resume usual activity Patient Instructions: Hypoglycemia in a Person with Diabetes (ED), Urinary Tract Infection in Older Adults (ED) Coding Level of Care Code ED Technology Education Teacher for Karl Longoria
[2023-11-19 08:30] LABS: Glucose Point of Care 81 mg/dL (70-110)
[2023-11-19 09:09] LABS: Basophils # 0.1 10^3/uL (0.0-0.1); Basophils % 0.5 %; Eosinophils % 0.2 %; Hematocrit 47.8 % (36-47); Lymphocytes # 1.3 10^3/uL (0.8-4.8); Lymphocytes % 13.8 %; Mean Corpuscular HGB Conc 30.8 g/dL (30-55); Mean Corpuscular Hemoglobin 30.2 pg (27-33); Mean Corpuscular Volume 98.2 fl (85-98); Monocytes # 0.6 10^3/uL (0.2-0.9); Monocytes % 6.4 %; Neutrophils # 7.42 10^3/uL (1.8-7.7); Neutrophils % 78.8 %; Nucleated Red Blood Cells % 0 %; Platelet Count 196 10^3/cmm (157-399); Red Blood Count 4.87 10^6/uL (3.85-5.65); Red Cell Distribution Width 13.1 % (12.1-15.1); White Blood Count 9.42 10^3/uL (3.29-11.43)
[2023-11-19 09:12] VITALS: BP 165/65; PULSE 54; O2SAT 96
[2023-11-19 09:26] LABS: Lactic Sepsis W/Reflex 1.3 mmol/L (0.5-2.2)
[2023-11-19 09:26] LABS: Bilirubin Urine Neg (Negative); Blood Urine Neg (Negative); Glucose Urine UA Norm (Normal); Ketones Urine 1+ (Negative); Leukocyte Esterase Urine Negative (Negative); Nitrate Urine Negative (Negative); Protein Urine Neg (Negative); Urine Appearance SL Hazy (CLEAR); Urine Color Yellow (Yellow); Urobilinogen Urine Norm (Negative); pH Urine 6 (5-7)
[2023-11-19 09:31] VITALS: BP 153/64; PULSE 54; O2SAT 92
[2023-11-19 09:45] LABS: Add Urine Culture? No; Bacteria Urine 1+ /hpf; Mucus Urine TRACE /hpf; WBC Urine 0-4 /hpf (0-5)
[2023-11-19 09:48] LABS: Alanine Aminotransferase 12 U/L (0-33); Albumin Level 3.4 g/dL (3.5-5.2); Alkaline Phosphatase 82 U/L (35-105); Anion Gap 12.6 (5-19); Aspartate Amino Transferase 13 U/L (0-32); Blood Urea Nitrogen 16 mg/dL (8-23); Calcium 10.1 mg/dL (8.5-10.5); Carbon Dioxide 28 mmol/L (22-29); Chloride 108 mmol/L (98-107); Globulin 3.7 g/dL (1.3-4.6); Glomerular Filtration Rate 40.9 mL/min (90-130); Glucose 128 mg/dL (65-115); Osmolality Calculated 301 mOsm/kg (285-295); Potassium 4.6 mmol/L (3.5-5.1); Sodium 144 mmol/L (136-145); Total Bilirubin 0.3 mg/dL (0.15-1.2); Total Protein 7.1 g/dL (6.6-8.7)
[2023-11-19] MEDS: cefTRIAXone 1,000 MG in sodium chloride 0.9% (plus) 50 ML 100 MG IV (10:07)
[2023-11-19 10:10] LABS: Glucose Point of Care 137 mg/dL (70-110)
[2023-11-19 11:04] VITALS: BP 162/71; PULSE 55; O2SAT 94
== END 2023-11-19 11:05 | disposition home or self-care (01) ==
PROVIDERS: Emergency Provider Emergency Medicine; PCP Family Medicine
DX: E11.649 Type 2 diabetes mellitus with hypoglycemia without coma (principal); N39.0 Urinary tract infection, site not specified; Z79.4 Long term (current) use of insulin; J44.9 Chronic obstructive pulmonary disease, unspecified; I10 Essential (primary) hypertension; E78.5 Hyperlipidemia, unspecified; Z87.440 Personal history of urinary (tract) infections
CPT/HCPCS: 36415; 36416; 80053; 81001; 82962; 83605; 85025; 87040; 96365; 99284; J0696

== ENCOUNTER → 2023-11-29 08:34 | Outpatient (BNVA) | payer MEDICARE, MEDICAID, SELFPAY | PROVIDERS: PCP Family Medicine; Visit Provider Podiatrist Foot & Ankle Surgery | DX: B35.1 Tinea unguium (principal); I73.9 Peripheral vascular disease, unspecified; G62.9 Polyneuropathy, unspecified; R60.9 Edema, unspecified; E11.42 Type 2 diabetes mellitus with diabetic polyneuropathy; Z79.4 Long term (current) use of insulin | CPT/HCPCS: 11721 ==

== ENCOUNTER → 2024-02-07 09:18 | Outpatient (BNVA) | payer MEDICARE, MEDICAID, SELFPAY | PROVIDERS: PCP Family Medicine; Visit Provider Podiatrist Foot & Ankle Surgery | DX: B35.1 Tinea unguium (principal); I73.9 Peripheral vascular disease, unspecified; G62.9 Polyneuropathy, unspecified; R60.9 Edema, unspecified; E11.42 Type 2 diabetes mellitus with diabetic polyneuropathy; Z79.4 Long term (current) use of insulin | CPT/HCPCS: 11721 ==

== ENCOUNTER → 2024-04-17 08:51 | Outpatient (BNVA) | payer MEDICARE, MEDICAID, SELFPAY | PROVIDERS: PCP Family Medicine; Visit Provider Podiatrist Foot & Ankle Surgery | DX: E11.42 Type 2 diabetes mellitus with diabetic polyneuropathy (principal); B35.1 Tinea unguium; I73.9 Peripheral vascular disease, unspecified; G62.9 Polyneuropathy, unspecified; R60.9 Edema, unspecified; Z79.4 Long term (current) use of insulin | CPT/HCPCS: 11721 ==

== ENCOUNTER 2024-04-21 11:51 | Outpatient (CLI) | payer MEDICARE, MEDICAID, SELFPAY ==
--- NOTE | 2024-04-21 12:15 | XRR_ITS ---
PROCEDURE INFORMATION: Exam: XR Chest Exam date and time: 04/21/2024 10:25 AM Age: 68 years old Clinical indication: Dyspnea; Additional info: Dyspnea on exertion TECHNIQUE: Imaging protocol: Radiologic exam of the chest. Views: 2 views. COMPARISON: CR XR chest 2V* [id number] 08/13/2023 9:58 AM FINDINGS: Lungs: Suboptimal pulmonary expansion with associated accentuation of bronchovascular markings. Pleural spaces: No pleural effusion or pneumothorax. Heart/Mediastinum: Unremarkable. Bones/joints: Mild degenerative change present in the spine. XR/XR chest 2V* [id number] IMPRESSION: No acute pathology or significant interval change given technique.
== END 2024-04-21 11:52 | disposition home or self-care (01) ==
LOC: RADOUTREAD 11:53
PROVIDERS: PCP Family Medicine; Visit Provider Family Medicine
DX: R06.09 Other forms of dyspnea (principal)

== ENCOUNTER 2024-05-19 15:02 | Outpatient (CLI) | payer MEDICARE, MEDICAID, SELFPAY ==
--- NOTE | 2024-05-19 15:06 | CTR_ITS ---
PROCEDURE INFORMATION: Exam: CTA Chest With Contrast Exam date and time: 05/19/2024 3:32 PM Age: 68 years old Clinical indication: Abnormal findings; Abnormal diagnostic tests; Patient HX: Elevated d-dimer, SOB worse with exertion. HX of pes x 2 years ago; Additional info: Elevated d dimer TECHNIQUE: Imaging protocol: Computed tomographic angiography of the chest with contrast. Exam focused on the arteries. 3D rendering (Not supervised by radiologist): MIP and/or 3D reconstructed images were created by the technologist. Radiation optimization: All CT scans at this facility use at least one of these dose optimization techniques: automated exposure control; mA and/or kV adjustment per patient size (includes targeted exams where dose is matched to clinical indication); or iterative reconstruction. Contrast material: OMNI 350; Contrast volume: 100 ml; Contrast route: INTRAVENOUS (IV); COMPARISON: CT angio chest PE protcl [id number] 06/06/2020 2:55 PM RADIATION DOSE METRICS: Total DLP (mGy-cm): 390.46 FINDINGS: Pulmonary arteries: Normal. No pulmonary emboli. Aorta: Unremarkable. No aortic aneurysm. No aortic dissection. Lungs: Unremarkable. No consolidation. No masses. Pleural spaces: Unremarkable. No pneumothorax. No pleural effusion. Heart: Unremarkable. No cardiomegaly. No pericardial effusion. Lymph nodes: Unremarkable. No enlarged lymph nodes. Bones/joints: Unremarkable. No acute fracture. Soft tissues: Unremarkable. CT/CT angio chest PE protcl [id number] IMPRESSION: No acute findings.
[2024-05-19 15:47] LABS: Blood Urea Nitrogen 17 mg/dL (8-23); Glomerular Filtration Rate 44.7 mL/min (90-130)
[2024-05-19] MEDS: iohexol 350 mg/mL 500 mL Btl (per mL) IV (15:47)
== END 2024-05-19 15:03 | disposition home or self-care (01) ==
LOC: RAD 15:03
PROVIDERS: Radiology Diagnostic Radiology; PCP Family Medicine; Visit Provider Family Medicine
DX: R79.1 Abnormal coagulation profile (principal)
CPT/HCPCS: 71275; 82565; 84520

== ENCOUNTER 2024-06-02 10:54 | Outpatient (CLI) | payer MEDICARE, MEDICAID, SELFPAY ==
[2024-06-02 11:08] VITALS: PULSE 64; RESP 18; O2SAT 96
[2024-06-02] MEDS: albuterol 2.5 mg/3 mL Neb INHALATION (11:08)
[2024-06-02 11:12] VITALS: PULSE 61
--- NOTE | 2024-06-02 11:34 | USCV_ITS ---
Celeste Rose Age: 68 Gender: F : 1955 Exam Date: 06/02/2024 12:44 Ordering Phys: Ene Richards MD Technologist: NOAH [place]am [place] [facility] [place] Indication: KHAN BP: 140 / 65 HR: 76 Rhythm: Sinus Technical Quality: Adequate MEASUREMENTS (Male / Female) Normal Values 2D ECHO LV Diastolic Diameter PLAX 5.1 cm 4.2 - 5.9 / 3.9 - 5.3 cm IVS Diastolic Thickness 1.1 cm 0.6 - 1.0 / 0.6 - 0.9 cm IVS Systolic Thickness 1.5 cm LVPW Diastolic Thickness 1.9 cm 0.6 - 1.0 / 0.6 - 0.9 cm LVPW Systolic Thickness 2.7 cm LVOT Diameter 2.0 cm LV Ejection Fraction 2D Teich 53.4 % LV Ejection Fraction MOD 4C 70.8 % LV Ejection Fraction MOD 2C 52.6 % LV Ejection Fraction 2C AL 57.0 % LA Diameter 3.8 cm RA Systolic Volume 4C AL 40.1 ml RA Systolic Volume 4C MOD 39.7 ml LA Sys Volume AL 35.2 cm cubed LA Sys Volume Index AL 13.6 cm cubed/m squared Aorta at Sinotubular Diameter 2.3 cm IVC Diameter 1.5 cm M-MODE LA Ao Ratio MM 1.0 AV Cusp Separation MM 1.7 cm DOPPLER AV Peak Velocity 201.0 cm/s LVOT Peak Velocity 130.0 cm/s AV Area Cont Eq vti 2.4 cm squared AV Area Cont Eq pk 2.0 cm squared MV Peak Velocity 141.0 cm/s MV Area PHT 2.0 cm squared Mitral E to A Ratio 0.9 TR Peak Velocity 167.0 cm/s TR Peak Gradient 11.2 mmHg TR Mean Velocity 145.0 cm/s TR Mean Gradient 8.8 mmHg TR Velocity Time Integral 46.5 cm TV Peak E Velocity 59.0 cm/s Right Atrial Pressure 3.0 mmHg Pulmonary Artery Systolic Pressu 14.2 mmHg PV Peak Velocity 183.0 cm/s RV Ejection Time 0.3 s FINDINGS Left Ventricle Normal left ventricular size and systolic function, EF 60%.. No regional wall motion abnormalities. Grade I/IV diastolic dysfunction (abnormal relaxation filling pattern), normal to mildly elevated filling pressures. Right Ventricle The right ventricle is normal in size and function. Right Atrium The right atrium is normal in size. Left Atrium The left atrium is normal in size. Mitral Valve Trace mitral valve regurgitation. Aortic Valve No gross abnormalities noted Tricuspid Valve Trace tricuspid valve regurgitation. Pulmonic Valve Pulmonic valve not well visualized. Pericardium Normal pericardium without effusion. Aorta Normal ascending aorta dimension. IVC Not visualized well CONCLUSIONS Normal left ventricular size and systolic function, EF 60%.. No regional wall motion abnormalities. Grade I/IV diastolic dysfunction (abnormal relaxation filling pattern), normal to mildly elevated filling pressures. Trace mitral valve regurgitation. Trace tricuspid valve regurgitation. Estimated pulmonary artery peak systolic pressure, possibly within normal limits There is no pericardial effusion. Technically difficult study because of the poor ultrasonic window. Dr Richie Bach MD FACC (Electronically Signed) Final Date: 03 June 2024 07:43 S
== END 2024-06-02 10:55 | disposition home or self-care (01) ==
PROVIDERS: PCP Family Medicine; Visit Provider Family Medicine
DX: I50.30 Unspecified diastolic (congestive) heart failure (principal); R06.09 Other forms of dyspnea; R94.2 Abnormal results of pulmonary function studies
CPT/HCPCS: 93306; 94060; 94726; 94729; J7613

== ENCOUNTER → 2024-08-27 13:05 | Outpatient (BNVA) | payer MEDICARE, MEDICAID, SELFPAY | PROVIDERS: PCP Family Medicine; Visit Provider Podiatrist Foot & Ankle Surgery | DX: E11.42 Type 2 diabetes mellitus with diabetic polyneuropathy (principal); B35.1 Tinea unguium; I73.9 Peripheral vascular disease, unspecified; G62.9 Polyneuropathy, unspecified; R60.9 Edema, unspecified; Z79.4 Long term (current) use of insulin | CPT/HCPCS: 11721; 99213 ==

== ENCOUNTER → 2024-10-29 13:22 | Outpatient (BNVA) | payer MEDICARE, MEDICAID, SELFPAY | PROVIDERS: PCP Family Medicine; Visit Provider Podiatrist Foot & Ankle Surgery | DX: E11.42 Type 2 diabetes mellitus with diabetic polyneuropathy (principal); B35.1 Tinea unguium; I73.9 Peripheral vascular disease, unspecified; G62.9 Polyneuropathy, unspecified; R60.9 Edema, unspecified; Z79.4 Long term (current) use of insulin | CPT/HCPCS: 11721; 99213 ==

== ENCOUNTER → 2024-12-31 14:07 | Outpatient (BNVA) | payer MEDICARE, MEDICAID, SELFPAY | PROVIDERS: PCP Family Medicine; Visit Provider Podiatrist Foot & Ankle Surgery | DX: E11.42 Type 2 diabetes mellitus with diabetic polyneuropathy (principal); B35.1 Tinea unguium; I73.9 Peripheral vascular disease, unspecified; G62.9 Polyneuropathy, unspecified; R60.9 Edema, unspecified; Z79.4 Long term (current) use of insulin | CPT/HCPCS: 11721; 99213 ==

== ENCOUNTER → 2025-03-09 07:01 | Outpatient (BNVA) | payer MEDICARE, MEDICAID, SELFPAY | PROVIDERS: PCP Family Medicine; Visit Provider Podiatrist Foot & Ankle Surgery | DX: E11.42 Type 2 diabetes mellitus with diabetic polyneuropathy (principal); B35.1 Tinea unguium; I73.9 Peripheral vascular disease, unspecified; G62.9 Polyneuropathy, unspecified; R60.9 Edema, unspecified; Z79.4 Long term (current) use of insulin | CPT/HCPCS: 11721 ==

== ENCOUNTER → 2025-05-11 10:19 | Outpatient (BNVA) | payer MEDICARE, MEDICAID, SELFPAY | PROVIDERS: PCP Family Medicine; Visit Provider Podiatrist Foot & Ankle Surgery | DX: E11.42 Type 2 diabetes mellitus with diabetic polyneuropathy (principal); B35.1 Tinea unguium; E11.8 Type 2 diabetes mellitus with unspecified complications; I73.9 Peripheral vascular disease, unspecified; G62.9 Polyneuropathy, unspecified; R60.9 Edema, unspecified; Z79.4 Long term (current) use of insulin | CPT/HCPCS: 11721 ==